=== PATIENT | male | born 1955 | race Caucasian/White ===

== ENCOUNTER 2016-07-06 08:51 | Outpatient (CLI) | payer OTHER ==
--- NOTE | 2016-07-06 09:45 | RAD ---
PORTABLE AP CHEST: Date: 07/06/16 HISTORY: Head/neck cancer. COMPARISON: 04/17/16. FINDINGS: Cardiac silhouette and pulmonary vasculature are within normal limits. Lungs remain expanded, but cl ear. No discrete pulmonary nodule or mass is visualized. There has been no interval change from the prior exam. IMPRESSION: Stable chest without evidence of an acute cardiopulmonary process. POS: [facility]
== END 2016-07-06 08:52 | disposition home or self-care (01) ==
LOC: MADRAD 08:51
PROVIDERS: ATTEND Radiology Radiation Oncology
DX: C12 Malignant neoplasm of pyriform sinus (principal)
CPT/HCPCS: 71020

== ENCOUNTER 2017-10-28 13:18 | Outpatient (CLI) | payer OTHER ==
--- NOTE | 2017-10-28 14:12 | RAD ---
LEFT KNEE THREE VIEWS: HISTORY: Left knee pain. FINDINGS: There is chronic appearing collapse of the medial tibial plateau with severe varus angulation. Less prominent cortical remodeling of the femoral condyles and lateral tibial plateau. Bulky tricompartme ntal osteophytosis. Joint space narrowing at the patellofemoral compartment. Fluid distention of th e suprapatellar bursa. Calcification over the arterial structures. IMPRESSION: 1. Severe osteoarthritic changes, including extensive remodeling of the medial tibial plateau and va woody angulation. Large joint effusion. 2. Atherosclerosis. POS: [facility]
== END 2017-10-28 13:19 | disposition home or self-care (01) ==
LOC: MADRAD 13:18
PROVIDERS: ATTEND Orthopaedic Surgery
DX: M25.562 Pain in left knee (principal); M17.12 Unilateral primary osteoarthritis, left knee; M25.462 Effusion, left knee; I70.90 Unspecified atherosclerosis; M21.862 Other specified acquired deformities of left lower leg

== ENCOUNTER 2019-08-19 19:50 | Emergency (ER) | payer OTHER ==
[2019-08-19] MEDS ORDERED: Sodium Chloride 0.9% 1,000 ML ONE (20:19)
[2019-08-19] MEDS ORDERED: Ondansetron PF 4 MG/2 ML Vial ONE (20:19)
[2019-08-19] MEDS ORDERED: Morphine 4 MG/ML VIAL ONE (20:19)
--- NOTE | 2019-08-19 20:19 | RAD ---
XR Hip Rt 2-3 View INDICATION: Right hip injury COMPARISON: None FINDINGS: Bones: There is a mildly displaced, comminuted right intertrochanteric hip fracture. Hip joint: There is mild to moderate right hip osteoarthrosis. SI joints and symphysis pubis: Radiographically normal. Intrapelvic contents: Visualized bowel gas pattern is within normal limits. Surrounding soft tissues: There are moderate vascular calcifications seen involving the visualized va sculature. IMPRESSION: 1. Mildly displaced, comminuted right intertrochanteric hip fracture.
[2019-08-19 20:20] LABS: #Basophils 0.3 thou/uL (0.0-0.2); #Lymphocytes 0.8 thou/uL (1.20-3.40); #Monocytes 0.8 thou/uL (0.11-0.59); #Neutrophils 9.8 thou/uL (1.40-6.50); %Basophils 2.6 % (0.0-1.0); %Eosinophils 0.1 % (0.0-10.0); %Lymphocytes 6.7 % (21.0-51.0); %Monocytes 6.5 % (0.0-10.0); Hemoglobin 13.2 g/dL (14.0-18.0); Mean Corpuscular HGB CONC 32.1 g/dL (32.0-36.0); Mean Corpuscular Hemoglobin 31.4 pg (27.0-31.0); Mean Platelet Volume 8.5 fL (7.4-10.4); Platelet Count 204 thou/uL (130-400); RBC Distribution Width 11.4 % (11.5-14.5); White Blood Cell (WBC) Count 11.7 thou/uL (4.8-10.8)
--- NOTE | 2019-08-19 20:31 | RAD ---
XR Elbow Rt 4 View STANDARD INDICATION: Elbow pain and injury FINDINGS: Bones: No acute fracture or subluxation is evident.. Joints: Mild osteoarthrosis. No joint capsular distention. Soft tissues: IV cannula seen within the antecubital fossa. IMPRESSION: No acute osseous abnormality.
[2019-08-19] MEDS ORDERED: Adacel (T-DAP) 0.5 ML SYRINGE ONE (20:33)
[2019-08-19 20:34] LABS: Anion Gap 21 mmol/L (10-20); BUN (Urea Nitrogen) 6 mg/dL (8.4-25.7); Calc. Creatinine Clearance 0 mL/min (70-130); Calcium 8.5 mg/dL (7.8-10.44); Carbon Dioxide 19 mmol/L (23-31); Chloride 94 mmol/L (98-107); Estimated GFR-MDRD Greater than 90; Glucose 121 mg/dL (80-115); Potassium 4.7 mmol/L (3.5-5.1); Sodium 129 mmol/L (136-145)
== END 2019-08-19 21:48 | disposition short-term general hospital (02) ==
LOC: MADERS 19:50
DX: S72.001A Fracture of unspecified part of neck of right femur, initial encounter for closed fracture (principal); F17.210 Nicotine dependence, cigarettes, uncomplicated; W17.89XA Other fall from one level to another, initial encounter
CPT/HCPCS: 80048; 85025; 90471; 90715; 96374; 96375; J2270; J2405; J7050

== ENCOUNTER 2019-11-23 13:48 | Outpatient (CLI) | payer MEDICARE, MEDICAID ==
--- NOTE | 2019-11-23 14:37 | RAD ---
RIGHT KNEE 3 VIEWS: Date: 11/23/2019 HISTORY: Osteoarthritis, right knee pain. FINDINGS/IMPRESSION: There are marked degenerative changes in the right knee. No fracture, dislocation, or bony destructio n is seen. Vascular calcifications are present. POS: OFF
== END 2019-11-23 13:49 | disposition home or self-care (01) ==
LOC: MADRAD 13:48
PROVIDERS: ATTEND Orthopaedic Surgery
DX: M17.11 Unilateral primary osteoarthritis, right knee (principal); I70.90 Unspecified atherosclerosis

== ENCOUNTER 2020-02-01 14:14 | Outpatient (CLI) | payer MEDICARE, MEDICAID ==
[2020-02-01 14:34] LABS: Clarity Clear (Clear); Leukocyte Negative (Negative); Nitrite Negative (Negative)
[2020-02-01 14:35] LABS: Bilirubin Negative (Negative); Blood, Urine Negative (Negative); Glucose, Urine (Dipstick) Negative (Negative); Ketone, Urine Negative (Negative); Protein, Urine (Dipstick) Negative (Neg-Trace); Urobilinogen 0.2 mg/dL (Less than 2)
--- NOTE | 2020-02-01 14:37 | RAD ---
EXAM: Two views chest PROVIDED CLINICAL HISTORY: Preoperative evaluation COMPARISON: 12/20/2017 FINDINGS: Cardiac silhouette and pulmonary vasculature are within normal limits. The lungs are clear. Stable w edge-shaped compression deformities are seen involving mid thoracic vertebral bodies. Multilevel degenerative changes are also again seen in the thoracic spine. IMPRESSION: No acute cardiopulmonary process. Stable wedge-shaped compression deformities involving midthoracic vertebral bodies.
[2020-02-01 14:40] LABS: INR-International Normal Ratio 0.9; PTT 29.7 sec (22.9-36.1); Prothrombin Time 12.6 sec (12.0-14.7)
[2020-02-01 14:45] LABS: ALT (SGPT) 16 U/L (8-55); AST (SGOT) 21 U/L (5-34); Alkaline Phosphatase 132 U/L (40-110); Anion Gap 15 mmol/L (10-20); BUN (Urea Nitrogen) 6 mg/dL (8.4-25.7); Bilirubin, Total 0.7 mg/dL (0.2-1.2); Calc. Creatinine Clearance 0 mL/min (70-130); Calcium 9.1 mg/dL (7.8-10.44); Carbon Dioxide 25 mmol/L (23-31); Chloride 93 mmol/L (98-107); Estimated GFR-MDRD Greater than 90; Globulin 3.1 g/dL (2.4-3.5); Glucose 98 mg/dL (80-115); Potassium 4.3 mmol/L (3.5-5.1); Protein, Total 7.1 g/dL (5.8-8.1); Sodium 129 mmol/L (136-145)
[2020-02-01 14:53] LABS: #Basophils 0.1 thou/uL (0.0-0.2); #Eosinphils 0.3 thou/uL (0.0-0.7); #Lymphocytes 1.5 thou/uL (1.20-3.40); #Monocytes 0.6 thou/uL (0.11-0.59); #Neutrophils 3.9 thou/uL (1.40-6.50); %Basophils 1.5 % (0.0-1.0); %Eosinophils 4.7 % (0.0-10.0); %Lymphocytes 23.5 % (21.0-51.0); %Monocytes 8.7 % (0.0-10.0); %Neutrophils 61.6 % (42.0-75.0); Bacteria/HPF Rare-Few HPF (None Seen); Hemoglobin 15.1 g/dL (14.0-18.0); Mean Corpuscular HGB CONC 32.3 g/dL (32.0-36.0); Mean Corpuscular Hemoglobin 31.9 pg (27.0-31.0); Mean Corpuscular Volume 98.8 fL (78.0-98.0); Mean Platelet Volume 7.5 fL (7.4-10.4); Platelet Count 259 thou/uL (130-400); RBC Distribution Width 10.6 % (11.5-14.5); RBC/HPF 0-3 HPF (0-3); Red Blood Cell (RBC) Count 4.74 mill/uL (4.70-6.10); Squamous Epithelial 0-3 HPF (0-3); WBC/HPF None Seen HPF (0-3); White Blood Cell (WBC) Count 6.4 thou/uL (4.8-10.8)
[2020-02-01 21:58] LABS: Creatinine, Urine 121.28 mg/dL (63-166); Microalbumin Urine 1.7 mg/dL (0.5-50.0)
== END 2020-02-01 14:15 | disposition home or self-care (01) ==
LOC: MADLAB 14:14
PROVIDERS: ATTEND Family Medicine
DX: Z01.818 Encounter for other preprocedural examination (principal); Z01.812 Encounter for preprocedural laboratory examination; M43.8X4 Other specified deforming dorsopathies, thoracic region
CPT/HCPCS: 36415; 71046; 80053; 81001; 82043; 85025; 85610; 85730

== ENCOUNTER 2020-05-08 11:50 | Emergency (ER) | payer MEDICARE, MEDICAID ==
[2020-05-08] MEDS ORDERED: Albuterol Sulfate 2.5 mg/0.5 ml Neb ONE (12:02)
[2020-05-08] MEDS ORDERED: methylPREDNISolone Sod Succ/PF 125 MG/2 ML VIAL ONE (12:32)
[2020-05-08] MEDS ORDERED: Ipratropium Bromide 2.5 ml Neb ONE (12:32)
--- NOTE | 2020-05-08 12:34 | RAD ---
Frontal radiograph chest: 05/08/2020 COMPARISON: 02/01/2020 HISTORY: Cough FINDINGS: There is extensive new interstitial opacity with a perihilar/bibasilar predominance, right greater than left. There is focal rounded increased density in the right hilar region. Blunting of bilateral costophrenic angles noted suggesting bilateral pleural effusions. Pulmonary vascular conges tion noted. IMPRESSION: Interstitial opacity in the perihilar regions and both lung bases with small bilateral pl eural effusions. Findings suggest interval development of pulmonary edema. Infectious pneumonitis cannot be excluded. These findings include a focal area of opacity with a rounded configuration in the right hilum. This is new when compared to prior imaging. This suggests focal airspace disease. Mass lesion cannot be fully excluded and thus, short-term follow-up imaging of the chest following treatment is advised to document resolution. CODE T
[2020-05-08 12:52] LABS: CKMB 5.7 ng/mL (0-6.6)
[2020-05-08 12:53] LABS: Hemoglobin 14.3 g/dL (14.0-18.0); Manual Diff?? YES; Mean Corpuscular HGB CONC 32.8 g/dL (32.0-36.0); Mean Corpuscular Hemoglobin 31.3 pg (27.0-31.0); Mean Corpuscular Volume 95.4 fL (78.0-98.0); Mean Platelet Volume 8.4 fL (7.4-10.4); Platelet Count 250 thou/uL (130-400); RBC Distribution Width 11.1 % (11.5-14.5); Red Blood Cell (RBC) Count 4.58 mill/uL (4.70-6.10); White Blood Cell (WBC) Count 11.9 thou/uL (4.8-10.8)
[2020-05-08 12:54] LABS: Anisocytosis SLIGHT = 6-15 cells (100X) (0-5/hpf); Band 2 % (5-11); Lymphocytes 7 % (21-51); Monocytes 10 % (0-10); Neutrophil 81 % (42-75); Platelet Morphology Comment Appears Adequate
[2020-05-08 12:58] LABS: AST (SGOT) 25 U/L (5-34); Albumin 3.9 g/dL (3.4-4.8); Anion Gap 20 mmol/L (10-20); BUN (Urea Nitrogen) 16 mg/dL (8.4-25.7); Bilirubin, Total 1.2 mg/dL (0.2-1.2); Calc. Creatinine Clearance 0 mL/min (70-130); Calcium 8.8 mg/dL (7.8-10.44); Carbon Dioxide 21 mmol/L (23-31); Chloride 87 mmol/L (98-107); Globulin 3.3 g/dL (2.4-3.5); Glucose 204 mg/dL (80-115); Potassium 4.3 mmol/L (3.5-5.1); Protein, Total 7.2 g/dL (5.8-8.1); Sodium 124 mmol/L (136-145)
[2020-05-08 12:59] LABS: ALT (SGPT) 17 U/L (8-55); Alkaline Phosphatase 111 U/L (40-110)
[2020-05-08 14:04] LABS: SARS-CoV-2 NAA Rapid Test Not Detected (NotDetected)
[2020-05-08] MEDS ORDERED: Doxycycline 100 MG CAP ONE (14:17)
[2020-05-08] MEDS ORDERED: Aspirin 325 MG TAB ONE (14:17)
[2020-05-08] MEDS ORDERED: Nitroglycerin 2% Ointment 1 INCH/1 GM Packet ONE (14:34)
[2020-05-08] MEDS ORDERED: Heparin 5,000 UNITS/ML VIAL ONE (14:43)
== END 2020-05-08 15:01 | disposition short-term general hospital (02) ==
LOC: MADERS 11:50
DX: J44.1 Chronic obstructive pulmonary disease with (acute) exacerbation (principal); I21.4 Non-ST elevation (NSTEMI) myocardial infarction; R94.31 Abnormal electrocardiogram [ECG] [EKG]; R06.03 Acute respiratory distress; F17.210 Nicotine dependence, cigarettes, uncomplicated; Z79.82 Long term (current) use of aspirin; Z79.51 Long term (current) use of inhaled steroids; Z79.899 Other long term (current) drug therapy
CPT/HCPCS: 0240U; 71045; 80053; 82553; 83880; 84484; 85025; 87804; 93005; 96374; 96375; J1644; J2930; J7611

== ENCOUNTER 2020-05-17 18:04 | Inpatient (IN) | payer MEDICARE, MEDICAID ==
[2020-05-17] MEDS ORDERED: Zolpidem Tartrate 5 MG TAB PO PRN (18:11)
[2020-05-17] MEDS ORDERED: Nitroglycerin 0.4 MG TAB (25 Tab Bottle) SL PRN (18:11)
[2020-05-17] MEDS ORDERED: Acetaminophen 325 MG TAB PO PRN (18:17)
[2020-05-17 19:03] LABS: ALT (SGPT) 74 U/L (8-55); AST (SGOT) 31 U/L (5-34); Albumin 3.3 g/dL (3.4-4.8); Alkaline Phosphatase 83 U/L (40-110); Anion Gap 13 mmol/L (10-20); BUN (Urea Nitrogen) 13 mg/dL (8.4-25.7); Bilirubin, Total 0.5 mg/dL (0.2-1.2); Calc. Creatinine Clearance 0 mL/min (70-130); Calcium 7.9 mg/dL (7.8-10.44); Carbon Dioxide 29 mmol/L (23-31); Chloride 91 mmol/L (98-107); Globulin 2.3 g/dL (2.4-3.5); Glucose 120 mg/dL (80-115); Potassium 4.3 mmol/L (3.5-5.1); Protein, Total 5.6 g/dL (5.8-8.1); Sodium 129 mmol/L (136-145)
[2020-05-17] MEDS: Mometasone/Formoterol 60 PUFF AER INH SCH (22:00)
[2020-05-17] MEDS: Famotidine 20 MG TAB PO SCH (22:01)
[2020-05-17] MEDS: Atorvastatin Calcium 40 MG TAB PO SCH (22:01)
[2020-05-17] MEDS: Enoxaparin Sodium 40 MG/0.4 ML SYRINGE SC SCH (22:02)
[2020-05-18] MEDS: Mometasone/Formoterol 60 PUFF AER INH SCH ×2 (01:16→21:30)
[2020-05-18 05:39] LABS: #Basophils 0.1 thou/uL (0.0-0.2); #Eosinphils 0.3 thou/uL (0.0-0.7); #Lymphocytes 1.3 thou/uL (1.20-3.40); #Monocytes 0.8 thou/uL (0.11-0.59); #Neutrophils 9.3 thou/uL (1.40-6.50); %Basophils 0.9 % (0.0-1.0); %Eosinophils 2.5 % (0.0-10.0); %Neutrophils 78.6 % (42.0-75.0); Hemoglobin 8.4 g/dL (14.0-18.0); Mean Corpuscular HGB CONC 33.4 g/dL (32.0-36.0); Mean Corpuscular Hemoglobin 32.1 pg (27.0-31.0); Mean Corpuscular Volume 96.1 fL (78.0-98.0); Mean Platelet Volume 7.8 fL (7.4-10.4); Platelet Count 326 thou/uL (130-400); RBC Distribution Width 11.5 % (11.5-14.5); Red Blood Cell (RBC) Count 2.63 mill/uL (4.70-6.10); White Blood Cell (WBC) Count 11.9 thou/uL (4.8-10.8)
[2020-05-18] MEDS ORDERED: Lisinopril 5 MG TAB PO SCH (09:00)
[2020-05-18] MEDS: Multivitamin W/ Minerals 1 TAB PO SCH (09:10)
[2020-05-18] MEDS: Folic Acid 1 MG TAB PO SCH (09:11)
[2020-05-18] MEDS: Thiamine 100 MG TAB PO SCH (09:12)
[2020-05-18] MEDS: Magnesium Oxide 400 MG TAB PO SCH (09:12)
[2020-05-18] MEDS: Famotidine 20 MG TAB PO SCH ×2 (09:12→20:30)
[2020-05-18] MEDS: Aspirin 325 mg Enteric Coated Tablet PO SCH (09:12)
[2020-05-18] MEDS: Lisinopril 5 MG TAB PO SCH (11:46)
[2020-05-18] MEDS: Carbamide Peroxide 6.5% Otic Drops 15 ml Bottle EA EAR PRN (14:53)
[2020-05-18] MEDS: Atorvastatin Calcium 40 MG TAB PO SCH (20:30)
[2020-05-18] MEDS: Enoxaparin Sodium 40 MG/0.4 ML SYRINGE SC SCH (20:31)
[2020-05-19] MEDS: Carbamide Peroxide 6.5% Otic Drops 15 ml Bottle EA EAR PRN (03:45)
[2020-05-19] MEDS: Magnesium Oxide 400 MG TAB PO SCH (08:30)
[2020-05-19] MEDS: Multivitamin W/ Minerals 1 TAB PO SCH (08:31)
[2020-05-19] MEDS: Famotidine 20 MG TAB PO SCH ×2 (08:31→20:55)
[2020-05-19] MEDS: Thiamine 100 MG TAB PO SCH (08:31)
[2020-05-19] MEDS: Mometasone/Formoterol 60 PUFF AER INH SCH ×2 (08:31→21:22)
[2020-05-19] MEDS: Folic Acid 1 MG TAB PO SCH (08:31)
[2020-05-19] MEDS: Aspirin 325 mg Enteric Coated Tablet PO SCH (08:31)
[2020-05-19] MEDS: Lisinopril 5 MG TAB PO SCH (08:32)
[2020-05-19] MEDS: Bisacodyl 5 MG TAB PO PRN (10:31)
[2020-05-19] MEDS ORDERED: Furosemide 40 MG TAB PO SCH (14:45)
[2020-05-19] MEDS: Enoxaparin Sodium 40 MG/0.4 ML SYRINGE SC SCH (20:54)
[2020-05-19] MEDS: Atorvastatin Calcium 40 MG TAB PO SCH (20:55)
[2020-05-20 05:24] LABS: Hemoglobin 8.2 g/dL (14.0-18.0); Mean Corpuscular HGB CONC 34.2 g/dL (32.0-36.0); Mean Corpuscular Hemoglobin 32.7 pg (27.0-31.0); Mean Corpuscular Volume 95.6 fL (78.0-98.0); Mean Platelet Volume 7.4 fL (7.4-10.4); Platelet Count 334 thou/uL (130-400); RBC Distribution Width 11.7 % (11.5-14.5); Red Blood Cell (RBC) Count 2.52 mill/uL (4.70-6.10)
[2020-05-20 05:34] LABS: Anion Gap 13 mmol/L (10-20); BUN (Urea Nitrogen) 11 mg/dL (8.4-25.7); Calc. Creatinine Clearance 159 mL/min (70-130); Carbon Dioxide 29 mmol/L (23-31); Chloride 92 mmol/L (98-107); Glucose 98 mg/dL (80-115); Potassium 4.6 mmol/L (3.5-5.1); Sodium 129 mmol/L (136-145)
[2020-05-20] MEDS: Aspirin 325 mg Enteric Coated Tablet PO SCH (08:35)
[2020-05-20] MEDS: Famotidine 20 MG TAB PO SCH ×2 (08:35→20:45)
[2020-05-20] MEDS: Magnesium Oxide 400 MG TAB PO SCH (08:36)
[2020-05-20] MEDS: Folic Acid 1 MG TAB PO SCH (08:36)
[2020-05-20] MEDS: Thiamine 100 MG TAB PO SCH (08:36)
[2020-05-20] MEDS: Bisacodyl 5 MG TAB PO PRN (08:37)
[2020-05-20] MEDS: Lisinopril 5 MG TAB PO SCH (08:39)
[2020-05-20] MEDS: Carbamide Peroxide 6.5% Otic Drops 15 ml Bottle EA EAR PRN (08:40)
[2020-05-20] MEDS: Mometasone/Formoterol 60 PUFF AER INH SCH ×2 (08:40→20:45)
[2020-05-20] MEDS: Multivitamin W/ Minerals 1 TAB PO SCH (09:00)
[2020-05-20] MEDS ORDERED: Docusate 100 MG CAP PO PRN (13:36)
[2020-05-20] MEDS ORDERED: Furosemide 20 MG TAB PO SCH (13:45)
[2020-05-20] MEDS ORDERED: Polyethylene Glycol 3350 17 GM Packet PO SCH (13:45)
[2020-05-20] MEDS: Albuterol Sulfate 2.5 mg/3 ml Neb NEB PRN (15:39)
[2020-05-20] MEDS: Enoxaparin Sodium 40 MG/0.4 ML SYRINGE SC SCH (20:45)
[2020-05-20] MEDS: Atorvastatin Calcium 40 MG TAB PO SCH (20:45)
[2020-05-21] MEDS: Mometasone/Formoterol 60 PUFF AER INH SCH ×2 (10:05→21:46)
[2020-05-21] MEDS: Polyethylene Glycol 3350 17 GM Packet PO SCH (10:06)
[2020-05-21] MEDS: Furosemide 20 MG TAB PO SCH (10:06)
[2020-05-21] MEDS: Folic Acid 1 MG TAB PO SCH (10:06)
[2020-05-21] MEDS: Famotidine 20 MG TAB PO SCH ×2 (10:06→21:43)
[2020-05-21] MEDS: Aspirin 325 mg Enteric Coated Tablet PO SCH (10:06)
[2020-05-21] MEDS: Thiamine 100 MG TAB PO SCH (10:06)
[2020-05-21] MEDS: Magnesium Oxide 400 MG TAB PO SCH (10:07)
[2020-05-21] MEDS: Multivitamin W/ Minerals 1 TAB PO SCH (10:07)
[2020-05-21] MEDS: Bisacodyl 5 MG TAB PO PRN (21:42)
[2020-05-21] MEDS: Atorvastatin Calcium 40 MG TAB PO SCH (21:43)
[2020-05-21] MEDS: Enoxaparin Sodium 40 MG/0.4 ML SYRINGE SC SCH (21:43)
[2020-05-22] MEDS: Magnesium Oxide 400 MG TAB PO SCH (08:14)
[2020-05-22] MEDS: Thiamine 100 MG TAB PO SCH (08:14)
[2020-05-22] MEDS: Multivitamin W/ Minerals 1 TAB PO SCH (08:14)
[2020-05-22] MEDS: Aspirin 325 mg Enteric Coated Tablet PO SCH (08:14)
[2020-05-22] MEDS: Famotidine 20 MG TAB PO SCH ×2 (08:14→21:30)
[2020-05-22] MEDS: Polyethylene Glycol 3350 17 GM Packet PO SCH (08:15)
[2020-05-22] MEDS: Furosemide 20 MG TAB PO SCH (08:15)
[2020-05-22] MEDS: Folic Acid 1 MG TAB PO SCH (08:15)
[2020-05-22] MEDS: Mometasone/Formoterol 60 PUFF AER INH SCH ×2 (08:15→21:30)
[2020-05-22] MEDS: Enoxaparin Sodium 40 MG/0.4 ML SYRINGE SC SCH (21:30)
[2020-05-22] MEDS: Atorvastatin Calcium 40 MG TAB PO SCH (21:30)
[2020-05-23] MEDS: Magnesium Oxide 400 MG TAB PO SCH (08:20)
[2020-05-23] MEDS: Famotidine 20 MG TAB PO SCH ×2 (08:20→21:06)
[2020-05-23] MEDS: Furosemide 20 MG TAB PO SCH (08:20)
[2020-05-23] MEDS: Multivitamin W/ Minerals 1 TAB PO SCH (08:20)
[2020-05-23] MEDS: Thiamine 100 MG TAB PO SCH (08:20)
[2020-05-23] MEDS: Aspirin 325 mg Enteric Coated Tablet PO SCH (08:20)
[2020-05-23] MEDS: Folic Acid 1 MG TAB PO SCH (08:20)
[2020-05-23] MEDS: Polyethylene Glycol 3350 17 GM Packet PO SCH (08:21)
[2020-05-23] MEDS: Mometasone/Formoterol 60 PUFF AER INH SCH ×2 (08:21→21:07)
[2020-05-23] MEDS: Bisacodyl 5 MG TAB PO PRN (16:30)
[2020-05-23] MEDS: Atorvastatin Calcium 40 MG TAB PO SCH (21:06)
[2020-05-23] MEDS: Enoxaparin Sodium 40 MG/0.4 ML SYRINGE SC SCH (21:08)
[2020-05-24] MEDS: Folic Acid 1 MG TAB PO SCH (10:26)
[2020-05-24] MEDS: Aspirin 325 mg Enteric Coated Tablet PO SCH (10:26)
[2020-05-24] MEDS: Multivitamin W/ Minerals 1 TAB PO SCH ×2 (10:26→10:27)
[2020-05-24] MEDS: Magnesium Oxide 400 MG TAB PO SCH (10:26)
[2020-05-24] MEDS: Thiamine 100 MG TAB PO SCH (10:27)
[2020-05-24] MEDS: Furosemide 20 MG TAB PO SCH (10:27)
[2020-05-24] MEDS: Famotidine 20 MG TAB PO SCH ×2 (10:27→20:27)
[2020-05-24] MEDS: Mometasone/Formoterol 60 PUFF AER INH SCH ×2 (10:34→20:27)
[2020-05-24] MEDS: Polyethylene Glycol 3350 17 GM Packet PO SCH (10:38)
[2020-05-24] MEDS: Enoxaparin Sodium 40 MG/0.4 ML SYRINGE SC SCH (20:27)
[2020-05-24] MEDS: Atorvastatin Calcium 40 MG TAB PO SCH (20:27)
[2020-05-25] MEDS: Magnesium Oxide 400 MG TAB PO SCH (09:19)
[2020-05-25] MEDS: Aspirin 325 mg Enteric Coated Tablet PO SCH (09:19)
[2020-05-25] MEDS: Polyethylene Glycol 3350 17 GM Packet PO SCH (09:19)
[2020-05-25] MEDS: Famotidine 20 MG TAB PO SCH ×2 (09:19→20:31)
[2020-05-25] MEDS: Folic Acid 1 MG TAB PO SCH (09:20)
[2020-05-25] MEDS: Thiamine 100 MG TAB PO SCH (09:20)
[2020-05-25] MEDS: Furosemide 20 MG TAB PO SCH (09:20)
[2020-05-25] MEDS: Mometasone/Formoterol 60 PUFF AER INH SCH ×2 (09:20→20:30)
[2020-05-25] MEDS ORDERED: Furosemide 20 MG TAB PO SCH (19:00)
[2020-05-25 19:14] LABS: #Basophils 0.1 thou/uL (0.0-0.2); #Eosinphils 0.1 thou/uL (0.0-0.7); #Lymphocytes 0.6 thou/uL (1.20-3.40); #Monocytes 0.6 thou/uL (0.11-0.59); #Neutrophils 4.1 thou/uL (1.40-6.50); %Basophils 1.7 % (0.0-1.0); %Eosinophils 2.6 % (0.0-10.0); %Monocytes 10.7 % (0.0-10.0); Hemoglobin 7.6 g/dL (14.0-18.0); Mean Corpuscular HGB CONC 32.2 g/dL (32.0-36.0); Mean Corpuscular Hemoglobin 31.2 pg (27.0-31.0); Mean Corpuscular Volume 96.9 fL (78.0-98.0); Mean Platelet Volume 6.8 fL (7.4-10.4); Platelet Count 314 thou/uL (130-400); RBC Distribution Width 12.2 % (11.5-14.5); Red Blood Cell (RBC) Count 2.45 mill/uL (4.70-6.10); White Blood Cell (WBC) Count 5.5 thou/uL (4.8-10.8)
[2020-05-25 19:29] LABS: ALT (SGPT) 28 U/L (8-55); AST (SGOT) 19 U/L (5-34); Albumin 3.3 g/dL (3.4-4.8); Alkaline Phosphatase 115 U/L (40-110); Anion Gap 14 mmol/L (10-20); BUN (Urea Nitrogen) 16 mg/dL (8.4-25.7); Bilirubin, Total 0.4 mg/dL (0.2-1.2); Calc. Creatinine Clearance 133 mL/min (70-130); Calcium 8.4 mg/dL (7.8-10.44); Carbon Dioxide 29 mmol/L (23-31); Chloride 94 mmol/L (98-107); Globulin 2.4 g/dL (2.4-3.5); Glucose 107 mg/dL (80-115); Potassium 4.6 mmol/L (3.5-5.1); Protein, Total 5.7 g/dL (5.8-8.1); Sodium 132 mmol/L (136-145)
[2020-05-25] MEDS: Enoxaparin Sodium 40 MG/0.4 ML SYRINGE SC SCH (20:30)
[2020-05-25] MEDS: Atorvastatin Calcium 40 MG TAB PO SCH (20:30)
[2020-05-26] MEDS: Aspirin 325 mg Enteric Coated Tablet PO SCH (09:27)
[2020-05-26] MEDS: Famotidine 20 MG TAB PO SCH ×2 (09:27→20:07)
[2020-05-26] MEDS: Folic Acid 1 MG TAB PO SCH (09:27)
[2020-05-26] MEDS: Multivitamin W/ Minerals 1 TAB PO SCH (09:27)
[2020-05-26] MEDS: Thiamine 100 MG TAB PO SCH (09:28)
[2020-05-26] MEDS: Polyethylene Glycol 3350 17 GM Packet PO SCH (09:28)
[2020-05-26] MEDS: Furosemide 20 MG TAB PO SCH ×2 (09:28→13:26)
[2020-05-26] MEDS: Mometasone/Formoterol 60 PUFF AER INH SCH ×2 (09:28→20:07)
[2020-05-26] MEDS: Magnesium Oxide 400 MG TAB PO SCH (09:28)
[2020-05-26] MEDS: Enoxaparin Sodium 40 MG/0.4 ML SYRINGE SC SCH (20:06)
[2020-05-26] MEDS: Atorvastatin Calcium 40 MG TAB PO SCH (20:07)
[2020-05-27] MEDS: Polyethylene Glycol 3350 17 GM Packet PO SCH (10:33)
[2020-05-27] MEDS: Mometasone/Formoterol 60 PUFF AER INH SCH ×2 (10:33→21:35)
[2020-05-27] MEDS: Thiamine 100 MG TAB PO SCH (10:34)
[2020-05-27] MEDS: Aspirin 325 mg Enteric Coated Tablet PO SCH (10:34)
[2020-05-27] MEDS: Famotidine 20 MG TAB PO SCH ×2 (10:34→21:34)
[2020-05-27] MEDS: Folic Acid 1 MG TAB PO SCH (10:34)
[2020-05-27] MEDS: Multivitamin W/ Minerals 1 TAB PO SCH (10:34)
[2020-05-27] MEDS: Furosemide 20 MG TAB PO SCH ×2 (10:35→13:14)
[2020-05-27] MEDS: Magnesium Oxide 400 MG TAB PO SCH (10:35)
[2020-05-27] MEDS ORDERED: WARFARIN IVPB PRN (13:33)
[2020-05-27] MEDS ORDERED: Furosemide 20 MG/2 ML VIAL SLOW IVP SCH (17:30)
[2020-05-27] MEDS: Enoxaparin Sodium 40 MG/0.4 ML SYRINGE SC SCH (21:33)
[2020-05-27] MEDS: Atorvastatin Calcium 40 MG TAB PO SCH (21:33)
[2020-05-28] MEDS: Magnesium Oxide 400 MG TAB PO SCH (08:39)
[2020-05-28] MEDS: Mometasone/Formoterol 60 PUFF AER INH SCH ×2 (08:39→21:27)
[2020-05-28] MEDS: Thiamine 100 MG TAB PO SCH (08:39)
[2020-05-28] MEDS: Folic Acid 1 MG TAB PO SCH (08:39)
[2020-05-28] MEDS: Famotidine 20 MG TAB PO SCH ×2 (08:39→21:23)
[2020-05-28] MEDS: Aspirin 325 mg Enteric Coated Tablet PO SCH (08:39)
[2020-05-28] MEDS: Multivitamin W/ Minerals 1 TAB PO SCH (08:39)
[2020-05-28] MEDS: Furosemide 20 MG TAB PO SCH ×2 (08:39→15:04)
[2020-05-28] MEDS: Polyethylene Glycol 3350 17 GM Packet PO SCH (08:40)
[2020-05-28] MEDS ORDERED: Senokot S 8.6-50 MG TAB PO PRN (11:16)
[2020-05-28] MEDS ORDERED: Senokot S 8.6-50 MG TAB PO SCH (11:30)
[2020-05-28] MEDS ORDERED: Potassium Chloride 10 MEQ TAB PO SCH (17:15)
[2020-05-28] MEDS ORDERED: Furosemide 20 MG/2 ML VIAL SLOW IVP SCH (17:15)
[2020-05-28] MEDS: Atorvastatin Calcium 40 MG TAB PO SCH (21:23)
[2020-05-28] MEDS: Enoxaparin Sodium 40 MG/0.4 ML SYRINGE SC SCH (21:23)
[2020-05-29] MEDS ORDERED: Furosemide 20 MG/2 ML VIAL SLOW IVP SCH (06:00)
[2020-05-29 06:02] LABS: Anion Gap 11 mmol/L (10-20); BUN (Urea Nitrogen) 16 mg/dL (8.4-25.7); Calc. Creatinine Clearance 149 mL/min (70-130); Carbon Dioxide 31 mmol/L (23-31); Chloride 96 mmol/L (98-107); Glucose 95 mg/dL (80-115); Potassium 4.4 mmol/L (3.5-5.1); Sodium 134 mmol/L (136-145)
[2020-05-29 06:12] LABS: #Basophils 0.1 thou/uL (0.0-0.2); #Eosinphils 0.2 thou/uL (0.0-0.7); #Lymphocytes 0.6 thou/uL (1.20-3.40); #Monocytes 0.6 thou/uL (0.11-0.59); #Neutrophils 3.5 thou/uL (1.40-6.50); %Basophils 1.4 % (0.0-1.0); %Eosinophils 4.7 % (0.0-10.0); %Monocytes 11.7 % (0.0-10.0); %Neutrophils 70.1 % (42.0-75.0); Hemoglobin 8.1 g/dL (14.0-18.0); Mean Corpuscular Hemoglobin 30.9 pg (27.0-31.0); Mean Corpuscular Volume 96.4 fL (78.0-98.0); Mean Platelet Volume 7.3 fL (7.4-10.4); Platelet Count 247 thou/uL (130-400); RBC Distribution Width 12.8 % (11.5-14.5); Red Blood Cell (RBC) Count 2.63 mill/uL (4.70-6.10)
[2020-05-29] MEDS: Mometasone/Formoterol 60 PUFF AER INH SCH ×2 (08:49→20:21)
[2020-05-29] MEDS: Triamcinolone 0.1% Cream 15 GM TUBE TOP SCH ×2 (08:49→20:22)
[2020-05-29] MEDS: Polyethylene Glycol 3350 17 GM Packet PO SCH (08:50)
[2020-05-29] MEDS: Multivitamin W/ Minerals 1 TAB PO SCH (08:51)
[2020-05-29] MEDS: Folic Acid 1 MG TAB PO SCH (08:51)
[2020-05-29] MEDS: Famotidine 20 MG TAB PO SCH ×2 (08:51→20:21)
[2020-05-29] MEDS: Potassium Chloride 20 MEQ TAB PO SCH (08:51)
[2020-05-29] MEDS: Aspirin 325 mg Enteric Coated Tablet PO SCH (08:51)
[2020-05-29] MEDS: Magnesium Oxide 400 MG TAB PO SCH (08:51)
[2020-05-29] MEDS: Thiamine 100 MG TAB PO SCH (08:51)
[2020-05-29] MEDS: Furosemide 40 MG/4 ML VIAL SLOW IVP SCH (15:29)
[2020-05-29] MEDS: Atorvastatin Calcium 40 MG TAB PO SCH (20:21)
[2020-05-29] MEDS: Enoxaparin Sodium 40 MG/0.4 ML SYRINGE SC SCH (20:21)
[2020-05-29] MEDS ORDERED: hydrOXYzine 25 MG TAB PO SCH (21:00)
[2020-05-30] MEDS: Furosemide 40 MG/4 ML VIAL SLOW IVP SCH ×2 (05:22→14:44)
[2020-05-30] MEDS: Potassium Chloride 20 MEQ TAB PO SCH (08:37)
[2020-05-30] MEDS: Aspirin 325 mg Enteric Coated Tablet PO SCH (08:37)
[2020-05-30] MEDS: Famotidine 20 MG TAB PO SCH ×2 (08:37→20:46)
[2020-05-30] MEDS: Folic Acid 1 MG TAB PO SCH (08:37)
[2020-05-30] MEDS: Magnesium Oxide 400 MG TAB PO SCH (08:37)
[2020-05-30] MEDS: Polyethylene Glycol 3350 17 GM Packet PO SCH (08:37)
[2020-05-30] MEDS: Multivitamin W/ Minerals 1 TAB PO SCH (08:37)
[2020-05-30] MEDS: Thiamine 100 MG TAB PO SCH (08:38)
[2020-05-30] MEDS: Triamcinolone 0.1% Cream 15 GM TUBE TOP SCH ×2 (08:43→20:48)
[2020-05-30] MEDS: Mometasone/Formoterol 60 PUFF AER INH SCH ×2 (08:43→20:48)
[2020-05-30] MEDS: Enoxaparin Sodium 40 MG/0.4 ML SYRINGE SC SCH (20:46)
[2020-05-30] MEDS: Atorvastatin Calcium 40 MG TAB PO SCH (20:46)
[2020-05-31] MEDS: Furosemide 40 MG/4 ML VIAL SLOW IVP SCH ×2 (05:12→15:03)
[2020-05-31] MEDS: Aspirin 325 mg Enteric Coated Tablet PO SCH (08:21)
[2020-05-31] MEDS: Potassium Chloride 20 MEQ TAB PO SCH (08:21)
[2020-05-31] MEDS: Thiamine 100 MG TAB PO SCH (08:21)
[2020-05-31] MEDS: Famotidine 20 MG TAB PO SCH ×2 (08:21→22:54)
[2020-05-31] MEDS: Folic Acid 1 MG TAB PO SCH (08:21)
[2020-05-31] MEDS: Multivitamin W/ Minerals 1 TAB PO SCH (08:21)
[2020-05-31] MEDS: Magnesium Oxide 400 MG TAB PO SCH (08:21)
[2020-05-31] MEDS: Polyethylene Glycol 3350 17 GM Packet PO SCH (08:21)
[2020-05-31] MEDS: Mometasone/Formoterol 60 PUFF AER INH SCH ×2 (08:22→22:57)
[2020-05-31] MEDS: Triamcinolone 0.1% Cream 15 GM TUBE TOP SCH ×2 (08:22→22:55)
[2020-05-31] MEDS: Atorvastatin Calcium 40 MG TAB PO SCH (22:54)
[2020-05-31] MEDS: Enoxaparin Sodium 40 MG/0.4 ML SYRINGE SC SCH (22:58)
[2020-06-01] MEDS: Furosemide 40 MG/4 ML VIAL SLOW IVP SCH (06:06)
[2020-06-01 08:13] LABS: Anion Gap 12 mmol/L (10-20); BUN (Urea Nitrogen) 13 mg/dL (8.4-25.7); Calc. Creatinine Clearance 160 mL/min (70-130); Calcium 8.2 mg/dL (7.8-10.44); Carbon Dioxide 34 mmol/L (23-31); Chloride 95 mmol/L (98-107); Glucose 93 mg/dL (80-115); Potassium 4.6 mmol/L (3.5-5.1); Sodium 136 mmol/L (136-145)
[2020-06-01] MEDS: Thiamine 100 MG TAB PO SCH (08:43)
[2020-06-01] MEDS: Magnesium Oxide 400 MG TAB PO SCH (08:43)
[2020-06-01] MEDS: Polyethylene Glycol 3350 17 GM Packet PO SCH (08:43)
[2020-06-01] MEDS: Multivitamin W/ Minerals 1 TAB PO SCH (08:43)
[2020-06-01] MEDS: Aspirin 325 mg Enteric Coated Tablet PO SCH (08:43)
[2020-06-01] MEDS: Potassium Chloride 20 MEQ TAB PO SCH (08:43)
[2020-06-01] MEDS: Famotidine 20 MG TAB PO SCH ×2 (08:43→20:40)
[2020-06-01] MEDS: Mometasone/Formoterol 60 PUFF AER INH SCH ×2 (08:51→20:41)
[2020-06-01] MEDS ORDERED: Furosemide 20 MG TAB PO SCH (09:00)
[2020-06-01] MEDS: Folic Acid 1 MG TAB PO SCH (09:16)
[2020-06-01] MEDS: Furosemide 40 MG TAB PO SCH (10:06)
[2020-06-01] MEDS: Triamcinolone 0.1% Cream 15 GM TUBE TOP SCH ×2 (10:28→20:40)
[2020-06-01] MEDS: Enoxaparin Sodium 40 MG/0.4 ML SYRINGE SC SCH (20:40)
[2020-06-01] MEDS: Atorvastatin Calcium 40 MG TAB PO SCH (20:41)
[2020-06-02] MEDS: Multivitamin W/ Minerals 1 TAB PO SCH (08:46)
[2020-06-02] MEDS: Thiamine 100 MG TAB PO SCH (08:46)
[2020-06-02] MEDS: Aspirin 325 mg Enteric Coated Tablet PO SCH (08:46)
[2020-06-02] MEDS: Famotidine 20 MG TAB PO SCH ×2 (08:46→20:18)
[2020-06-02] MEDS: Potassium Chloride 20 MEQ TAB PO SCH (08:46)
[2020-06-02] MEDS: Furosemide 40 MG TAB PO SCH (08:47)
[2020-06-02] MEDS: Polyethylene Glycol 3350 17 GM Packet PO SCH (08:47)
[2020-06-02] MEDS: Magnesium Oxide 400 MG TAB PO SCH (08:47)
[2020-06-02] MEDS: Folic Acid 1 MG TAB PO SCH (08:47)
[2020-06-02] MEDS: Triamcinolone 0.1% Cream 15 GM TUBE TOP SCH ×2 (08:47→20:18)
[2020-06-02] MEDS: Mometasone/Formoterol 60 PUFF AER INH SCH ×2 (08:51→20:19)
[2020-06-02] MEDS ORDERED: Furosemide 20 MG TAB PO SCH (09:00)
[2020-06-02 19:45] LABS: Hemoglobin 8.6 g/dL (14.0-18.0); Mean Corpuscular HGB CONC 32.3 g/dL (32.0-36.0); Mean Corpuscular Hemoglobin 30.5 pg (27.0-31.0); Mean Corpuscular Volume 94.4 fL (78.0-98.0); Mean Platelet Volume 6.3 fL (7.4-10.4); Platelet Count 241 thou/uL (130-400); RBC Distribution Width 12.5 % (11.5-14.5); Red Blood Cell (RBC) Count 2.81 mill/uL (4.70-6.10); White Blood Cell (WBC) Count 4.4 thou/uL (4.8-10.8)
[2020-06-02 20:03] LABS: Band 9 % (5-11); Lymphocytes 22 % (21-51); MDiff Complete? YES; Monocytes 6 % (0-10); Neutrophil 63 % (42-75); Platelet Morphology Comment Appears Adequate
[2020-06-02] MEDS: Atorvastatin Calcium 40 MG TAB PO SCH (20:18)
[2020-06-02] MEDS: Enoxaparin Sodium 40 MG/0.4 ML SYRINGE SC SCH (20:19)
[2020-06-03 06:07] LABS: Eosinophils 11 % (0-10); Hemoglobin 8.2 g/dL (14.0-18.0); Hypochromia MODERATE=16-30 cells (100X) (0-5/hpf); Lymphocytes 25 % (21-51); MDiff Complete? YES; Mean Corpuscular HGB CONC 31.9 g/dL (32.0-36.0); Mean Platelet Volume 6.7 fL (7.4-10.4); Monocytes 7 % (0-10); Neutrophil 56 % (42-75); Platelet Count 231 thou/uL (130-400); Platelet Morphology Comment Appears Adequate; RBC Distribution Width 12.6 % (11.5-14.5); Red Blood Cell (RBC) Count 2.73 mill/uL (4.70-6.10); White Blood Cell (WBC) Count 4.3 thou/uL (4.8-10.8)
[2020-06-03 06:26] LABS: Anion Gap 11 mmol/L (10-20); BUN (Urea Nitrogen) 11 mg/dL (8.4-25.7); Calc. Creatinine Clearance 162 mL/min (70-130); Calcium 7.9 mg/dL (7.8-10.44); Carbon Dioxide 31 mmol/L (23-31); Chloride 97 mmol/L (98-107); Glucose 95 mg/dL (80-115); Potassium 4.4 mmol/L (3.5-5.1); Sodium 135 mmol/L (136-145)
[2020-06-03] MEDS: Magnesium Oxide 400 MG TAB PO SCH (08:52)
[2020-06-03] MEDS: Potassium Chloride 20 MEQ TAB PO SCH (08:52)
[2020-06-03] MEDS: Multivitamin W/ Minerals 1 TAB PO SCH (08:52)
[2020-06-03] MEDS: Aspirin 325 mg Enteric Coated Tablet PO SCH (08:53)
[2020-06-03] MEDS: Furosemide 40 MG TAB PO SCH (08:53)
[2020-06-03] MEDS: Famotidine 20 MG TAB PO SCH ×2 (08:53→20:30)
[2020-06-03] MEDS: Folic Acid 1 MG TAB PO SCH (08:53)
[2020-06-03] MEDS: Mometasone/Formoterol 60 PUFF AER INH SCH ×2 (08:54→20:30)
[2020-06-03] MEDS: Polyethylene Glycol 3350 17 GM Packet PO SCH (08:54)
[2020-06-03] MEDS: Thiamine 100 MG TAB PO SCH (08:56)
[2020-06-03] MEDS: Triamcinolone 0.1% Cream 15 GM TUBE TOP SCH ×2 (08:59→20:32)
[2020-06-03] MEDS: Albuterol Sulfate 2.5 mg/3 ml Neb NEB PRN (12:36)
[2020-06-03] MEDS: Naproxen 500 MG TAB PO SCH (17:57)
[2020-06-03] MEDS: Enoxaparin Sodium 40 MG/0.4 ML SYRINGE SC SCH (20:30)
[2020-06-03] MEDS: Atorvastatin Calcium 40 MG TAB PO SCH (20:30)
[2020-06-04] MEDS: Naproxen 500 MG TAB PO SCH ×2 (05:18→17:23)
[2020-06-04] MEDS: Folic Acid 1 MG TAB PO SCH (08:24)
[2020-06-04] MEDS: Thiamine 100 MG TAB PO SCH (08:24)
[2020-06-04] MEDS: Potassium Chloride 20 MEQ TAB PO SCH (08:24)
[2020-06-04] MEDS: Famotidine 20 MG TAB PO SCH ×2 (08:24→21:05)
[2020-06-04] MEDS: Magnesium Oxide 400 MG TAB PO SCH (08:24)
[2020-06-04] MEDS: Multivitamin W/ Minerals 1 TAB PO SCH (08:24)
[2020-06-04] MEDS: Furosemide 40 MG TAB PO SCH (08:24)
[2020-06-04] MEDS: Polyethylene Glycol 3350 17 GM Packet PO SCH (08:25)
[2020-06-04] MEDS: Mometasone/Formoterol 60 PUFF AER INH SCH ×2 (08:28→21:05)
[2020-06-04] MEDS: Aspirin 325 mg Enteric Coated Tablet PO SCH (08:28)
[2020-06-04] MEDS: Triamcinolone 0.1% Cream 15 GM TUBE TOP SCH ×2 (08:35→21:12)
[2020-06-04] MEDS: Atorvastatin Calcium 40 MG TAB PO SCH (21:04)
[2020-06-04] MEDS: Enoxaparin Sodium 40 MG/0.4 ML SYRINGE SC SCH (21:05)
[2020-06-05] MEDS: Naproxen 500 MG TAB PO SCH ×2 (05:19→17:39)
[2020-06-05] MEDS: Polyethylene Glycol 3350 17 GM Packet PO SCH (08:12)
[2020-06-05] MEDS: Thiamine 100 MG TAB PO SCH (08:12)
[2020-06-05] MEDS: Multivitamin W/ Minerals 1 TAB PO SCH (08:12)
[2020-06-05] MEDS: Famotidine 20 MG TAB PO SCH ×2 (08:12→20:19)
[2020-06-05] MEDS: Potassium Chloride 20 MEQ TAB PO SCH (08:13)
[2020-06-05] MEDS: Aspirin 325 mg Enteric Coated Tablet PO SCH (08:13)
[2020-06-05] MEDS: Mometasone/Formoterol 60 PUFF AER INH SCH ×2 (08:13→20:19)
[2020-06-05] MEDS: Magnesium Oxide 400 MG TAB PO SCH (08:13)
[2020-06-05] MEDS: Furosemide 40 MG TAB PO SCH (08:13)
[2020-06-05] MEDS: Folic Acid 1 MG TAB PO SCH (08:13)
[2020-06-05] MEDS: Triamcinolone 0.1% Cream 15 GM TUBE TOP SCH ×2 (11:31→21:16)
[2020-06-05] MEDS ORDERED: Furosemide 40 MG TAB PO SCH (19:15)
[2020-06-05] MEDS: Enoxaparin Sodium 40 MG/0.4 ML SYRINGE SC SCH (20:18)
[2020-06-05] MEDS: Atorvastatin Calcium 40 MG TAB PO SCH (20:19)
[2020-06-05] MEDS ORDERED: Ferrous Sulfate 325 MG TAB PO SCH (21:00)
[2020-06-06] MEDS: Naproxen 500 MG TAB PO SCH ×2 (05:43→20:32)
[2020-06-06] MEDS: Furosemide 40 MG TAB PO SCH ×2 (05:45→13:28)
[2020-06-06] MEDS: Mometasone/Formoterol 60 PUFF AER INH SCH ×2 (08:08→20:33)
[2020-06-06] MEDS: Multivitamin W/ Minerals 1 TAB PO SCH (08:09)
[2020-06-06] MEDS: Polyethylene Glycol 3350 17 GM Packet PO SCH (08:09)
[2020-06-06] MEDS: Magnesium Oxide 400 MG TAB PO SCH (08:09)
[2020-06-06] MEDS: Famotidine 20 MG TAB PO SCH ×2 (08:09→20:31)
[2020-06-06] MEDS: Folic Acid 1 MG TAB PO SCH (08:09)
[2020-06-06] MEDS: Thiamine 100 MG TAB PO SCH (08:09)
[2020-06-06] MEDS: Ferrous Sulfate 325 MG TAB PO SCH ×2 (08:09→17:46)
[2020-06-06] MEDS: Aspirin 325 mg Enteric Coated Tablet PO SCH (08:09)
[2020-06-06] MEDS: Potassium Chloride 20 MEQ TAB PO SCH (08:09)
[2020-06-06] MEDS: Triamcinolone 0.1% Cream 15 GM TUBE TOP SCH ×2 (08:10→20:36)
[2020-06-06] MEDS: Enoxaparin Sodium 40 MG/0.4 ML SYRINGE SC SCH (20:31)
[2020-06-06] MEDS: Atorvastatin Calcium 40 MG TAB PO SCH (20:31)
[2020-06-07] MEDS: Furosemide 40 MG TAB PO SCH ×2 (05:49→14:57)
[2020-06-07] MEDS: Polyethylene Glycol 3350 17 GM Packet PO SCH (08:35)
[2020-06-07] MEDS: Mometasone/Formoterol 60 PUFF AER INH SCH ×2 (08:35→21:43)
[2020-06-07] MEDS: Magnesium Oxide 400 MG TAB PO SCH (08:38)
[2020-06-07] MEDS: Naproxen 500 MG TAB PO SCH ×2 (08:38→20:21)
[2020-06-07] MEDS: Aspirin 325 mg Enteric Coated Tablet PO SCH (08:38)
[2020-06-07] MEDS: Famotidine 20 MG TAB PO SCH ×2 (08:38→20:21)
[2020-06-07] MEDS: Folic Acid 1 MG TAB PO SCH (08:38)
[2020-06-07] MEDS: Ferrous Sulfate 325 MG TAB PO SCH ×2 (08:39→16:56)
[2020-06-07] MEDS: Potassium Chloride 20 MEQ TAB PO SCH (08:39)
[2020-06-07] MEDS: Multivitamin W/ Minerals 1 TAB PO SCH (08:39)
[2020-06-07] MEDS: Thiamine 100 MG TAB PO SCH (08:39)
[2020-06-07] MEDS: Triamcinolone 0.1% Cream 15 GM TUBE TOP SCH ×2 (08:40→20:22)
[2020-06-07] MEDS ORDERED: Enoxaparin Sodium 40 MG/0.4 ML SYRINGE ONE (19:49)
[2020-06-07] MEDS: Atorvastatin Calcium 40 MG TAB PO SCH (20:21)
[2020-06-07] MEDS: Enoxaparin Sodium 40 MG/0.4 ML SYRINGE SC SCH (20:21)
[2020-06-08] MEDS: Furosemide 40 MG TAB PO SCH ×2 (05:59→14:53)
[2020-06-08] MEDS: Ferrous Sulfate 325 MG TAB PO SCH ×2 (09:16→17:15)
[2020-06-08] MEDS: Potassium Chloride 20 MEQ TAB PO SCH (09:16)
[2020-06-08] MEDS: Polyethylene Glycol 3350 17 GM Packet PO SCH (09:16)
[2020-06-08] MEDS: Thiamine 100 MG TAB PO SCH (09:17)
[2020-06-08] MEDS: Aspirin 325 mg Enteric Coated Tablet PO SCH (09:17)
[2020-06-08] MEDS: Folic Acid 1 MG TAB PO SCH (09:17)
[2020-06-08] MEDS: Famotidine 20 MG TAB PO SCH ×2 (09:17→20:58)
[2020-06-08] MEDS: Multivitamin W/ Minerals 1 TAB PO SCH (09:17)
[2020-06-08] MEDS: Naproxen 500 MG TAB PO SCH ×2 (09:17→21:04)
[2020-06-08] MEDS: Magnesium Oxide 400 MG TAB PO SCH (09:17)
[2020-06-08] MEDS: Mometasone/Formoterol 60 PUFF AER INH SCH ×2 (09:18→21:00)
[2020-06-08] MEDS: Triamcinolone 0.1% Cream 15 GM TUBE TOP SCH ×2 (09:23→21:05)
[2020-06-08] MEDS: Enoxaparin Sodium 40 MG/0.4 ML SYRINGE SC SCH (20:59)
[2020-06-08] MEDS: Atorvastatin Calcium 40 MG TAB PO SCH (20:59)
[2020-06-09] MEDS: Furosemide 40 MG TAB PO SCH ×2 (05:55→13:03)
[2020-06-09] MEDS: Famotidine 20 MG TAB PO SCH ×2 (08:59→20:09)
[2020-06-09] MEDS: Polyethylene Glycol 3350 17 GM Packet PO SCH (09:00)
[2020-06-09] MEDS: Ferrous Sulfate 325 MG TAB PO SCH ×2 (09:00→17:25)
[2020-06-09] MEDS: Aspirin 325 mg Enteric Coated Tablet PO SCH (09:00)
[2020-06-09] MEDS: Folic Acid 1 MG TAB PO SCH (09:00)
[2020-06-09] MEDS: Naproxen 500 MG TAB PO SCH ×2 (09:00→20:05)
[2020-06-09] MEDS: Potassium Chloride 20 MEQ TAB PO SCH (09:00)
[2020-06-09] MEDS: Thiamine 100 MG TAB PO SCH (09:01)
[2020-06-09] MEDS: Magnesium Oxide 400 MG TAB PO SCH (09:01)
[2020-06-09] MEDS: Multivitamin W/ Minerals 1 TAB PO SCH (09:01)
[2020-06-09] MEDS: Mometasone/Formoterol 60 PUFF AER INH SCH (09:02)
[2020-06-09] MEDS: Triamcinolone 0.1% Cream 15 GM TUBE TOP SCH ×2 (09:07→20:12)
[2020-06-09] MEDS: Mometasone/Formoterol 200/5 60 PUFF INH SCH (20:02)
[2020-06-09] MEDS: Enoxaparin Sodium 40 MG/0.4 ML SYRINGE SC SCH (20:08)
[2020-06-09] MEDS: Atorvastatin Calcium 40 MG TAB PO SCH (20:09)
[2020-06-10] MEDS: Furosemide 40 MG TAB PO SCH ×2 (05:33→13:43)
[2020-06-10] MEDS: Thiamine 100 MG TAB PO SCH (08:22)
[2020-06-10] MEDS: Multivitamin W/ Minerals 1 TAB PO SCH (08:22)
[2020-06-10] MEDS: Naproxen 500 MG TAB PO SCH ×2 (08:22→20:59)
[2020-06-10] MEDS: Aspirin 325 mg Enteric Coated Tablet PO SCH (08:22)
[2020-06-10] MEDS: Magnesium Oxide 400 MG TAB PO SCH (08:22)
[2020-06-10] MEDS: Polyethylene Glycol 3350 17 GM Packet PO SCH (08:22)
[2020-06-10] MEDS: Potassium Chloride 20 MEQ TAB PO SCH (08:22)
[2020-06-10] MEDS: Ferrous Sulfate 325 MG TAB PO SCH ×2 (08:22→17:53)
[2020-06-10] MEDS: Famotidine 20 MG TAB PO SCH ×2 (08:22→20:59)
[2020-06-10] MEDS: Folic Acid 1 MG TAB PO SCH (08:22)
[2020-06-10] MEDS: Triamcinolone 0.1% Cream 15 GM TUBE TOP SCH ×2 (08:23→21:04)
[2020-06-10] MEDS: Mometasone/Formoterol 200/5 60 PUFF INH SCH ×2 (08:23→20:57)
[2020-06-10 15:32] VITALS: BMI 25.6
[2020-06-10] MEDS: Atorvastatin Calcium 40 MG TAB PO SCH (20:58)
[2020-06-10] MEDS: Enoxaparin Sodium 40 MG/0.4 ML SYRINGE SC SCH (20:59)
[2020-06-11] MEDS: Furosemide 40 MG TAB PO SCH ×2 (05:38→15:54)
[2020-06-11] MEDS: Multivitamin W/ Minerals 1 TAB PO SCH (08:04)
[2020-06-11] MEDS: Magnesium Oxide 400 MG TAB PO SCH (08:04)
[2020-06-11] MEDS: Polyethylene Glycol 3350 17 GM Packet PO SCH (08:04)
[2020-06-11] MEDS: Potassium Chloride 20 MEQ TAB PO SCH (08:04)
[2020-06-11] MEDS: Naproxen 500 MG TAB PO SCH ×2 (08:04→20:55)
[2020-06-11] MEDS: Aspirin 325 mg Enteric Coated Tablet PO SCH (08:04)
[2020-06-11] MEDS: Famotidine 20 MG TAB PO SCH ×2 (08:04→20:55)
[2020-06-11] MEDS: Folic Acid 1 MG TAB PO SCH (08:05)
[2020-06-11] MEDS: Ferrous Sulfate 325 MG TAB PO SCH ×2 (08:05→15:54)
[2020-06-11] MEDS: Mometasone/Formoterol 200/5 60 PUFF INH SCH ×2 (08:06→20:53)
[2020-06-11] MEDS: Thiamine 100 MG TAB PO SCH (09:00)
[2020-06-11] MEDS: Triamcinolone 0.1% Cream 15 GM TUBE TOP SCH ×2 (09:00→20:56)
[2020-06-11] MEDS: Enoxaparin Sodium 40 MG/0.4 ML SYRINGE SC SCH (20:54)
[2020-06-11] MEDS: Atorvastatin Calcium 40 MG TAB PO SCH (20:54)
[2020-06-12] MEDS: Furosemide 40 MG TAB PO SCH ×2 (05:47→14:48)
[2020-06-12] MEDS: Naproxen 500 MG TAB PO SCH ×2 (09:13→20:32)
[2020-06-12] MEDS: Famotidine 20 MG TAB PO SCH ×2 (09:13→20:23)
[2020-06-12] MEDS: Aspirin 325 mg Enteric Coated Tablet PO SCH (09:13)
[2020-06-12] MEDS: Ferrous Sulfate 325 MG TAB PO SCH ×2 (09:13→17:24)
[2020-06-12] MEDS: Potassium Chloride 20 MEQ TAB PO SCH (09:13)
[2020-06-12] MEDS: Folic Acid 1 MG TAB PO SCH (09:13)
[2020-06-12] MEDS: Polyethylene Glycol 3350 17 GM Packet PO SCH (09:14)
[2020-06-12] MEDS: Magnesium Oxide 400 MG TAB PO SCH (09:14)
[2020-06-12] MEDS: Multivitamin W/ Minerals 1 TAB PO SCH (09:14)
[2020-06-12] MEDS: Thiamine 100 MG TAB PO SCH (09:14)
[2020-06-12] MEDS: Triamcinolone 0.1% Cream 15 GM TUBE TOP SCH ×2 (09:14→21:02)
[2020-06-12] MEDS: Mometasone/Formoterol 200/5 60 PUFF INH SCH ×2 (09:19→20:25)
[2020-06-12] MEDS: Enoxaparin Sodium 40 MG/0.4 ML SYRINGE SC SCH (20:23)
[2020-06-12] MEDS: Atorvastatin Calcium 40 MG TAB PO SCH (20:24)
[2020-06-13] MEDS: Furosemide 40 MG TAB PO SCH ×2 (05:46→16:33)
[2020-06-13] MEDS: Magnesium Oxide 400 MG TAB PO SCH (09:21)
[2020-06-13] MEDS: Mometasone/Formoterol 200/5 60 PUFF INH SCH ×2 (09:21→21:19)
[2020-06-13] MEDS: Naproxen 500 MG TAB PO SCH ×2 (09:22→21:17)
[2020-06-13] MEDS: Aspirin 325 mg Enteric Coated Tablet PO SCH (09:22)
[2020-06-13] MEDS: Multivitamin W/ Minerals 1 TAB PO SCH (09:22)
[2020-06-13] MEDS: Potassium Chloride 20 MEQ TAB PO SCH (09:22)
[2020-06-13] MEDS: Folic Acid 1 MG TAB PO SCH (09:22)
[2020-06-13] MEDS: Ferrous Sulfate 325 MG TAB PO SCH ×2 (09:22→16:32)
[2020-06-13] MEDS: Famotidine 20 MG TAB PO SCH ×2 (09:23→21:18)
[2020-06-13] MEDS: Triamcinolone 0.1% Cream 15 GM TUBE TOP SCH ×2 (09:23→21:25)
[2020-06-13] MEDS: Thiamine 100 MG TAB PO SCH (09:23)
[2020-06-13] MEDS: Polyethylene Glycol 3350 17 GM Packet PO SCH (09:23)
[2020-06-13] MEDS: Enoxaparin Sodium 40 MG/0.4 ML SYRINGE SC SCH (21:16)
[2020-06-13] MEDS: Atorvastatin Calcium 40 MG TAB PO SCH (21:25)
[2020-06-14] MEDS: Furosemide 40 MG TAB PO SCH ×2 (05:21→15:04)
[2020-06-14] MEDS: Mometasone/Formoterol 200/5 60 PUFF INH SCH (09:48)
[2020-06-14] MEDS: Folic Acid 1 MG TAB PO SCH (09:50)
[2020-06-14] MEDS: Thiamine 100 MG TAB PO SCH (09:50)
[2020-06-14] MEDS: Triamcinolone 0.1% Cream 15 GM TUBE TOP SCH (09:50)
[2020-06-14] MEDS: Aspirin 325 mg Enteric Coated Tablet PO SCH (09:50)
[2020-06-14] MEDS: Famotidine 20 MG TAB PO SCH (09:50)
[2020-06-14] MEDS: Polyethylene Glycol 3350 17 GM Packet PO SCH (09:50)
[2020-06-14] MEDS: Ferrous Sulfate 325 MG TAB PO SCH ×2 (09:50→18:19)
[2020-06-14] MEDS: Potassium Chloride 20 MEQ TAB PO SCH (09:50)
[2020-06-14] MEDS: Magnesium Oxide 400 MG TAB PO SCH (09:50)
[2020-06-14] MEDS: Multivitamin W/ Minerals 1 TAB PO SCH (09:50)
[2020-06-14] MEDS: Naproxen 500 MG TAB PO SCH (09:51)
[2020-06-14 12:51] LABS: Anion Gap 16 mmol/L (10-20); BUN (Urea Nitrogen) 16 mg/dL (8.4-25.7); Calc. Creatinine Clearance 115 mL/min (70-130); Calcium 8.9 mg/dL (7.8-10.44); Carbon Dioxide 29 mmol/L (23-31); Chloride 95 mmol/L (98-107); Glucose 113 mg/dL (80-115); Potassium 4.3 mmol/L (3.5-5.1); Sodium 136 mmol/L (136-145)
[2020-06-14 17:44] VITALS: BP 108/58; TEMP 97.3
== END 2020-06-14 17:25 | disposition home or self-care (01) | DRG 280 ==
LOC: MADMS 18:04
PROVIDERS: ADMIT Family Medicine; ATTEND Family Medicine
DX: I11.0 Hypertensive heart disease with heart failure (principal); I21.4 Non-ST elevation (NSTEMI) myocardial infarction; I50.21 Acute systolic (congestive) heart failure; E87.1 Hypo-osmolality and hyponatremia; D62 Acute posthemorrhagic anemia; Z85.818 Personal history of malignant neoplasm of other sites of lip, oral cavity, and pharynx; Z87.891 Personal history of nicotine dependence; Z95.1 Presence of aortocoronary bypass graft; J44.9 Chronic obstructive pulmonary disease, unspecified; I25.5 Ischemic cardiomyopathy; F10.10 Alcohol abuse, uncomplicated; R26.81 Unsteadiness on feet; G89.29 Other chronic pain; M17.9 Osteoarthritis of knee, unspecified; R21 Rash and other nonspecific skin eruption; R53.81 Other malaise; K40.20 Bilateral inguinal hernia, without obstruction or gangrene, not specified as recurrent; I25.10 Atherosclerotic heart disease of native coronary artery without angina pectoris
CPT/HCPCS: 36415; 71046; 80048; 80053; 83880; 85025; 85027; 94640; 94664; J1650; J1940; J7611; J7620

== ENCOUNTER 2021-01-31 11:32 | Outpatient (CLI) | payer MEDICARE, MEDICAID ==
[2021-01-31 12:48] LABS: INR-International Normal Ratio 0.9; Prothrombin Time 12.7 sec (12.0-14.7)
[2021-01-31 12:50] LABS: PTT 31.5 sec (22.9-36.1)
[2021-01-31 12:57] LABS: ALT (SGPT) 18 U/L (8-55); AST (SGOT) 22 U/L (5-34); Albumin 3.4 g/dL (3.4-4.8); Alkaline Phosphatase 138 U/L (40-110); Anion Gap 14 mmol/L (10-20); BUN (Urea Nitrogen) 5 mg/dL (8.4-25.7); Bilirubin, Total 0.6 mg/dL (0.2-1.2); Calc. Creatinine Clearance 0 mL/min (70-130); Calcium 8.7 mg/dL (7.8-10.44); Carbon Dioxide 29 mmol/L (23-31); Chloride 89 mmol/L (98-107); Globulin 3.4 g/dL (2.4-3.5); Glucose 89 mg/dL (80-115); Potassium 4.5 mmol/L (3.5-5.1); Protein, Total 6.8 g/dL (5.8-8.1); Sodium 127 mmol/L (136-145)
[2021-01-31 13:14] LABS: #Basophils 0.1 thou/uL (0.0-0.2); #Eosinphils 0.1 thou/uL (0.0-0.7); #Lymphocytes 1.2 thou/uL (1.20-3.40); #Monocytes 0.5 thou/uL (0.11-0.59); #Neutrophils 5.9 thou/uL (1.40-6.50); %Basophils 1.2 % (0.0-1.0); %Eosinophils 0.8 % (0.0-10.0); %Lymphocytes 15.7 % (21.0-51.0); %Monocytes 6.5 % (0.0-10.0); %Neutrophils 75.8 % (42.0-75.0); Mean Corpuscular HGB CONC 32.6 g/dL (32.0-36.0); Mean Corpuscular Hemoglobin 30.4 pg (27.0-31.0); Mean Corpuscular Volume 93.2 fL (78.0-98.0); Mean Platelet Volume 7.6 fL (7.4-10.4); Platelet Count 305 thou/uL (130-400); RBC Distribution Width 10.9 % (11.5-14.5); White Blood Cell (WBC) Count 7.8 thou/uL (4.8-10.8)
[2021-02-01 14:28] LABS: SARS-CoV-2 PCR by NAA Not Detected (NotDetected)
== END 2021-01-31 11:33 | disposition home or self-care (01) ==
LOC: MADLAB 11:32
DX: Z01.818 Encounter for other preprocedural examination (principal); C15.3 Malignant neoplasm of upper third of esophagus; Z20.822 Contact with and (suspected) exposure to COVID-19
CPT/HCPCS: 36415; 71046; 80053; 85025; 85610; 85730; U0003; U0005

== ENCOUNTER 2021-02-12 09:42 | Outpatient (CLI) | payer MEDICARE, MEDICAID ==
[2021-02-12 10:09] LABS: Albumin 2.9 g/dL (3.4-4.8); Protein, Total 5.9 g/dL (5.8-8.1)
== END 2021-02-12 09:43 | disposition home or self-care (01) ==
LOC: MADLAB 09:42
PROVIDERS: ATTEND Surgery
DX: C15.3 Malignant neoplasm of upper third of esophagus (principal)
CPT/HCPCS: 36415; 82040; 84134; 84155

== ENCOUNTER 2021-02-13 21:13 | Emergency (ER) | payer MEDICARE, MEDICAID ==
[2021-02-13] MEDS ORDERED: Iopamidol 370 76% 125 ML VIAL FS ONE (21:14)
[2021-02-13] MEDS ORDERED: Ondansetron PF 4 MG/2 ML Vial ONE (21:19)
[2021-02-13 21:43] LABS: #Basophils 0.1 thou/uL (0.0-0.2); #Eosinphils 0.1 thou/uL (0.0-0.7); #Lymphocytes 0.8 thou/uL (1.20-3.40); #Monocytes 0.8 thou/uL (0.11-0.59); #Neutrophils 7.7 thou/uL (1.40-6.50); %Basophils 1.5 % (0.0-1.0); %Eosinophils 0.8 % (0.0-10.0); %Lymphocytes 8.6 % (21.0-51.0); %Monocytes 8.2 % (0.0-10.0); %Neutrophils 80.9 % (42.0-75.0); Hemoglobin 12.8 g/dL (14.0-18.0); INR-International Normal Ratio 0.9; Mean Corpuscular HGB CONC 33.3 g/dL (32.0-36.0); Mean Corpuscular Hemoglobin 30.6 pg (27.0-31.0); Mean Corpuscular Volume 92.1 fL (78.0-98.0); Mean Platelet Volume 7.2 fL (7.4-10.4); Platelet Count 306 thou/uL (130-400); Prothrombin Time 12.7 sec (12.0-14.7); RBC Distribution Width 10.9 % (11.5-14.5); Red Blood Cell (RBC) Count 4.19 mill/uL (4.70-6.10); White Blood Cell (WBC) Count 9.5 thou/uL (4.8-10.8)
[2021-02-13 21:57] LABS: ALT (SGPT) 30 U/L (8-55); AST (SGOT) 31 U/L (5-34); Acetaminophen Less than 6.0 mcg/mL (10.0-30.0); Albumin 3.7 g/dL (3.4-4.8); Alcohol Less than 10 mg/dL (Less than 10); Alkaline Phosphatase 105 U/L (40-110); Anion Gap 19 mmol/L (10-20); BUN (Urea Nitrogen) 8 mg/dL (8.4-25.7); Bilirubin, Total 0.7 mg/dL (0.2-1.2); CK (CPK) 49 U/L (30-200); Calc. Creatinine Clearance 0 mL/min (70-130); Calcium 8.7 mg/dL (7.8-10.44); Carbon Dioxide 27 mmol/L (23-31); Chloride 85 mmol/L (98-107); Globulin 3.4 g/dL (2.4-3.5); Glucose 127 mg/dL (80-115); Lipase 6 U/L (8-78); Magnesium 1.8 mg/dL (1.6-2.6); Potassium 3.4 mmol/L (3.5-5.1); Protein, Total 7.1 g/dL (5.8-8.1); Salicylate Less than 8.0 mg/dL (15.0-30.0); Sodium 128 mmol/L (136-145)
[2021-02-13 22:19] LABS: Base Excess-Venous 2.4 mmol/L (-2.0 to 3.0); Bicarbonate (HCO3v) 27.5 mmol/L (22.0-28.0); CO2 Tension (PvCO2) 43.6 mmHg (42.0-51.0); Calcium, Ionized 1.08 mmol/L (1.15-1.33); Chloride 84 mmol/L (98-107); Hemoglobin - Calc 13.2 g/dL (14.0-18.0); Potassium 3.3 mmol/L (3.5-5.1); Sodium 126 mmol/L (138-145); T. Carbon Dioxide 28.8 mmol/L (22.0-28.0); vO2 Saturation-calc 58.3 % (60.0-85.0)
[2021-02-13] MEDS ORDERED: Nitroglycerin 2% Ointment 1 INCH/1 GM Packet ONE (22:32)
[2021-02-13] MEDS ORDERED: Sodium Chloride 0.9% 1,000 ML ONE (22:32)
[2021-02-13] MEDS ORDERED: Cefepime 2 GM VIAL ONE (23:53)
[2021-02-13] MEDS ORDERED: Sodium Chloride 0.9% 250 ML 250 ML ONE (23:53)
[2021-02-13] MEDS ORDERED: Sodium Chloride 0.9% 100 ML ONE (23:53)
[2021-02-14] MEDS ORDERED: Ondansetron PF 4 MG/2 ML Vial ONE (01:10)
[2021-02-14 01:19] LABS: Amphetamine Not Detected (NotDetected); Barbiturates Screen Not Detected (NotDetected); Benzodiazepine Screen Not Detected (NotDetected); Cocaine Metabolite Screen Not Detected (NotDetected); Medtox Control Line Valid? VALID (VALID); Methadone Not Detected (NotDetected); Methamphetamine Not Detected (NotDetected); Opiate Screen Not Detected (NotDetected); Oxycodone Screen Not Detected (NotDetected); Phencyclidine (PCP) Not Detected (NotDetected); THC/Cannabinoid Screen Detected (NotDetected); Tricyclic Screen Not Detected (NotDetected)
[2021-02-14] MEDS ORDERED: Enoxaparin Sodium 80 MG/0.8 ML SYRINGE ONE (01:20)
[2021-02-14 01:48] LABS: SARS-CoV-2 NAA Rapid Test Not Detected (NotDetected)
== END 2021-02-14 02:11 | disposition short-term general hospital (02) ==
LOC: MADERS 21:13
DX: R07.9 Chest pain, unspecified (principal); J18.9 Pneumonia, unspecified organism; E87.1 Hypo-osmolality and hyponatremia; Z20.822 Contact with and (suspected) exposure to COVID-19; I25.10 Atherosclerotic heart disease of native coronary artery without angina pectoris; I25.2 Old myocardial infarction; J44.9 Chronic obstructive pulmonary disease, unspecified; Z87.891 Personal history of nicotine dependence
CPT/HCPCS: 71045; 71275; 74176; 80053; 80306; 80307; 82330; 82550; 82803; 83605; 83690; 83735; 83880; 84484; 85025; 85610; 86850; 86900; 86901; 87040; 87070; 87205; 93005; 96365; 96372; 96375; 96376; J0692; J1650; J2405; J3370; J3490; J7050; Q9967; U0002

== ENCOUNTER 2021-02-26 09:49 | Outpatient (CLI) | payer MEDICARE, MEDICAID ==
[2021-02-26 10:25] LABS: Albumin 3.3 g/dL (3.4-4.8); Protein, Total 6.9 g/dL (5.8-8.1)
== END 2021-02-26 09:50 | disposition home or self-care (01) ==
LOC: MADLAB 09:49
PROVIDERS: ATTEND Nurse Practitioner Family
DX: R77.0 Abnormality of albumin (principal)
CPT/HCPCS: 36415; 82040; 84134; 84155

== ENCOUNTER 2021-03-05 09:41 | Outpatient (CLI) | payer MEDICARE, MEDICAID ==
[2021-03-05 10:11] LABS: Albumin 3.5 g/dL (3.4-4.8); Protein, Total 6.7 g/dL (5.8-8.1)
== END 2021-03-05 09:42 | disposition home or self-care (01) ==
LOC: MADLAB 09:41
PROVIDERS: ATTEND Nurse Practitioner Family
DX: C15.3 Malignant neoplasm of upper third of esophagus (principal)
CPT/HCPCS: 36415; 82040; 84134; 84155

== ENCOUNTER 2021-05-14 15:28 | Inpatient (IN) | payer MEDICARE, MEDICAID ==
[2021-05-14 16:05] VITALS: BMI 21.1
[2021-05-14] MEDS ORDERED: Nystatin Cream 15 GM TUBE TOP PRN (16:47)
[2021-05-14] MEDS: Midodrine HCl 2.5 MG TAB PO SCH (17:51)
[2021-05-14] MEDS: Arformoterol 15 MCG/2 ML NEB NEB SCH (20:11)
[2021-05-14] MEDS: Artificial Tear Sol 15 ML BOT EA EYE SCH (20:11)
[2021-05-14] MEDS: Polyethylene Glycol 3350 17 GM Packet PO SCH (20:11)
[2021-05-14] MEDS: Budesonide 0.5 MG/2 ML NEB NEB SCH (20:12)
[2021-05-14] MEDS: Atorvastatin Calcium 40 MG TAB PO SCH (20:13)
[2021-05-14] MEDS: Gabapentin 400 MG CAP PO SCH (20:13)
[2021-05-15] MEDS: Levothyroxine Sodium 112 MCG TAB PO SCH (05:05)
[2021-05-15 05:28] LABS: #Basophils 0.1 thou/uL (0.0-0.2); #Eosinphils 0.3 thou/uL (0.0-0.7); #Lymphocytes 1.6 thou/uL (1.20-3.40); #Monocytes 0.5 thou/uL (0.11-0.59); %Basophils 1.5 % (0.0-1.0); %Eosinophils 6.3 % (0.0-10.0); %Lymphocytes 29.1 % (21.0-51.0); %Monocytes 9.1 % (0.0-10.0); %Neutrophils 54.1 % (42.0-75.0); Hemoglobin 9.9 g/dL (14.0-18.0); Mean Corpuscular HGB CONC 32.8 g/dL (32.0-36.0); Mean Corpuscular Hemoglobin 29.9 pg (27.0-31.0); Mean Corpuscular Volume 91.1 fL (78.0-98.0); Mean Platelet Volume 8.8 fL (7.4-10.4); Platelet Count 182 thou/uL (130-400); RBC Distribution Width 13.4 % (11.5-14.5); Red Blood Cell (RBC) Count 3.33 mill/uL (4.70-6.10); White Blood Cell (WBC) Count 5.6 thou/uL (4.8-10.8)
[2021-05-15 05:35] LABS: ALT (SGPT) 11 U/L (8-55); AST (SGOT) 14 U/L (5-34); Albumin 2.8 g/dL (3.4-4.8); Alkaline Phosphatase 103 U/L (40-110); Anion Gap 10 mmol/L (10-20); BUN (Urea Nitrogen) 13 mg/dL (8.4-25.7); Bilirubin, Total 0.2 mg/dL (0.2-1.2); Calc. Creatinine Clearance 114 mL/min (70-130); Calcium 8.5 mg/dL (7.8-10.44); Carbon Dioxide 29 mmol/L (23-31); Chloride 103 mmol/L (98-107); Glucose 92 mg/dL (80-115); Potassium 4.4 mmol/L (3.5-5.1); Protein, Total 5.8 g/dL (5.8-8.1); Sodium 138 mmol/L (136-145)
[2021-05-15] MEDS: Amiodarone 200 MG TAB PO SCH (08:44)
[2021-05-15] MEDS: Midodrine HCl 2.5 MG TAB PO SCH (08:44)
[2021-05-15] MEDS: Polyethylene Glycol 3350 17 GM Packet PO SCH ×2 (08:45→20:50)
[2021-05-15] MEDS: Arformoterol 15 MCG/2 ML NEB NEB SCH ×2 (08:45→20:49)
[2021-05-15] MEDS: Aspirin Chewable 81 MG TAB PO SCH (08:45)
[2021-05-15] MEDS: Gabapentin 400 MG CAP PO SCH ×3 (08:46→20:47)
[2021-05-15] MEDS: Folic Acid 1 MG TAB PO SCH (08:46)
[2021-05-15] MEDS: Sodium Chloride 1 GM TAB PO SCH (08:46)
[2021-05-15] MEDS: Budesonide 0.5 MG/2 ML NEB NEB SCH ×2 (08:46→20:49)
[2021-05-15] MEDS: Artificial Tear Sol 15 ML BOT EA EYE SCH ×2 (08:55→20:57)
[2021-05-15] MEDS ORDERED: Furosemide 40 MG TAB PO SCH (09:00)
[2021-05-15] MEDS ORDERED: Cholecalciferol 1,000 UNITS (25 MCG) TAB PO SCH (09:00)
[2021-05-15 11:59] LABS: SARS-CoV-2 PCR by NAA Not Detected (NotDetected)
[2021-05-15] MEDS: Midodrine HCl 2.5 MG TAB PO PRN (20:47)
[2021-05-15] MEDS: Atorvastatin Calcium 40 MG TAB PO SCH (20:48)
[2021-05-16] MEDS: Levothyroxine Sodium 112 MCG TAB PO SCH (06:05)
[2021-05-16] MEDS: Arformoterol 15 MCG/2 ML NEB NEB SCH ×2 (07:43→20:55)
[2021-05-16] MEDS: Budesonide 0.5 MG/2 ML NEB NEB SCH ×2 (07:52→20:55)
[2021-05-16] MEDS: Polyethylene Glycol 3350 17 GM Packet PO SCH ×2 (08:27→20:55)
[2021-05-16] MEDS: Amiodarone 200 MG TAB PO SCH (08:33)
[2021-05-16] MEDS: Furosemide 20 MG TAB PO SCH (08:33)
[2021-05-16] MEDS: Sodium Chloride 1 GM TAB PO SCH (08:33)
[2021-05-16] MEDS: Gabapentin 400 MG CAP PO SCH ×3 (08:33→20:56)
[2021-05-16] MEDS: Aspirin Chewable 81 MG TAB PO SCH (08:33)
[2021-05-16] MEDS: Folic Acid 1 MG TAB PO SCH (08:34)
[2021-05-16] MEDS: Cholecalciferol (Vitamin D3) 5,000 UNITS CAPSULE PO SCH (08:34)
[2021-05-16] MEDS: Artificial Tear Sol 15 ML BOT EA EYE SCH ×2 (08:47→20:57)
[2021-05-16] MEDS ORDERED: Acetaminophen 325 MG TAB PO PRN (17:27)
[2021-05-16] MEDS: traMADol HCl 50 MG TAB PO PRN (17:36)
[2021-05-16] MEDS: Atorvastatin Calcium 40 MG TAB PO SCH (20:56)
[2021-05-16] MEDS: Midodrine HCl 2.5 MG TAB PO PRN (20:57)
[2021-05-17] MEDS: Levothyroxine Sodium 112 MCG TAB PO SCH (05:49)
[2021-05-17] MEDS: Budesonide 0.5 MG/2 ML NEB NEB SCH ×2 (08:04→21:33)
[2021-05-17] MEDS: Arformoterol 15 MCG/2 ML NEB NEB SCH ×2 (08:05→21:33)
[2021-05-17] MEDS: Cholecalciferol (Vitamin D3) 5,000 UNITS CAPSULE PO SCH (08:07)
[2021-05-17] MEDS: Gabapentin 400 MG CAP PO SCH ×3 (08:07→21:33)
[2021-05-17] MEDS: Furosemide 20 MG TAB PO SCH (08:07)
[2021-05-17] MEDS: Amiodarone 200 MG TAB PO SCH (08:07)
[2021-05-17] MEDS: Polyethylene Glycol 3350 17 GM Packet PO SCH ×2 (08:07→21:34)
[2021-05-17] MEDS: Sodium Chloride 1 GM TAB PO SCH (08:08)
[2021-05-17] MEDS: Aspirin Chewable 81 MG TAB PO SCH (08:08)
[2021-05-17] MEDS: Folic Acid 1 MG TAB PO SCH (08:08)
[2021-05-17] MEDS: Artificial Tear Sol 15 ML BOT EA EYE SCH ×2 (08:16→21:34)
[2021-05-17] MEDS: Atorvastatin Calcium 40 MG TAB PO SCH (21:32)
[2021-05-18] MEDS: Levothyroxine Sodium 112 MCG TAB PO SCH (06:00)
[2021-05-18] MEDS: Budesonide 0.5 MG/2 ML NEB NEB SCH ×2 (08:01→21:18)
[2021-05-18] MEDS: Gabapentin 400 MG CAP PO SCH ×3 (08:01→21:18)
[2021-05-18] MEDS: Polyethylene Glycol 3350 17 GM Packet PO SCH ×2 (08:01→21:18)
[2021-05-18] MEDS: Arformoterol 15 MCG/2 ML NEB NEB SCH ×2 (08:01→21:18)
[2021-05-18] MEDS: Sodium Chloride 1 GM TAB PO SCH (08:01)
[2021-05-18] MEDS: Aspirin Chewable 81 MG TAB PO SCH (08:02)
[2021-05-18] MEDS: Furosemide 20 MG TAB PO SCH (08:02)
[2021-05-18] MEDS: Folic Acid 1 MG TAB PO SCH (08:02)
[2021-05-18] MEDS: Cholecalciferol (Vitamin D3) 5,000 UNITS CAPSULE PO SCH (08:02)
[2021-05-18] MEDS: Amiodarone 200 MG TAB PO SCH (08:02)
[2021-05-18] MEDS: Artificial Tear Sol 15 ML BOT EA EYE SCH ×2 (08:12→21:21)
[2021-05-18] MEDS: Atorvastatin Calcium 40 MG TAB PO SCH (21:18)
[2021-05-19] MEDS: Levothyroxine Sodium 112 MCG TAB PO SCH (05:36)
[2021-05-19] MEDS: traMADol HCl 50 MG TAB PO PRN (08:39)
[2021-05-19] MEDS: Gabapentin 400 MG CAP PO SCH ×4 (08:40→20:17)
[2021-05-19] MEDS: Furosemide 20 MG TAB PO SCH (08:40)
[2021-05-19] MEDS: Aspirin Chewable 81 MG TAB PO SCH (08:41)
[2021-05-19] MEDS: Cholecalciferol (Vitamin D3) 5,000 UNITS CAPSULE PO SCH (08:41)
[2021-05-19] MEDS: Folic Acid 1 MG TAB PO SCH (08:41)
[2021-05-19] MEDS: Amiodarone 200 MG TAB PO SCH (08:41)
[2021-05-19] MEDS: Sodium Chloride 1 GM TAB PO SCH (08:41)
[2021-05-19] MEDS: Polyethylene Glycol 3350 17 GM Packet PO SCH ×2 (08:43→20:16)
[2021-05-19] MEDS: Arformoterol 15 MCG/2 ML NEB NEB SCH ×2 (08:43→20:16)
[2021-05-19] MEDS: Budesonide 0.5 MG/2 ML NEB NEB SCH ×2 (08:43→20:16)
[2021-05-19] MEDS: Artificial Tear Sol 15 ML BOT EA EYE SCH ×2 (14:28→20:17)
[2021-05-19] MEDS: Atorvastatin Calcium 40 MG TAB PO SCH (20:17)
[2021-05-20] MEDS: Levothyroxine Sodium 112 MCG TAB PO SCH (05:23)
[2021-05-20] MEDS: Polyethylene Glycol 3350 17 GM Packet PO SCH ×2 (09:05→20:57)
[2021-05-20] MEDS: Gabapentin 400 MG CAP PO SCH ×3 (09:05→20:56)
[2021-05-20] MEDS: Furosemide 20 MG TAB PO SCH (09:05)
[2021-05-20] MEDS: Folic Acid 1 MG TAB PO SCH (09:05)
[2021-05-20] MEDS: Amiodarone 200 MG TAB PO SCH (09:05)
[2021-05-20] MEDS: Cholecalciferol (Vitamin D3) 5,000 UNITS CAPSULE PO SCH (09:05)
[2021-05-20] MEDS: Sodium Chloride 1 GM TAB PO SCH (09:05)
[2021-05-20] MEDS: Aspirin Chewable 81 MG TAB PO SCH (09:05)
[2021-05-20] MEDS: Artificial Tear Sol 15 ML BOT EA EYE SCH ×2 (09:06→21:18)
[2021-05-20] MEDS: Arformoterol 15 MCG/2 ML NEB NEB SCH ×2 (09:06→20:56)
[2021-05-20] MEDS: Budesonide 0.5 MG/2 ML NEB NEB SCH ×2 (09:06→20:56)
[2021-05-20] MEDS: Midodrine HCl 2.5 MG TAB PO PRN ×2 (12:15→20:56)
[2021-05-20] MEDS: Atorvastatin Calcium 40 MG TAB PO SCH (20:56)
[2021-05-21] MEDS: Levothyroxine Sodium 112 MCG TAB PO SCH (05:16)
[2021-05-21] MEDS: Cholecalciferol (Vitamin D3) 5,000 UNITS CAPSULE PO SCH (07:59)
[2021-05-21] MEDS: Sodium Chloride 1 GM TAB PO SCH (07:59)
[2021-05-21] MEDS: Aspirin Chewable 81 MG TAB PO SCH (07:59)
[2021-05-21] MEDS: Amiodarone 200 MG TAB PO SCH (07:59)
[2021-05-21] MEDS: Furosemide 20 MG TAB PO SCH (07:59)
[2021-05-21] MEDS: Folic Acid 1 MG TAB PO SCH (07:59)
[2021-05-21] MEDS: Gabapentin 400 MG CAP PO SCH ×3 (07:59→21:02)
[2021-05-21] MEDS: Artificial Tear Sol 15 ML BOT EA EYE SCH ×2 (08:00→21:08)
[2021-05-21] MEDS: Arformoterol 15 MCG/2 ML NEB NEB SCH ×2 (08:00→21:08)
[2021-05-21] MEDS: Budesonide 0.5 MG/2 ML NEB NEB SCH ×2 (08:00→21:01)
[2021-05-21] MEDS: Polyethylene Glycol 3350 17 GM Packet PO SCH ×2 (08:02→21:02)
[2021-05-21] MEDS: Midodrine HCl 2.5 MG TAB PO PRN (11:58)
[2021-05-21] MEDS: Atorvastatin Calcium 40 MG TAB PO SCH (21:02)
[2021-05-22] MEDS: Levothyroxine Sodium 112 MCG TAB PO SCH (05:29)
[2021-05-22 07:32] VITALS: BP 109/70; TEMP 98.7
[2021-05-22] MEDS: Arformoterol 15 MCG/2 ML NEB NEB SCH (07:43)
[2021-05-22] MEDS: Amiodarone 200 MG TAB PO SCH (07:44)
[2021-05-22] MEDS: Budesonide 0.5 MG/2 ML NEB NEB SCH (07:44)
[2021-05-22] MEDS: Furosemide 20 MG TAB PO SCH (07:44)
[2021-05-22] MEDS: Gabapentin 400 MG CAP PO SCH (07:45)
[2021-05-22] MEDS: Aspirin Chewable 81 MG TAB PO SCH (07:45)
[2021-05-22] MEDS: Sodium Chloride 1 GM TAB PO SCH (07:46)
[2021-05-22] MEDS: Cholecalciferol (Vitamin D3) 5,000 UNITS CAPSULE PO SCH (07:46)
[2021-05-22] MEDS: Folic Acid 1 MG TAB PO SCH (07:46)
[2021-05-22] MEDS: Artificial Tear Sol 15 ML BOT EA EYE SCH (07:47)
[2021-05-22] MEDS: Polyethylene Glycol 3350 17 GM Packet PO SCH (07:48)
== END 2021-05-22 08:45 | disposition home or self-care (01) | DRG 948 ==
LOC: MADMS 15:28
PROVIDERS: ADMIT Family Medicine; ATTEND Family Medicine
DX: R53.81 Other malaise (principal); R26.81 Unsteadiness on feet; I25.10 Atherosclerotic heart disease of native coronary artery without angina pectoris; I50.9 Heart failure, unspecified; J44.9 Chronic obstructive pulmonary disease, unspecified; I48.91 Unspecified atrial fibrillation; E11.51 Type 2 diabetes mellitus with diabetic peripheral angiopathy without gangrene; I25.5 Ischemic cardiomyopathy; F17.210 Nicotine dependence, cigarettes, uncomplicated; E03.9 Hypothyroidism, unspecified; L89.152 Pressure ulcer of sacral region, stage 2; D64.9 Anemia, unspecified; I11.0 Hypertensive heart disease with heart failure; M17.12 Unilateral primary osteoarthritis, left knee; Z20.822 Contact with and (suspected) exposure to COVID-19; Z88.8 Allergy status to other drugs, medicaments and biological substances; Z79.899 Other long term (current) drug therapy; Z95.1 Presence of aortocoronary bypass graft; Z79.82 Long term (current) use of aspirin
CPT/HCPCS: 80053; 85025; 94640; J7626; U0003; U0005

== ENCOUNTER 2021-11-27 08:55 | Outpatient (CLI) | payer MEDICARE, MEDICAID ==
[2021-11-27 09:03] LABS: #Basophils 0.1 thou/uL (0.0-0.2); #Eosinphils 0.3 thou/uL (0.0-0.7); #Lymphocytes 1.7 thou/uL (1.20-3.40); #Monocytes 0.4 thou/uL (0.11-0.59); #Neutrophils 3.3 thou/uL (1.40-6.50); %Basophils 1.3 % (0.0-1.0); %Eosinophils 4.6 % (0.0-10.0); %Lymphocytes 28.7 % (21.0-51.0); %Monocytes 7.4 % (0.0-10.0); %Neutrophils 58.1 % (42.0-75.0); Hemoglobin 11.3 g/dL (14.0-18.0); Mean Corpuscular HGB CONC 31.2 g/dL (32.0-36.0); Mean Corpuscular Hemoglobin 30.9 pg (27.0-31.0); Mean Corpuscular Volume 99.2 fL (78.0-98.0); Mean Platelet Volume 8.7 fL (7.4-10.4); Platelet Count 228 thou/uL (130-400); Red Blood Cell (RBC) Count 3.64 mill/uL (4.70-6.10); White Blood Cell (WBC) Count 5.7 thou/uL (4.8-10.8)
[2021-11-27 10:00] LABS: ALT (SGPT) 13 U/L (8-55); AST (SGOT) 27 U/L (5-34); Albumin 3.3 g/dL (3.4-4.8); Alkaline Phosphatase 116 U/L (40-110); Anion Gap 12 mmol/L (10-20); BUN (Urea Nitrogen) 12 mg/dL (8.4-25.7); Bilirubin, Total 0.5 mg/dL (0.2-1.2); Calc. Creatinine Clearance 0 mL/min (70-130); Calcium 8.6 mg/dL (7.8-10.44); Carbon Dioxide 28 mmol/L (23-31); Chloride 96 mmol/L (98-107); Estimated GFR 99; Globulin 3.7 g/dL (2.4-3.5); Glucose 91 mg/dL (80-115); Potassium 3.9 mmol/L (3.5-5.1); Sodium 132 mmol/L (136-145)
== END 2021-11-27 08:56 | disposition home or self-care (01) ==
LOC: MADLABBHPM 08:55 → MADLAB 08:56
PROVIDERS: ATTEND Family Medicine
DX: I11.0 Hypertensive heart disease with heart failure (principal); I50.9 Heart failure, unspecified; D62 Acute posthemorrhagic anemia
CPT/HCPCS: 80053; 84443; 85025

== ENCOUNTER 2022-05-04 11:56 | Emergency (ER) | payer MEDICARE, OTHER ==
[~2022-05-04 11:56] MED LIST: Iopamidol 370 76% 125 ML VIAL FS ONE
[2022-05-04 12:19] LABS: #Monocytes 0.3 thou/uL (0.11-0.59); #Neutrophils 9.3 thou/uL (1.40-6.50); %Basophils 0.2 % (0.0-1.0); %Eosinophils 0.2 % (0.0-10.0); %Lymphocytes 9.1 % (21.0-51.0); %Monocytes 3.1 % (0.0-10.0); %Neutrophils 87.3 % (42.0-75.0); Hemoglobin 13.1 g/dL (14.0-18.0); Mean Corpuscular HGB CONC 32.6 g/dL (32.0-36.0); Mean Corpuscular Hemoglobin 28.7 pg (27.0-31.0); Mean Corpuscular Volume 87.9 fl (78.0-98.0); Mean Platelet Volume 7.3 fL (7.4-10.4); Platelet Count 326 10x3/uL (130-400); RBC Distribution Width 12.3 % (11.5-14.5); Red Blood Cell (RBC) Count 4.56 mill/uL (4.70-6.10); White Blood Cell (WBC) Count 10.6 10x3/uL (4.8-10.8)
[2022-05-04] MEDS ORDERED: Sodium Chloride 0.9% 100 ML ONE (12:27)
[2022-05-04] MEDS ORDERED: Aspirin Chewable 81 MG TAB ONE (12:27)
[2022-05-04] MEDS ORDERED: Sodium Chloride 0.9% 250 ML 250 ML ONE (12:27)
[2022-05-04] MEDS ORDERED: cefTRIAXone\\ROCEPHIN 2 GM VIAL ONE (12:27)
[2022-05-04] MEDS ORDERED: Azithromycin 500 MG VIAL ONE (12:27)
[2022-05-04] MEDS ORDERED: Sodium Chloride 0.9% 1,000 ML ONE (12:27)
[2022-05-04] MEDS ORDERED: Ipratropium/Albuterol 3 ML NEB ONE (12:27)
[2022-05-04 12:38] LABS: ALT (SGPT) 9 U/L (8-55); AST (SGOT) 14 U/L (5-34); Albumin 2.5 g/dL (3.4-4.8); Alkaline Phosphatase 75 U/L (40-110); Anion Gap 17 mmol/L (10-20); BUN (Urea Nitrogen) 17 mg/dL (8.4-25.7); Bilirubin, Total 0.4 mg/dL (0.2-1.2); Calc. Creatinine Clearance 0 mL/min (70-130); Calcium 8.1 mg/dL (7.8-10.44); Carbon Dioxide 24 mmol/L (23-31); Chloride 97 mmol/L (98-107); Estimated GFR 102; Globulin 4.2 g/dL (2.4-3.5); Glucose 90 mg/dL (80-115); Magnesium 1.9 mg/dL (1.6-2.6); Potassium 4.1 mmol/L (3.5-5.1); Protein, Total 6.7 g/dL (5.8-8.1); Sodium 134 mmol/L (136-145)
[2022-05-04 12:39] LABS: Prothrombin Time 13.6 sec (12.0-14.7)
[2022-05-04 12:40] LABS: PTT 32.9 sec (22.9-36.1)
[2022-05-04] MEDS ORDERED: Sodium Chloride 0.9% 100 ML BAG ONE (12:43)
[2022-05-04 12:44] LABS: Base Excess-Venous 2.1 mmol/L (-2.0 to 3.0); Bicarbonate (HCO3v) 25.6 mmol/L (22.0-28.0); CO2 Tension (PvCO2) 35.9 mmHg (42.0-51.0); Chloride 98 mmol/L (98-107); Hemoglobin - Calc 14.8 g/dL (14.0-18.0); Sodium 135 mmol/L (138-145); T. Carbon Dioxide 26.7 mmol/L (22.0-28.0); vO2 Saturation-calc 99.9 % (60.0-85.0)
[2022-05-04 12:57] LABS: Lipase Less than 5 U/L (8-78)
[2022-05-04 13:16] LABS: SARS-CoV-2 NAA Rapid Test Not Detected (NotDetected)
[2022-05-04] MEDS ORDERED: methylPREDNISolone Sod Succ/PF 125 MG/2 ML VIAL ONE (13:57)
[2022-05-04 15:30] LABS: Troponin I 0.011 ng/mL (< 0.028)
== END 2022-05-04 19:07 | disposition short-term general hospital (02) ==
LOC: MADERS 11:56
DX: J18.9 Pneumonia, unspecified organism (principal); J44.9 Chronic obstructive pulmonary disease, unspecified; R09.02 Hypoxemia; R94.6 Abnormal results of thyroid function studies; I25.10 Atherosclerotic heart disease of native coronary artery without angina pectoris; Z87.891 Personal history of nicotine dependence; Z20.822 Contact with and (suspected) exposure to COVID-19
CPT/HCPCS: 36415; 71045; 71275; 74177; 80053; 82330; 82803; 83605; 83690; 83735; 83880; 84439; 84443; 84484; 85014; 85025; 85610; 85730; 87040; 87070; 87077; 87186; 87205; 93005; 94760; 96361; 96365; 96375; J0696; J2930; J3490; J7050; J7620; Q9967

== ENCOUNTER 2022-05-13 19:00 | Inpatient (IN) | payer MEDICARE, MEDICAID ==
[2022-05-13] MEDS ORDERED: Acetaminophen 325 MG TAB PO PRN (21:25)
[2022-05-13] MEDS ORDERED: Famotidine 20 MG TAB PO SCH (21:30)
[2022-05-14] MEDS: Ipratropium/Albuterol 3 ML NEB NEB SCH ×4 (00:19→17:32)
[2022-05-14] MEDS: HYDROcodone/Acetaminophen 5/325 mg Tablet PO PRN (03:44)
[2022-05-14 05:29] LABS: Anion Gap 9 mmol/L (10-20); BUN (Urea Nitrogen) 15 mg/dL (8.4-25.7); Calc. Creatinine Clearance 106 mL/min (70-130); Calcium 7.2 mg/dL (7.8-10.44); Carbon Dioxide 30 mmol/L (23-31); Chloride 102 mmol/L (98-107); Estimated GFR 105; Glucose 70 mg/dL (80-115); Potassium 2.8 mmol/L (3.5-5.1); Sodium 138 mmol/L (136-145)
[2022-05-14] MEDS: Levothyroxine Sodium 112 MCG TAB PO SCH (06:10)
[2022-05-14] MEDS: Doxycycline 100 MG CAP PO SCH ×2 (09:08→22:00)
[2022-05-14] MEDS: Famotidine 20 MG TAB PO SCH ×2 (09:08→22:01)
[2022-05-14] MEDS ORDERED: Potassium Chloride 20 MEQ TAB PO SCH (12:45)
[2022-05-14] MEDS: Potassium Chloride 20 MEQ TAB PO SCH (17:32)
[2022-05-14] MEDS ORDERED: FLU VACC QS2022-23(65YR UP)/PF 240 MCG/0.7 ML SYRINGE IM ONE (23:45)
[2022-05-15] MEDS: Ipratropium/Albuterol 3 ML NEB NEB SCH ×5 (00:11→23:14)
[2022-05-15] MEDS: HYDROcodone/Acetaminophen 5/325 mg Tablet PO PRN ×3 (00:14→19:12)
[2022-05-15] MEDS: Levothyroxine Sodium 112 MCG TAB PO SCH (05:21)
[2022-05-15 05:23] LABS: Hemoglobin 10.5 g/dL (14.0-18.0); Platelet Count 240 10x3/uL (130-400)
[2022-05-15] MEDS: Famotidine 20 MG TAB PO SCH ×2 (08:21→20:57)
[2022-05-15] MEDS: Potassium Chloride 20 MEQ TAB PO SCH ×2 (08:21→17:18)
[2022-05-15] MEDS: Doxycycline 100 MG CAP PO SCH ×2 (08:21→20:58)
[2022-05-15] MEDS: Lantiseptic Ointment 130 GM JAR TOP SCH (09:21)
[2022-05-16] MEDS: Ipratropium/Albuterol 3 ML NEB NEB SCH ×4 (06:22→23:07)
[2022-05-16] MEDS: Levothyroxine Sodium 112 MCG TAB PO SCH (06:22)
[2022-05-16] MEDS: Famotidine 20 MG TAB PO SCH ×2 (09:02→20:27)
[2022-05-16] MEDS: Potassium Chloride 20 MEQ TAB PO SCH ×2 (09:02→17:39)
[2022-05-16] MEDS: Doxycycline 100 MG CAP PO SCH ×2 (09:03→20:27)
[2022-05-16] MEDS: Lantiseptic Ointment 130 GM JAR TOP SCH (09:03)
[2022-05-16] MEDS: HYDROcodone/Acetaminophen 5/325 mg Tablet PO PRN (09:08)
[2022-05-17] MEDS: Levothyroxine Sodium 112 MCG TAB PO SCH (05:49)
[2022-05-17] MEDS: Ipratropium/Albuterol 3 ML NEB NEB SCH ×4 (05:50→23:17)
[2022-05-17] MEDS: HYDROcodone/Acetaminophen 5/325 mg Tablet PO PRN ×2 (08:38→12:43)
[2022-05-17] MEDS: Famotidine 20 MG TAB PO SCH ×2 (08:39→21:34)
[2022-05-17] MEDS: Potassium Chloride 20 MEQ TAB PO SCH ×2 (08:39→17:19)
[2022-05-17] MEDS: Doxycycline 100 MG CAP PO SCH ×2 (08:39→21:32)
[2022-05-17] MEDS: Lantiseptic Ointment 130 GM JAR TOP SCH (08:40)
[2022-05-17] MEDS ORDERED: Furosemide 20 MG TAB PO SCH (15:00)
[2022-05-18] MEDS: Levothyroxine Sodium 112 MCG TAB PO SCH (05:32)
[2022-05-18] MEDS: Ipratropium/Albuterol 3 ML NEB NEB SCH ×4 (05:32→23:23)
[2022-05-18] MEDS: Potassium Chloride 20 MEQ TAB PO SCH ×2 (08:43→17:41)
[2022-05-18] MEDS: HYDROcodone/Acetaminophen 5/325 mg Tablet PO PRN ×2 (08:43→23:22)
[2022-05-18] MEDS: Doxycycline 100 MG CAP PO SCH ×2 (08:43→21:28)
[2022-05-18] MEDS: Famotidine 20 MG TAB PO SCH ×2 (08:43→21:28)
[2022-05-18] MEDS: Lantiseptic Ointment 130 GM JAR TOP SCH (08:44)
[2022-05-18] MEDS ORDERED: Meloxicam 7.5 MG TAB PO SCH (13:15)
[2022-05-18] MEDS ORDERED: Furosemide 20 MG TAB PO SCH (13:15)
[2022-05-18 13:37] LABS: Anion Gap 10 mmol/L (10-20); BUN (Urea Nitrogen) 12 mg/dL (8.4-25.7); Calc. Creatinine Clearance 112 mL/min (70-130); Calcium 7.5 mg/dL (7.8-10.44); Carbon Dioxide 29 mmol/L (23-31); Chloride 99 mmol/L (98-107); Estimated GFR 107; Glucose 86 mg/dL (80-115); Potassium 4.5 mmol/L (3.5-5.1); Sodium 133 mmol/L (136-145)
[2022-05-19] MEDS: Acetaminophen ER (8hr) 650 MG TAB PO SCH (05:59)
[2022-05-19] MEDS: Ipratropium/Albuterol 3 ML NEB NEB SCH ×4 (06:00→23:16)
[2022-05-19] MEDS: Levothyroxine Sodium 112 MCG TAB PO SCH (06:00)
[2022-05-19] MEDS: Furosemide 20 MG TAB PO SCH (09:56)
[2022-05-19] MEDS: Potassium Chloride 20 MEQ TAB PO SCH ×2 (09:56→17:13)
[2022-05-19] MEDS: Lantiseptic Ointment 130 GM JAR TOP SCH (09:57)
[2022-05-19] MEDS: Meloxicam 7.5 MG TAB PO SCH (09:57)
[2022-05-19] MEDS: Famotidine 20 MG TAB PO SCH ×2 (09:58→20:01)
[2022-05-19] MEDS: HYDROcodone/Acetaminophen 5/325 mg Tablet PO PRN (15:38)
[2022-05-20] MEDS: Acetaminophen ER (8hr) 650 MG TAB PO SCH (05:18)
[2022-05-20] MEDS: Levothyroxine Sodium 112 MCG TAB PO SCH (05:18)
[2022-05-20] MEDS: Ipratropium/Albuterol 3 ML NEB NEB SCH ×4 (05:19→21:57)
[2022-05-20] MEDS: Furosemide 20 MG TAB PO SCH (08:28)
[2022-05-20] MEDS: Famotidine 20 MG TAB PO SCH ×2 (08:28→21:50)
[2022-05-20] MEDS: Potassium Chloride 20 MEQ TAB PO SCH ×2 (08:28→17:03)
[2022-05-20] MEDS: Meloxicam 7.5 MG TAB PO SCH (08:29)
[2022-05-20] MEDS: Lantiseptic Ointment 130 GM JAR TOP SCH (08:30)
[2022-05-20] MEDS: HYDROcodone/Acetaminophen 5/325 mg Tablet PO PRN (15:25)
[2022-05-21] MEDS: Acetaminophen ER (8hr) 650 MG TAB PO SCH (05:04)
[2022-05-21] MEDS: Levothyroxine Sodium 112 MCG TAB PO SCH (05:05)
[2022-05-21] MEDS: Ipratropium/Albuterol 3 ML NEB NEB SCH ×3 (05:05→17:12)
[2022-05-21] MEDS: Famotidine 20 MG TAB PO SCH ×2 (08:17→21:24)
[2022-05-21] MEDS: Furosemide 20 MG TAB PO SCH (08:17)
[2022-05-21] MEDS: Meloxicam 7.5 MG TAB PO SCH (08:17)
[2022-05-21] MEDS: Potassium Chloride 20 MEQ TAB PO SCH ×2 (08:17→17:12)
[2022-05-21] MEDS: Lantiseptic Ointment 130 GM JAR TOP SCH (10:37)
[2022-05-21] MEDS ORDERED: Triamcinolone 0.1% Cream 15 GM TUBE TOP PRN (17:57)
[2022-05-21] MEDS: hydrOXYzine 25 MG TAB PO PRN (21:25)
[2022-05-22] MEDS: Ipratropium/Albuterol 3 ML NEB NEB SCH ×4 (00:20→17:32)
[2022-05-22] MEDS: Acetaminophen ER (8hr) 650 MG TAB PO SCH (05:45)
[2022-05-22] MEDS: Levothyroxine Sodium 112 MCG TAB PO SCH (05:45)
[2022-05-22] MEDS ORDERED: Lantiseptic Ointment 130 GM JAR TOP PRN (06:03)
[2022-05-22] MEDS: Potassium Chloride 20 MEQ TAB PO SCH (08:14)
[2022-05-22] MEDS: Furosemide 20 MG TAB PO SCH (08:14)
[2022-05-22] MEDS: Famotidine 20 MG TAB PO SCH ×2 (08:15→21:50)
[2022-05-22] MEDS: Meloxicam 7.5 MG TAB PO SCH (08:15)
[2022-05-22] MEDS: hydrOXYzine 25 MG TAB PO PRN ×2 (08:25→22:09)
[2022-05-22] MEDS: Lantiseptic Ointment 130 GM JAR TOP SCH ×2 (08:26→21:44)
[2022-05-22] MEDS: HYDROcodone/Acetaminophen 5/325 mg Tablet PO PRN (21:44)
[2022-05-23] MEDS: Ipratropium/Albuterol 3 ML NEB NEB SCH ×4 (00:47→17:36)
[2022-05-23] MEDS: Acetaminophen ER (8hr) 650 MG TAB PO SCH (06:00)
[2022-05-23] MEDS: Levothyroxine Sodium 112 MCG TAB PO SCH (06:00)
[2022-05-23] MEDS: Potassium Chloride 20 MEQ TAB PO SCH (09:06)
[2022-05-23] MEDS: Famotidine 20 MG TAB PO SCH ×2 (09:06→21:18)
[2022-05-23] MEDS: Furosemide 20 MG TAB PO SCH (09:06)
[2022-05-23] MEDS: Meloxicam 7.5 MG TAB PO SCH (09:06)
[2022-05-23] MEDS: Lantiseptic Ointment 130 GM JAR TOP SCH ×2 (09:08→21:19)
[2022-05-23] MEDS: hydrOXYzine 25 MG TAB PO PRN (21:18)
[2022-05-24] MEDS: Ipratropium/Albuterol 3 ML NEB NEB SCH ×5 (00:17→23:04)
[2022-05-24] MEDS: Acetaminophen ER (8hr) 650 MG TAB PO SCH (05:48)
[2022-05-24] MEDS: Levothyroxine Sodium 112 MCG TAB PO SCH (05:48)
[2022-05-24] MEDS: Furosemide 20 MG TAB PO SCH (09:01)
[2022-05-24] MEDS: Potassium Chloride 20 MEQ TAB PO SCH (09:01)
[2022-05-24] MEDS: Meloxicam 7.5 MG TAB PO SCH (09:01)
[2022-05-24] MEDS: Famotidine 20 MG TAB PO SCH ×2 (09:01→21:26)
[2022-05-24] MEDS: Silver Sulfadiazine 50 GM JAR TP SCH (09:03)
[2022-05-24] MEDS: Lantiseptic Ointment 130 GM JAR TOP SCH ×2 (09:05→21:36)
[2022-05-24] MEDS: HYDROcodone/Acetaminophen 5/325 mg Tablet PO PRN ×2 (12:24→21:26)
[2022-05-24] MEDS: hydrOXYzine 25 MG TAB PO PRN (21:30)
[2022-05-25] MEDS: Levothyroxine Sodium 112 MCG TAB PO SCH (05:00)
[2022-05-25] MEDS: Ipratropium/Albuterol 3 ML NEB NEB SCH ×4 (05:00→23:36)
[2022-05-25] MEDS: Acetaminophen ER (8hr) 650 MG TAB PO SCH (05:01)
[2022-05-25] MEDS: Potassium Chloride 20 MEQ TAB PO SCH (08:40)
[2022-05-25] MEDS: Famotidine 20 MG TAB PO SCH ×2 (08:40→21:25)
[2022-05-25] MEDS: Meloxicam 7.5 MG TAB PO SCH (08:40)
[2022-05-25] MEDS: Furosemide 20 MG TAB PO SCH (08:40)
[2022-05-25] MEDS: Lantiseptic Ointment 130 GM JAR TOP SCH ×2 (08:41→21:49)
[2022-05-25] MEDS: Silver Sulfadiazine 50 GM JAR TP SCH (08:42)
[2022-05-25] MEDS: hydrOXYzine 25 MG TAB PO PRN (21:25)
[2022-05-25] MEDS: HYDROcodone/Acetaminophen 5/325 mg Tablet PO PRN (21:26)
[2022-05-26] MEDS: Ipratropium/Albuterol 3 ML NEB NEB SCH ×3 (05:34→17:10)
[2022-05-26] MEDS: Acetaminophen ER (8hr) 650 MG TAB PO SCH (05:35)
[2022-05-26] MEDS: Levothyroxine Sodium 112 MCG TAB PO SCH (05:35)
[2022-05-26 05:45] LABS: Anion Gap 10 mmol/L (10-20); BUN (Urea Nitrogen) 9 mg/dL (8.4-25.7); Calc. Creatinine Clearance 106 mL/min (70-130); Calcium 7.9 mg/dL (7.8-10.44); Carbon Dioxide 28 mmol/L (23-31); Chloride 97 mmol/L (98-107); Estimated GFR 105; Glucose 101 mg/dL (80-115); Potassium 3.7 mmol/L (3.5-5.1); Sodium 131 mmol/L (136-145)
[2022-05-26] MEDS: Meloxicam 7.5 MG TAB PO SCH (08:20)
[2022-05-26] MEDS: Furosemide 20 MG TAB PO SCH (08:20)
[2022-05-26] MEDS: Potassium Chloride 20 MEQ TAB PO SCH (08:20)
[2022-05-26] MEDS: Famotidine 20 MG TAB PO SCH ×2 (08:20→21:41)
[2022-05-26] MEDS: Lantiseptic Ointment 130 GM JAR TOP SCH ×2 (08:21→21:41)
[2022-05-26] MEDS: HYDROcodone/Acetaminophen 5/325 mg Tablet PO PRN ×2 (13:20→21:46)
[2022-05-26] MEDS: Silver Sulfadiazine 50 GM JAR TP SCH (15:26)
[2022-05-26] MEDS: hydrOXYzine 25 MG TAB PO PRN (21:41)
[2022-05-27] MEDS: Ipratropium/Albuterol 3 ML NEB NEB SCH ×4 (00:55→17:07)
[2022-05-27] MEDS: Levothyroxine Sodium 112 MCG TAB PO SCH (05:46)
[2022-05-27] MEDS: Acetaminophen ER (8hr) 650 MG TAB PO SCH (05:46)
[2022-05-27] MEDS: Meloxicam 7.5 MG TAB PO SCH (08:15)
[2022-05-27] MEDS: Potassium Chloride 20 MEQ TAB PO SCH (08:15)
[2022-05-27] MEDS: Famotidine 20 MG TAB PO SCH ×2 (08:16→21:21)
[2022-05-27] MEDS: Furosemide 20 MG TAB PO SCH (08:16)
[2022-05-27] MEDS: Senokot S 8.6-50 MG TAB PO SCH ×2 (08:17→21:21)
[2022-05-27] MEDS: Lantiseptic Ointment 130 GM JAR TOP SCH ×2 (08:17→21:21)
[2022-05-27] MEDS: Polyethylene Glycol 3350 17 GM Packet PO SCH (08:17)
[2022-05-27] MEDS: HYDROcodone/Acetaminophen 5/325 mg Tablet PO PRN ×3 (08:25→21:18)
[2022-05-27] MEDS: Silver Sulfadiazine 50 GM JAR TP SCH (12:19)
[2022-05-28] MEDS: Ipratropium/Albuterol 3 ML NEB NEB SCH ×5 (00:40→23:13)
[2022-05-28] MEDS: Levothyroxine Sodium 112 MCG TAB PO SCH (06:04)
[2022-05-28] MEDS: Acetaminophen ER (8hr) 650 MG TAB PO SCH (06:04)
[2022-05-28 07:26] LABS: Anion Gap 11 mmol/L (10-20); BUN (Urea Nitrogen) 8 mg/dL (8.4-25.7); Calc. Creatinine Clearance 115 mL/min (70-130); Calcium 8.2 mg/dL (7.8-10.44); Carbon Dioxide 27 mmol/L (23-31); Chloride 95 mmol/L (98-107); Estimated GFR 109; Glucose 96 mg/dL (80-115); Potassium 4.3 mmol/L (3.5-5.1); Sodium 129 mmol/L (136-145)
[2022-05-28] MEDS: Furosemide 20 MG TAB PO SCH (08:04)
[2022-05-28] MEDS: Potassium Chloride 20 MEQ TAB PO SCH (08:04)
[2022-05-28] MEDS: Famotidine 20 MG TAB PO SCH ×2 (08:05→20:33)
[2022-05-28] MEDS: Meloxicam 7.5 MG TAB PO SCH (08:05)
[2022-05-28] MEDS: Senokot S 8.6-50 MG TAB PO SCH ×2 (08:05→20:33)
[2022-05-28] MEDS: Polyethylene Glycol 3350 17 GM Packet PO SCH (08:05)
[2022-05-28] MEDS: Lantiseptic Ointment 130 GM JAR TOP SCH ×2 (08:06→20:34)
[2022-05-28] MEDS: HYDROcodone/Acetaminophen 5/325 mg Tablet PO PRN (08:10)
[2022-05-28] MEDS: Triamcinolone 0.1% Cream 15 GM TUBE TOP SCH ×2 (08:15→20:36)
[2022-05-28] MEDS: Silver Sulfadiazine 50 GM JAR TP SCH (08:15)
[2022-05-28] MEDS: hydrOXYzine 25 MG TAB PO PRN (20:39)
[2022-05-28] MEDS: Sodium Chloride 1 GM TAB PO SCH (20:39)
[2022-05-29] MEDS: Acetaminophen ER (8hr) 650 MG TAB PO SCH (04:47)
[2022-05-29] MEDS: Ipratropium/Albuterol 3 ML NEB NEB SCH ×4 (04:48→23:30)
[2022-05-29] MEDS: Levothyroxine Sodium 112 MCG TAB PO SCH (04:48)
[2022-05-29 05:35] LABS: Hemoglobin 9.2 g/dL (14.0-18.0); Platelet Count 262 10x3/uL (130-400)
[2022-05-29 05:44] LABS: Anion Gap 11 mmol/L (10-20); BUN (Urea Nitrogen) 7 mg/dL (8.4-25.7); Calc. Creatinine Clearance 110 mL/min (70-130); Calcium 8.2 mg/dL (7.8-10.44); Carbon Dioxide 27 mmol/L (23-31); Chloride 98 mmol/L (98-107); Estimated GFR 106; Glucose 106 mg/dL (80-115); Potassium 4.4 mmol/L (3.5-5.1); Sodium 132 mmol/L (136-145)
[2022-05-29] MEDS: Potassium Chloride 20 MEQ TAB PO SCH (08:32)
[2022-05-29] MEDS: Polyethylene Glycol 3350 17 GM Packet PO SCH (08:32)
[2022-05-29] MEDS: Famotidine 20 MG TAB PO SCH ×2 (08:33→20:39)
[2022-05-29] MEDS: Meloxicam 7.5 MG TAB PO SCH (08:33)
[2022-05-29] MEDS: Furosemide 20 MG TAB PO SCH (08:33)
[2022-05-29] MEDS: Sodium Chloride 1 GM TAB PO SCH ×2 (08:33→20:39)
[2022-05-29] MEDS: HYDROcodone/Acetaminophen 5/325 mg Tablet PO PRN ×2 (08:33→20:52)
[2022-05-29] MEDS: Senokot S 8.6-50 MG TAB PO SCH ×2 (08:33→20:39)
[2022-05-29] MEDS: Silver Sulfadiazine 50 GM JAR TP SCH (08:35)
[2022-05-29] MEDS: Lantiseptic Ointment 130 GM JAR TOP SCH ×2 (08:35→20:40)
[2022-05-29] MEDS: Triamcinolone 0.1% Cream 15 GM TUBE TOP SCH ×2 (08:36→20:43)
[2022-05-30] MEDS: Acetaminophen ER (8hr) 650 MG TAB PO SCH (05:33)
[2022-05-30] MEDS: Levothyroxine Sodium 112 MCG TAB PO SCH (05:34)
[2022-05-30] MEDS: Ipratropium/Albuterol 3 ML NEB NEB SCH ×3 (05:35→17:18)
[2022-05-30] MEDS: Polyethylene Glycol 3350 17 GM Packet PO SCH (08:08)
[2022-05-30] MEDS: HYDROcodone/Acetaminophen 5/325 mg Tablet PO PRN ×2 (08:10→12:22)
[2022-05-30] MEDS: Famotidine 20 MG TAB PO SCH ×2 (08:10→20:49)
[2022-05-30] MEDS: Sodium Chloride 1 GM TAB PO SCH ×2 (08:10→20:49)
[2022-05-30] MEDS: Potassium Chloride 20 MEQ TAB PO SCH (08:10)
[2022-05-30] MEDS: Furosemide 20 MG TAB PO SCH (08:10)
[2022-05-30] MEDS: Meloxicam 7.5 MG TAB PO SCH (08:10)
[2022-05-30] MEDS: Silver Sulfadiazine 50 GM JAR TP SCH (08:11)
[2022-05-30] MEDS: Lantiseptic Ointment 130 GM JAR TOP SCH ×2 (08:11→20:50)
[2022-05-30] MEDS: Senokot S 8.6-50 MG TAB PO SCH ×2 (08:11→20:49)
[2022-05-30] MEDS: Triamcinolone 0.1% Cream 15 GM TUBE TOP SCH ×2 (08:12→20:51)
[2022-05-30] MEDS ORDERED: Furosemide 20 MG TAB PO SCH (21:00)
[2022-05-31] MEDS: Ipratropium/Albuterol 3 ML NEB NEB SCH ×5 (00:09→23:44)
[2022-05-31] MEDS: Levothyroxine Sodium 112 MCG TAB PO SCH (05:18)
[2022-05-31] MEDS: Acetaminophen ER (8hr) 650 MG TAB PO SCH (05:19)
[2022-05-31] MEDS ORDERED: Furosemide 20 MG TAB PO SCH ×3 (06:45→14:00)
[2022-05-31] MEDS: Famotidine 20 MG TAB PO SCH ×2 (08:20→20:42)
[2022-05-31] MEDS: Meloxicam 7.5 MG TAB PO SCH (08:20)
[2022-05-31] MEDS: Senokot S 8.6-50 MG TAB PO SCH ×2 (08:20→20:42)
[2022-05-31] MEDS: Sodium Chloride 1 GM TAB PO SCH ×2 (08:20→20:42)
[2022-05-31] MEDS: Potassium Chloride 20 MEQ TAB PO SCH (08:20)
[2022-05-31] MEDS: Polyethylene Glycol 3350 17 GM Packet PO SCH (08:20)
[2022-05-31] MEDS: Lantiseptic Ointment 130 GM JAR TOP SCH ×2 (08:21→20:46)
[2022-05-31] MEDS: Silver Sulfadiazine 50 GM JAR TP SCH (08:24)
[2022-05-31] MEDS: Triamcinolone 0.1% Cream 15 GM TUBE TOP SCH ×2 (08:24→20:46)
[2022-05-31] MEDS: HYDROcodone/Acetaminophen 5/325 mg Tablet PO PRN ×2 (09:27→20:41)
[2022-05-31] MEDS: Furosemide 20 MG TAB PO SCH (15:07)
[2022-05-31] MEDS: hydrOXYzine 25 MG TAB PO PRN (20:42)
[2022-06-01] MEDS: Furosemide 20 MG TAB PO SCH ×2 (05:08→13:27)
[2022-06-01] MEDS: Acetaminophen ER (8hr) 650 MG TAB PO SCH (05:09)
[2022-06-01] MEDS: Ipratropium/Albuterol 3 ML NEB NEB SCH ×3 (05:09→17:15)
[2022-06-01] MEDS: Levothyroxine Sodium 112 MCG TAB PO SCH (05:09)
[2022-06-01 07:21] LABS: #Basophils 0.1 thou/uL (0.0-0.2); #Eosinphils 0.4 thou/uL (0.0-0.7); #Lymphocytes 2.1 thou/uL (1.20-3.40); #Monocytes 0.6 thou/uL (0.11-0.59); %Eosinophils 5.9 % (0.0-10.0); %Lymphocytes 29.7 % (21.0-51.0); %Monocytes 8.1 % (0.0-10.0); %Neutrophils 55.3 % (42.0-75.0); Hemoglobin 8.6 g/dL (14.0-18.0); Mean Corpuscular HGB CONC 33.2 g/dL (32.0-36.0); Mean Corpuscular Hemoglobin 29.2 pg (27.0-31.0); Mean Corpuscular Volume 87.8 fl (78.0-98.0); Mean Platelet Volume 5.8 fL (7.4-10.4); Platelet Count 393 10x3/uL (130-400); RBC Distribution Width 13.6 % (11.5-14.5); Red Blood Cell (RBC) Count 2.95 mill/uL (4.70-6.10); White Blood Cell (WBC) Count 7.2 10x3/uL (4.8-10.8)
[2022-06-01 07:24] LABS: Anion Gap 9 mmol/L (10-20); BUN (Urea Nitrogen) 6 mg/dL (8.4-25.7); Calc. Creatinine Clearance 99 mL/min (70-130); Calcium 8.1 mg/dL (7.8-10.44); Carbon Dioxide 31 mmol/L (23-31); Chloride 97 mmol/L (98-107); Estimated GFR 104; Glucose 94 mg/dL (80-115); Potassium 4.3 mmol/L (3.5-5.1); Sodium 133 mmol/L (136-145)
[2022-06-01] MEDS: HYDROcodone/Acetaminophen 5/325 mg Tablet PO PRN ×3 (08:01→21:09)
[2022-06-01] MEDS: Meloxicam 7.5 MG TAB PO SCH (08:01)
[2022-06-01] MEDS: Sodium Chloride 1 GM TAB PO SCH ×2 (08:01→21:10)
[2022-06-01] MEDS: Famotidine 20 MG TAB PO SCH ×2 (08:02→21:10)
[2022-06-01] MEDS: Potassium Chloride 20 MEQ TAB PO SCH (08:02)
[2022-06-01] MEDS: Triamcinolone 0.1% Cream 15 GM TUBE TOP SCH ×2 (08:03→21:11)
[2022-06-01] MEDS: Silver Sulfadiazine 50 GM JAR TP SCH (08:04)
[2022-06-01] MEDS: Lantiseptic Ointment 130 GM JAR TOP SCH ×2 (08:04→21:11)
[2022-06-01] MEDS: Polyethylene Glycol 3350 17 GM Packet PO SCH ×2 (08:04→08:09)
[2022-06-01] MEDS: Senokot S 8.6-50 MG TAB PO SCH ×2 (08:04→21:10)
[2022-06-01] MEDS: hydrOXYzine 25 MG TAB PO PRN (21:10)
[2022-06-02] MEDS: Ipratropium/Albuterol 3 ML NEB NEB SCH ×5 (00:15→23:49)
[2022-06-02] MEDS: Levothyroxine Sodium 112 MCG TAB PO SCH (05:22)
[2022-06-02] MEDS: Acetaminophen ER (8hr) 650 MG TAB PO SCH (05:23)
[2022-06-02] MEDS: HYDROcodone/Acetaminophen 5/325 mg Tablet PO PRN ×3 (05:23→20:55)
[2022-06-02] MEDS: Furosemide 20 MG TAB PO SCH ×2 (05:23→14:14)
[2022-06-02] MEDS: Senokot S 8.6-50 MG TAB PO SCH ×2 (08:16→20:55)
[2022-06-02] MEDS: Potassium Chloride 20 MEQ TAB PO SCH (08:16)
[2022-06-02] MEDS: Meloxicam 7.5 MG TAB PO SCH (08:17)
[2022-06-02] MEDS: Sodium Chloride 1 GM TAB PO SCH ×2 (08:17→20:55)
[2022-06-02] MEDS: Famotidine 20 MG TAB PO SCH ×2 (08:17→20:55)
[2022-06-02] MEDS: Lantiseptic Ointment 130 GM JAR TOP SCH ×2 (08:18→21:16)
[2022-06-02] MEDS: Silver Sulfadiazine 50 GM JAR TP SCH (08:18)
[2022-06-02] MEDS: Polyethylene Glycol 3350 17 GM Packet PO SCH (08:18)
[2022-06-02] MEDS: Triamcinolone 0.1% Cream 15 GM TUBE TOP SCH ×2 (08:18→21:17)
[2022-06-02] MEDS: hydrOXYzine 25 MG TAB PO PRN (20:55)
[2022-06-03] MEDS: Furosemide 20 MG TAB PO SCH ×2 (05:36→14:54)
[2022-06-03] MEDS: Levothyroxine Sodium 112 MCG TAB PO SCH (05:36)
[2022-06-03] MEDS: Acetaminophen ER (8hr) 650 MG TAB PO SCH (05:36)
[2022-06-03] MEDS: HYDROcodone/Acetaminophen 5/325 mg Tablet PO PRN (05:37)
[2022-06-03] MEDS: Ipratropium/Albuterol 3 ML NEB NEB SCH ×3 (05:41→17:52)
[2022-06-03] MEDS: Meloxicam 7.5 MG TAB PO SCH (08:40)
[2022-06-03] MEDS: Famotidine 20 MG TAB PO SCH ×2 (08:40→20:55)
[2022-06-03] MEDS: Polyethylene Glycol 3350 17 GM Packet PO SCH (08:40)
[2022-06-03] MEDS: Senokot S 8.6-50 MG TAB PO SCH ×2 (08:41→20:56)
[2022-06-03] MEDS: Lantiseptic Ointment 130 GM JAR TOP SCH ×2 (08:41→20:56)
[2022-06-03] MEDS: Silver Sulfadiazine 50 GM JAR TP SCH (08:41)
[2022-06-03] MEDS: Potassium Chloride 20 MEQ TAB PO SCH (08:41)
[2022-06-03] MEDS: Sodium Chloride 1 GM TAB PO SCH ×2 (08:41→20:55)
[2022-06-03] MEDS: Triamcinolone 0.1% Cream 15 GM TUBE TOP SCH ×2 (08:42→20:57)
[2022-06-03] MEDS: Diclofenac 1% 100 GM GEL TP SCH ×2 (17:52→20:55)
[2022-06-04] MEDS: Ipratropium/Albuterol 3 ML NEB NEB SCH ×4 (00:33→17:23)
[2022-06-04] MEDS: Acetaminophen ER (8hr) 650 MG TAB PO SCH (05:25)
[2022-06-04] MEDS: Furosemide 20 MG TAB PO SCH ×2 (05:26→14:44)
[2022-06-04] MEDS: Levothyroxine Sodium 112 MCG TAB PO SCH (05:26)
[2022-06-04] MEDS: HYDROcodone/Acetaminophen 5/325 mg Tablet PO PRN (05:28)
[2022-06-04] MEDS: Polyethylene Glycol 3350 17 GM Packet PO SCH (08:34)
[2022-06-04] MEDS: Sodium Chloride 1 GM TAB PO SCH ×2 (08:34→20:57)
[2022-06-04] MEDS: Meloxicam 7.5 MG TAB PO SCH (08:34)
[2022-06-04] MEDS: Potassium Chloride 20 MEQ TAB PO SCH (08:35)
[2022-06-04] MEDS: Senokot S 8.6-50 MG TAB PO SCH ×2 (08:35→20:57)
[2022-06-04] MEDS: Famotidine 20 MG TAB PO SCH ×2 (08:35→20:57)
[2022-06-04] MEDS: Lantiseptic Ointment 130 GM JAR TOP SCH ×2 (08:36→20:55)
[2022-06-04] MEDS: Diclofenac 1% 100 GM GEL TP SCH ×4 (08:36→20:55)
[2022-06-04] MEDS: Triamcinolone 0.1% Cream 15 GM TUBE TOP SCH ×2 (08:37→20:57)
[2022-06-04] MEDS: Silver Sulfadiazine 50 GM JAR TP SCH (08:37)
[2022-06-04] MEDS: Ondansetron ODT 4 MG TAB PO PRN (10:26)
[2022-06-04] MEDS: Acetaminophen 500 MG TAB PO PRN (21:00)
[2022-06-05] MEDS: Ipratropium/Albuterol 3 ML NEB NEB SCH ×4 (00:18→17:49)
[2022-06-05 05:36] LABS: #Basophils 0.2 thou/uL (0.0-0.2); #Eosinphils 0.3 thou/uL (0.0-0.7); #Lymphocytes 1.6 thou/uL (1.20-3.40); #Neutrophils 6.6 thou/uL (1.40-6.50); %Basophils 2.1 % (0.0-1.0); %Eosinophils 2.7 % (0.0-10.0); %Lymphocytes 16.3 % (21.0-51.0); %Monocytes 10.2 % (0.0-10.0); %Neutrophils 68.8 % (42.0-75.0); Hemoglobin 9.2 g/dL (14.0-18.0); Mean Corpuscular HGB CONC 34.3 g/dL (32.0-36.0); Mean Corpuscular Hemoglobin 29.3 pg (27.0-31.0); Mean Corpuscular Volume 85.5 fl (78.0-98.0); Mean Platelet Volume 5.5 fL (7.4-10.4); Platelet Count 479 10x3/uL (130-400); RBC Distribution Width 13.5 % (11.5-14.5); Red Blood Cell (RBC) Count 3.14 mill/uL (4.70-6.10); White Blood Cell (WBC) Count 9.7 10x3/uL (4.8-10.8)
[2022-06-05 05:46] LABS: Anion Gap 9 mmol/L (10-20); BUN (Urea Nitrogen) 10 mg/dL (8.4-25.7); Calc. Creatinine Clearance 96 mL/min (70-130); Calcium 8.1 mg/dL (7.8-10.44); Carbon Dioxide 30 mmol/L (23-31); Chloride 96 mmol/L (98-107); Estimated GFR 103; Glucose 105 mg/dL (80-115); Potassium 3.8 mmol/L (3.5-5.1); Sodium 131 mmol/L (136-145)
[2022-06-05] MEDS: Acetaminophen ER (8hr) 650 MG TAB PO SCH (05:46)
[2022-06-05] MEDS: Furosemide 20 MG TAB PO SCH ×2 (05:47→14:08)
[2022-06-05] MEDS: Levothyroxine Sodium 112 MCG TAB PO SCH (05:47)
[2022-06-05] MEDS: Polyethylene Glycol 3350 17 GM Packet PO SCH (08:39)
[2022-06-05] MEDS: Famotidine 20 MG TAB PO SCH ×2 (08:40→21:15)
[2022-06-05] MEDS: Senokot S 8.6-50 MG TAB PO SCH ×2 (08:40→21:16)
[2022-06-05] MEDS: Sodium Chloride 1 GM TAB PO SCH ×2 (08:40→21:16)
[2022-06-05] MEDS: Meloxicam 7.5 MG TAB PO SCH (08:40)
[2022-06-05] MEDS: Diclofenac 1% 100 GM GEL TP SCH ×4 (08:41→21:16)
[2022-06-05] MEDS: Potassium Chloride 20 MEQ TAB PO SCH (08:41)
[2022-06-05] MEDS: Triamcinolone 0.1% Cream 15 GM TUBE TOP SCH ×2 (08:42→21:16)
[2022-06-05] MEDS: Lantiseptic Ointment 130 GM JAR TOP SCH ×2 (08:42→21:16)
[2022-06-05] MEDS: Silver Sulfadiazine 50 GM JAR TP SCH (08:42)
[2022-06-05] MEDS: Ondansetron ODT 4 MG TAB PO PRN (13:04)
[2022-06-06] MEDS: Ipratropium/Albuterol 3 ML NEB NEB SCH ×4 (00:59→17:17)
[2022-06-06] MEDS: Furosemide 20 MG TAB PO SCH ×2 (05:46→13:04)
[2022-06-06] MEDS: Levothyroxine Sodium 112 MCG TAB PO SCH (05:46)
[2022-06-06] MEDS: Acetaminophen ER (8hr) 650 MG TAB PO SCH (05:46)
[2022-06-06] MEDS: Sodium Chloride 1 GM TAB PO SCH ×2 (08:12→20:54)
[2022-06-06] MEDS: Famotidine 20 MG TAB PO SCH ×2 (08:12→20:54)
[2022-06-06] MEDS: Senokot S 8.6-50 MG TAB PO SCH ×2 (08:12→20:54)
[2022-06-06] MEDS: Meloxicam 7.5 MG TAB PO SCH (08:12)
[2022-06-06] MEDS: Diclofenac 1% 100 GM GEL TP SCH ×4 (08:14→20:56)
[2022-06-06] MEDS: Silver Sulfadiazine 50 GM JAR TP SCH (08:14)
[2022-06-06] MEDS: Polyethylene Glycol 3350 17 GM Packet PO SCH (08:15)
[2022-06-06] MEDS: Lantiseptic Ointment 130 GM JAR TOP SCH ×2 (08:15→20:55)
[2022-06-06] MEDS: Potassium Chloride 20 MEQ TAB PO SCH (08:15)
[2022-06-06] MEDS: Triamcinolone 0.1% Cream 15 GM TUBE TOP SCH ×2 (08:16→20:57)
[2022-06-06] MEDS: Acetaminophen 500 MG TAB PO PRN (21:00)
[2022-06-07] MEDS: Ipratropium/Albuterol 3 ML NEB NEB SCH ×4 (00:40→17:42)
[2022-06-07] MEDS: Acetaminophen ER (8hr) 650 MG TAB PO SCH (05:56)
[2022-06-07] MEDS: Levothyroxine Sodium 112 MCG TAB PO SCH (05:57)
[2022-06-07] MEDS: Furosemide 20 MG TAB PO SCH ×2 (05:57→13:14)
[2022-06-07] MEDS: Senokot S 8.6-50 MG TAB PO SCH ×2 (08:28→20:49)
[2022-06-07] MEDS: Meloxicam 7.5 MG TAB PO SCH (08:28)
[2022-06-07] MEDS: Polyethylene Glycol 3350 17 GM Packet PO SCH (08:28)
[2022-06-07] MEDS: Famotidine 20 MG TAB PO SCH ×2 (08:28→20:49)
[2022-06-07] MEDS: Sodium Chloride 1 GM TAB PO SCH ×2 (08:28→20:49)
[2022-06-07] MEDS: Diclofenac 1% 100 GM GEL TP SCH ×4 (08:31→20:49)
[2022-06-07] MEDS: Potassium Chloride 20 MEQ TAB PO SCH (08:31)
[2022-06-07] MEDS: Triamcinolone 0.1% Cream 15 GM TUBE TOP SCH ×2 (08:32→20:50)
[2022-06-07] MEDS: Lantiseptic Ointment 130 GM JAR TOP SCH ×2 (08:32→20:50)
[2022-06-07] MEDS: Silver Sulfadiazine 50 GM JAR TP SCH (08:32)
[2022-06-07] MEDS: Acetaminophen 500 MG TAB PO PRN (20:54)
[2022-06-08] MEDS: Ipratropium/Albuterol 3 ML NEB NEB SCH ×5 (00:39→23:38)
[2022-06-08] MEDS: Furosemide 20 MG TAB PO SCH ×2 (06:01→14:09)
[2022-06-08] MEDS: Levothyroxine Sodium 112 MCG TAB PO SCH (06:01)
[2022-06-08] MEDS: Acetaminophen ER (8hr) 650 MG TAB PO SCH (06:02)
[2022-06-08] MEDS: Polyethylene Glycol 3350 17 GM Packet PO SCH (08:33)
[2022-06-08] MEDS: Senokot S 8.6-50 MG TAB PO SCH ×2 (08:33→20:56)
[2022-06-08] MEDS: Potassium Chloride 20 MEQ TAB PO SCH (08:33)
[2022-06-08] MEDS: Meloxicam 7.5 MG TAB PO SCH (08:33)
[2022-06-08] MEDS: Famotidine 20 MG TAB PO SCH ×2 (08:33→20:56)
[2022-06-08] MEDS: Diclofenac 1% 100 GM GEL TP SCH ×4 (08:34→20:56)
[2022-06-08] MEDS: Lantiseptic Ointment 130 GM JAR TOP SCH ×2 (08:35→20:56)
[2022-06-08] MEDS: Silver Sulfadiazine 50 GM JAR TP SCH (08:35)
[2022-06-08] MEDS: Triamcinolone 0.1% Cream 15 GM TUBE TOP SCH ×2 (08:35→20:56)
[2022-06-08] MEDS: Sodium Chloride 1 GM TAB PO SCH ×2 (08:35→20:56)
[2022-06-08] MEDS: HYDROcodone/Acetaminophen 5/325 mg Tablet PO PRN (10:23)
[2022-06-09] MEDS: Levothyroxine Sodium 112 MCG TAB PO SCH (06:10)
[2022-06-09] MEDS: Furosemide 20 MG TAB PO SCH ×2 (06:10→14:47)
[2022-06-09] MEDS: Acetaminophen ER (8hr) 650 MG TAB PO SCH (06:11)
[2022-06-09] MEDS: Ipratropium/Albuterol 3 ML NEB NEB SCH ×3 (06:11→17:14)
[2022-06-09] MEDS: HYDROcodone/Acetaminophen 5/325 mg Tablet PO PRN (08:26)
[2022-06-09] MEDS: Potassium Chloride 20 MEQ TAB PO SCH (08:27)
[2022-06-09] MEDS: Senokot S 8.6-50 MG TAB PO SCH ×2 (08:27→20:57)
[2022-06-09] MEDS: Famotidine 20 MG TAB PO SCH ×2 (08:27→20:56)
[2022-06-09] MEDS: Meloxicam 7.5 MG TAB PO SCH (08:27)
[2022-06-09] MEDS: Diclofenac 1% 100 GM GEL TP SCH ×4 (08:28→20:56)
[2022-06-09] MEDS: Lantiseptic Ointment 130 GM JAR TOP SCH ×2 (08:28→20:56)
[2022-06-09] MEDS: Sodium Chloride 1 GM TAB PO SCH ×2 (08:28→20:56)
[2022-06-09] MEDS: Polyethylene Glycol 3350 17 GM Packet PO SCH (08:29)
[2022-06-09] MEDS: Triamcinolone 0.1% Cream 15 GM TUBE TOP SCH ×2 (08:29→20:57)
[2022-06-09] MEDS: Acetaminophen 500 MG TAB PO PRN (20:57)
[2022-06-10] MEDS: Ipratropium/Albuterol 3 ML NEB NEB SCH ×4 (00:20→18:09)
[2022-06-10] MEDS: Ipratropium/Albuterol 3 ML NEB NEB PRN (02:06)
[2022-06-10] MEDS ORDERED: Ipratropium/Albuterol 3 ML NEB NEB SCH (03:15)
[2022-06-10 03:35] LABS: ALT (SGPT) 11 U/L (8-55); AST (SGOT) 11 U/L (5-34); Albumin 2.8 g/dL (3.4-4.8); Alkaline Phosphatase 104 U/L (40-110); Anion Gap 10 mmol/L (10-20); BUN (Urea Nitrogen) 11 mg/dL (8.4-25.7); Bilirubin, Total 0.3 mg/dL (0.2-1.2); Calc. Creatinine Clearance 88 mL/min (70-130); Calcium 8.4 mg/dL (7.8-10.44); Carbon Dioxide 27 mmol/L (23-31); Chloride 100 mmol/L (98-107); Estimated GFR 102; Globulin 3.2 g/dL (2.4-3.5); Glucose 65 mg/dL (80-115); Potassium 3.8 mmol/L (3.5-5.1); Sodium 133 mmol/L (136-145)
[2022-06-10 03:45] LABS: Band 8 % (5-11); Eosinophils 1 % (0-10); Hemoglobin 9.5 g/dL (14.0-18.0); Lymphocytes 19 % (21-51); MDiff Complete? YES; Mean Corpuscular HGB CONC 33.2 g/dL (32.0-36.0); Mean Corpuscular Hemoglobin 29.7 pg (27.0-31.0); Mean Corpuscular Volume 89.5 fl (78.0-98.0); Mean Platelet Volume 5.9 fL (7.4-10.4); Monocytes 10 % (0-10); Neutrophil 62 % (42-75); Platelet Count 412 10x3/uL (130-400); White Blood Cell (WBC) Count 11.1 10x3/uL (4.8-10.8)
[2022-06-10] MEDS ORDERED: guaiFENesin ER 600 MG TAB PO SCH (04:30)
[2022-06-10] MEDS ORDERED: predniSONE 20 MG TAB PO SCH (04:30)
[2022-06-10] MEDS: predniSONE 20 MG TAB PO SCH (04:40)
[2022-06-10] MEDS: Levothyroxine Sodium 112 MCG TAB PO SCH (06:02)
[2022-06-10] MEDS: Furosemide 20 MG TAB PO SCH ×2 (06:02→13:18)
[2022-06-10] MEDS: Acetaminophen ER (8hr) 650 MG TAB PO SCH (06:02)
[2022-06-10] MEDS: Sodium Chloride 1 GM TAB PO SCH ×2 (08:35→21:12)
[2022-06-10] MEDS: HYDROcodone/Acetaminophen 5/325 mg Tablet PO PRN ×2 (08:35→15:52)
[2022-06-10] MEDS: Potassium Chloride 20 MEQ TAB PO SCH (08:36)
[2022-06-10] MEDS: Meloxicam 7.5 MG TAB PO SCH (08:36)
[2022-06-10] MEDS: Triamcinolone 0.1% Cream 15 GM TUBE TOP SCH ×2 (08:37→21:14)
[2022-06-10] MEDS: Polyethylene Glycol 3350 17 GM Packet PO SCH (08:37)
[2022-06-10] MEDS: Famotidine 20 MG TAB PO SCH ×2 (08:37→21:12)
[2022-06-10] MEDS: Senokot S 8.6-50 MG TAB PO SCH ×2 (08:37→21:14)
[2022-06-10] MEDS: Diclofenac 1% 100 GM GEL TP SCH ×4 (08:37→21:13)
[2022-06-10] MEDS: Lantiseptic Ointment 130 GM JAR TOP SCH ×2 (08:38→21:13)
[2022-06-10] MEDS: guaiFENesin ER 600 MG TAB PO SCH (21:12)
[2022-06-11] MEDS: Ipratropium/Albuterol 3 ML NEB NEB SCH ×4 (00:38→17:35)
[2022-06-11] MEDS: Levothyroxine Sodium 112 MCG TAB PO SCH (05:50)
[2022-06-11] MEDS: Acetaminophen ER (8hr) 650 MG TAB PO SCH (05:50)
[2022-06-11] MEDS: Furosemide 20 MG TAB PO SCH ×2 (07:29→14:43)
[2022-06-11] MEDS: HYDROcodone/Acetaminophen 5/325 mg Tablet PO PRN (08:49)
[2022-06-11] MEDS: Meloxicam 7.5 MG TAB PO SCH (08:50)
[2022-06-11] MEDS: Senokot S 8.6-50 MG TAB PO SCH ×2 (08:50→20:19)
[2022-06-11] MEDS: Sodium Chloride 1 GM TAB PO SCH ×2 (08:50→20:18)
[2022-06-11] MEDS: predniSONE 20 MG TAB PO SCH (08:50)
[2022-06-11] MEDS: Potassium Chloride 20 MEQ TAB PO SCH (08:50)
[2022-06-11] MEDS: Famotidine 20 MG TAB PO SCH ×2 (08:50→20:19)
[2022-06-11] MEDS: guaiFENesin ER 600 MG TAB PO SCH ×2 (08:50→20:19)
[2022-06-11] MEDS: Polyethylene Glycol 3350 17 GM Packet PO SCH (08:51)
[2022-06-11] MEDS: Diclofenac 1% 100 GM GEL TP SCH ×4 (08:51→20:19)
[2022-06-11] MEDS: Lantiseptic Ointment 130 GM JAR TOP SCH ×2 (08:51→20:19)
[2022-06-11] MEDS: Triamcinolone 0.1% Cream 15 GM TUBE TOP SCH ×2 (08:51→20:20)
[2022-06-12] MEDS: Levothyroxine Sodium 112 MCG TAB PO SCH (05:46)
[2022-06-12] MEDS: Furosemide 20 MG TAB PO SCH ×2 (05:47→15:11)
[2022-06-12] MEDS: Acetaminophen ER (8hr) 650 MG TAB PO SCH (05:47)
[2022-06-12] MEDS: Ipratropium/Albuterol 3 ML NEB NEB SCH ×4 (05:48→17:45)
[2022-06-12] MEDS ORDERED: Ipratropium/Albuterol 3 ML NEB NEB SCH (07:45)
[2022-06-12] MEDS: Ipratropium/Albuterol 3 ML NEB NEB PRN (08:03)
[2022-06-12] MEDS: Meloxicam 7.5 MG TAB PO SCH (08:03)
[2022-06-12] MEDS: Sodium Chloride 1 GM TAB PO SCH ×2 (08:03→21:12)
[2022-06-12] MEDS: Senokot S 8.6-50 MG TAB PO SCH ×2 (08:03→21:12)
[2022-06-12] MEDS: guaiFENesin ER 600 MG TAB PO SCH ×2 (08:03→21:12)
[2022-06-12] MEDS: Potassium Chloride 20 MEQ TAB PO SCH (08:03)
[2022-06-12] MEDS: predniSONE 20 MG TAB PO SCH (08:04)
[2022-06-12] MEDS: Famotidine 20 MG TAB PO SCH ×2 (08:04→21:12)
[2022-06-12] MEDS: Diclofenac 1% 100 GM GEL TP SCH ×4 (08:07→21:13)
[2022-06-12] MEDS: Lantiseptic Ointment 130 GM JAR TOP SCH ×2 (08:07→21:14)
[2022-06-12] MEDS: Polyethylene Glycol 3350 17 GM Packet PO SCH (08:08)
[2022-06-12] MEDS: Triamcinolone 0.1% Cream 15 GM TUBE TOP SCH ×2 (08:08→21:00)
[2022-06-12] MEDS: HYDROcodone/Acetaminophen 5/325 mg Tablet PO PRN (21:17)
[2022-06-13] MEDS: Ipratropium/Albuterol 3 ML NEB NEB SCH ×4 (00:10→17:22)
[2022-06-13] MEDS: Acetaminophen ER (8hr) 650 MG TAB PO SCH (05:50)
[2022-06-13] MEDS: Furosemide 20 MG TAB PO SCH ×2 (05:50→14:36)
[2022-06-13] MEDS: Levothyroxine Sodium 112 MCG TAB PO SCH (05:50)
[2022-06-13] MEDS: Sodium Chloride 1 GM TAB PO SCH ×2 (08:40→20:30)
[2022-06-13] MEDS: guaiFENesin ER 600 MG TAB PO SCH ×2 (08:40→20:30)
[2022-06-13] MEDS: Meloxicam 7.5 MG TAB PO SCH (08:40)
[2022-06-13] MEDS: Senokot S 8.6-50 MG TAB PO SCH ×2 (08:42→20:31)
[2022-06-13] MEDS: Lantiseptic Ointment 130 GM JAR TOP SCH ×2 (08:42→20:32)
[2022-06-13] MEDS: Polyethylene Glycol 3350 17 GM Packet PO SCH (08:42)
[2022-06-13] MEDS: Famotidine 20 MG TAB PO SCH ×2 (08:42→20:31)
[2022-06-13] MEDS: Diclofenac 1% 100 GM GEL TP SCH ×4 (08:42→20:32)
[2022-06-13] MEDS: predniSONE 20 MG TAB PO SCH (08:43)
[2022-06-13] MEDS: Triamcinolone 0.1% Cream 15 GM TUBE TOP SCH ×2 (08:44→20:31)
[2022-06-13] MEDS: Potassium Chloride 20 MEQ TAB PO SCH (08:44)
[2022-06-14] MEDS: Ipratropium/Albuterol 3 ML NEB NEB SCH ×4 (00:02→17:12)
[2022-06-14] MEDS: Acetaminophen ER (8hr) 650 MG TAB PO SCH (06:03)
[2022-06-14] MEDS: Levothyroxine Sodium 112 MCG TAB PO SCH (06:04)
[2022-06-14] MEDS: Meloxicam 7.5 MG TAB PO SCH (08:41)
[2022-06-14] MEDS: Furosemide 20 MG TAB PO SCH ×2 (08:41→14:00)
[2022-06-14] MEDS: Sodium Chloride 1 GM TAB PO SCH ×2 (08:41→20:35)
[2022-06-14] MEDS: guaiFENesin ER 600 MG TAB PO SCH ×2 (08:41→20:35)
[2022-06-14] MEDS: Potassium Chloride 20 MEQ TAB PO SCH (08:42)
[2022-06-14] MEDS: Famotidine 20 MG TAB PO SCH ×2 (08:42→20:35)
[2022-06-14] MEDS: predniSONE 20 MG TAB PO SCH (08:43)
[2022-06-14] MEDS: Lantiseptic Ointment 130 GM JAR TOP SCH ×2 (08:43→20:37)
[2022-06-14] MEDS: Diclofenac 1% 100 GM GEL TP SCH ×4 (08:43→20:36)
[2022-06-14] MEDS: HYDROcodone/Acetaminophen 5/325 mg Tablet PO PRN (08:48)
[2022-06-14] MEDS: Polyethylene Glycol 3350 17 GM Packet PO SCH (08:49)
[2022-06-14] MEDS: Triamcinolone 0.1% Cream 15 GM TUBE TOP SCH ×2 (08:49→20:37)
[2022-06-14] MEDS: Senokot S 8.6-50 MG TAB PO SCH ×2 (08:49→20:35)
[2022-06-14] MEDS ORDERED: Furosemide 20 MG TAB PO SCH (09:00)
[2022-06-14] MEDS: Ipratropium/Albuterol 3 ML NEB NEB PRN (09:10)
[2022-06-14] MEDS: Midodrine HCl 2.5 MG TAB PO PRN (12:03)
[2022-06-15] MEDS: Ipratropium/Albuterol 3 ML NEB NEB SCH ×4 (01:15→17:29)
[2022-06-15] MEDS: Acetaminophen ER (8hr) 650 MG TAB PO SCH (05:36)
[2022-06-15] MEDS: Levothyroxine Sodium 112 MCG TAB PO SCH (05:37)
[2022-06-15] MEDS: Furosemide 20 MG TAB PO SCH ×2 (05:37→13:57)
[2022-06-15] MEDS: Meloxicam 7.5 MG TAB PO SCH (09:07)
[2022-06-15] MEDS: guaiFENesin ER 600 MG TAB PO SCH ×2 (09:07→21:27)
[2022-06-15] MEDS: Sodium Chloride 1 GM TAB PO SCH ×2 (09:07→21:27)
[2022-06-15] MEDS: Potassium Chloride 20 MEQ TAB PO SCH (09:08)
[2022-06-15] MEDS: Senokot S 8.6-50 MG TAB PO SCH ×2 (09:08→21:27)
[2022-06-15] MEDS: Polyethylene Glycol 3350 17 GM Packet PO SCH (09:08)
[2022-06-15] MEDS: Famotidine 20 MG TAB PO SCH ×2 (09:08→21:27)
[2022-06-15] MEDS: Lantiseptic Ointment 130 GM JAR TOP SCH ×2 (09:09→21:29)
[2022-06-15] MEDS: Diclofenac 1% 100 GM GEL TP SCH ×4 (09:09→21:28)
[2022-06-15] MEDS: Triamcinolone 0.1% Cream 15 GM TUBE TOP SCH ×2 (09:09→21:29)
[2022-06-15] MEDS: Midodrine HCl 2.5 MG TAB PO PRN (09:18)
[2022-06-16] MEDS: Ipratropium/Albuterol 3 ML NEB NEB SCH ×4 (00:48→17:40)
[2022-06-16] MEDS: Acetaminophen ER (8hr) 650 MG TAB PO SCH (05:31)
[2022-06-16] MEDS: Furosemide 20 MG TAB PO SCH ×2 (05:31→14:26)
[2022-06-16] MEDS: Levothyroxine Sodium 112 MCG TAB PO SCH (05:32)
[2022-06-16] MEDS: Midodrine HCl 2.5 MG TAB PO PRN (09:24)
[2022-06-16] MEDS: Meloxicam 7.5 MG TAB PO SCH (09:24)
[2022-06-16] MEDS: Famotidine 20 MG TAB PO SCH ×2 (09:24→20:50)
[2022-06-16] MEDS: guaiFENesin ER 600 MG TAB PO SCH ×2 (09:24→20:51)
[2022-06-16] MEDS: Potassium Chloride 20 MEQ TAB PO SCH (09:24)
[2022-06-16] MEDS: Sodium Chloride 1 GM TAB PO SCH ×2 (09:24→20:51)
[2022-06-16] MEDS: Senokot S 8.6-50 MG TAB PO SCH ×2 (09:24→20:51)
[2022-06-16] MEDS: Lantiseptic Ointment 130 GM JAR TOP SCH ×2 (09:25→20:51)
[2022-06-16] MEDS: Polyethylene Glycol 3350 17 GM Packet PO SCH (09:25)
[2022-06-16] MEDS: Diclofenac 1% 100 GM GEL TP SCH ×4 (09:25→20:50)
[2022-06-16] MEDS: Triamcinolone 0.1% Cream 15 GM TUBE TOP SCH ×2 (09:25→20:51)
[2022-06-16 11:32] VITALS: BMI 17.8
[2022-06-16] MEDS: Midodrine HCl 5 MG TAB PO SCH ×2 (14:26→20:51)
[2022-06-16] MEDS: HYDROcodone/Acetaminophen 5/325 mg Tablet PO PRN (20:55)
[2022-06-17] MEDS: Ipratropium/Albuterol 3 ML NEB NEB SCH ×5 (00:07→23:45)
[2022-06-17] MEDS: Levothyroxine Sodium 112 MCG TAB PO SCH (05:35)
[2022-06-17] MEDS: Acetaminophen ER (8hr) 650 MG TAB PO SCH (05:35)
[2022-06-17] MEDS: Furosemide 20 MG TAB PO SCH ×2 (05:35→14:26)
[2022-06-17] MEDS: Meloxicam 7.5 MG TAB PO SCH (08:20)
[2022-06-17] MEDS: Diclofenac 1% 100 GM GEL TP SCH ×4 (08:20→21:17)
[2022-06-17] MEDS: Sodium Chloride 1 GM TAB PO SCH ×2 (08:20→21:14)
[2022-06-17] MEDS: Famotidine 20 MG TAB PO SCH ×2 (08:20→21:14)
[2022-06-17] MEDS: Midodrine HCl 5 MG TAB PO SCH ×3 (08:20→21:14)
[2022-06-17] MEDS: guaiFENesin ER 600 MG TAB PO SCH ×2 (08:20→21:14)
[2022-06-17] MEDS: Lantiseptic Ointment 130 GM JAR TOP SCH ×2 (08:21→21:14)
[2022-06-17] MEDS: Polyethylene Glycol 3350 17 GM Packet PO SCH (08:21)
[2022-06-17] MEDS: Triamcinolone 0.1% Cream 15 GM TUBE TOP SCH ×2 (08:22→21:14)
[2022-06-17] MEDS: Senokot S 8.6-50 MG TAB PO SCH ×2 (08:22→21:14)
[2022-06-17] MEDS: Potassium Chloride 20 MEQ TAB PO SCH (08:22)
[2022-06-17] MEDS: HYDROcodone/Acetaminophen 5/325 mg Tablet PO PRN ×2 (08:25→21:16)
[2022-06-18] MEDS: Furosemide 20 MG TAB PO SCH ×2 (05:18→14:19)
[2022-06-18] MEDS: Acetaminophen ER (8hr) 650 MG TAB PO SCH (05:18)
[2022-06-18] MEDS: Levothyroxine Sodium 112 MCG TAB PO SCH (05:18)
[2022-06-18] MEDS: Ipratropium/Albuterol 3 ML NEB NEB SCH ×2 (05:21→11:47)
[2022-06-18] MEDS: Midodrine HCl 5 MG TAB PO SCH ×2 (07:26→14:18)
[2022-06-18] MEDS: Famotidine 20 MG TAB PO SCH (08:18)
[2022-06-18] MEDS: Sodium Chloride 1 GM TAB PO SCH (08:18)
[2022-06-18] MEDS: Meloxicam 7.5 MG TAB PO SCH (08:18)
[2022-06-18] MEDS: Potassium Chloride 20 MEQ TAB PO SCH (08:18)
[2022-06-18] MEDS: Senokot S 8.6-50 MG TAB PO SCH (08:18)
[2022-06-18] MEDS: Polyethylene Glycol 3350 17 GM Packet PO SCH (08:19)
[2022-06-18] MEDS: Triamcinolone 0.1% Cream 15 GM TUBE TOP SCH (08:19)
[2022-06-18] MEDS: Lantiseptic Ointment 130 GM JAR TOP SCH (08:19)
[2022-06-18] MEDS: guaiFENesin ER 600 MG TAB PO SCH (08:19)
[2022-06-18] MEDS: Diclofenac 1% 100 GM GEL TP SCH (08:19)
[2022-06-18 09:06] VITALS: TEMP 98.1
[2022-06-18 16:51] VITALS: BP 116/62
== END 2022-06-18 16:53 | disposition home or self-care (01) | DRG 947 ==
LOC: MADMS 19:00
PROVIDERS: ADMIT Family Medicine; ATTEND Family Medicine
DX: R53.1 Weakness (principal); J15.1 Pneumonia due to Pseudomonas; J15.211 Pneumonia due to Methicillin susceptible Staphylococcus aureus; J96.01 Acute respiratory failure with hypoxia; E44.0 Moderate protein-calorie malnutrition; E87.1 Hypo-osmolality and hyponatremia; I50.40 Unspecified combined systolic (congestive) and diastolic (congestive) heart failure; Z68.1 Body mass index [BMI] 19.9 or less, adult; J44.0 Chronic obstructive pulmonary disease with (acute) lower respiratory infection; J44.1 Chronic obstructive pulmonary disease with (acute) exacerbation; I25.10 Atherosclerotic heart disease of native coronary artery without angina pectoris; E03.9 Hypothyroidism, unspecified; I25.5 Ischemic cardiomyopathy; G89.29 Other chronic pain; L89.150 Pressure ulcer of sacral region, unstageable; E87.6 Hypokalemia; F10.20 Alcohol dependence, uncomplicated; L28.2 Other prurigo; I95.1 Orthostatic hypotension; D63.8 Anemia in other chronic diseases classified elsewhere; M17.0 Bilateral primary osteoarthritis of knee; Z93.0 Tracheostomy status; Z88.8 Allergy status to other drugs, medicaments and biological substances; Z79.899 Other long term (current) drug therapy; Z98.890 Other specified postprocedural states; Z87.891 Personal history of nicotine dependence; Z85.01 Personal history of malignant neoplasm of esophagus; Z95.1 Presence of aortocoronary bypass graft; I25.2 Old myocardial infarction
CPT/HCPCS: 36415; 71045; 71046; 80048; 80053; 82565; 83605; 85014; 85018; 85025; 85049; 87070; 87077; 87186; 87205; 87811; 97602; J1650; J7512; J7620; Q0162

== ENCOUNTER 2022-07-13 11:07 | Outpatient (CLI) | payer MEDICARE, OTHER ==
[2022-07-13 12:11] LABS: ALT (SGPT) Less than 7 U/L (8-55); AST (SGOT) 13 U/L (5-34); Albumin 3.3 g/dL (3.4-4.8); Alkaline Phosphatase 118 U/L (40-110); Anion Gap 10 mmol/L (10-20); BUN (Urea Nitrogen) 7 mg/dL (8.4-25.7); Bilirubin, Total 0.6 mg/dL (0.2-1.2); Calc. Creatinine Clearance 0 mL/min (70-130); Calcium 8.9 mg/dL (7.8-10.44); Carbon Dioxide 32 mmol/L (23-31); Cardiac Risk 2.1 (Less than 4.5); Chloride 88 mmol/L (98-107); Cholesterol 147 mg/dl (< 200 Desired); Estimated GFR 101; Globulin 3.1 g/dL (2.4-3.5); Glucose 109 mg/dL (80-115); HDL Cholesterol 69 mg/dL (>60 Neg Risk); LDL Cholesterol, Calculated 67 mg/dL; Potassium 4.2 mmol/L (3.5-5.1); Protein, Total 6.4 g/dL (5.8-8.1); Sodium 126 mmol/L (136-145); Triglycerides 57 mg/dL (Less than 150)
== END 2022-07-13 11:08 | disposition home or self-care (01) ==
LOC: MADLAB 11:07 → MADRAD 11:08
PROVIDERS: ATTEND Family Medicine
DX: J18.9 Pneumonia, unspecified organism (principal); I11.0 Hypertensive heart disease with heart failure; E03.9 Hypothyroidism, unspecified; E78.5 Hyperlipidemia, unspecified
CPT/HCPCS: 36415; 71046; 80053; 80061; 84443

== ENCOUNTER 2022-07-22 15:36 | Emergency (ER) | payer MEDICARE, OTHER ==
[~2022-07-22 15:36] MED LIST changes: -Iopamidol 370 76% 125 ML VIAL FS ONE; +Iopamidol 370 76% 200 ML VIAL ONE
[2022-07-22] MEDS ORDERED: methylPREDNISolone Sod Succ/PF 125 MG/2 ML VIAL ONE (16:26)
[2022-07-22] MEDS ORDERED: Sodium Chloride 0.9% 500 ML ONE ×2 (16:26→18:22)
[2022-07-22] MEDS ORDERED: Ipratropium/Albuterol 3 ML NEB ONE (16:26)
[2022-07-22] MEDS ORDERED: Vancomycin 1 GM VIAL ONE (16:54)
[2022-07-22] MEDS ORDERED: Sodium Chloride 0.9% 250 ML 250 ML ONE (16:54)
[2022-07-22] MEDS ORDERED: Sodium Chloride 0.9% 100 ML ONE (16:54)
[2022-07-22] MEDS ORDERED: Cefepime 2 GM VIAL ONE (16:54)
[2022-07-22 17:07] LABS: ALT (SGPT) 7 U/L (8-55); AST (SGOT) 12 U/L (5-34); Albumin 3.4 g/dL (3.4-4.8); Alkaline Phosphatase 107 U/L (40-110); Anion Gap 14 mmol/L (10-20); BUN (Urea Nitrogen) 11 mg/dL (8.4-25.7); Band 3 % (5-11); Bilirubin, Total 0.4 mg/dL (0.2-1.2); Calc. Creatinine Clearance 0 mL/min (70-130); Carbon Dioxide 28 mmol/L (23-31); Chloride 95 mmol/L (98-107); Eosinophils 2 % (0-10); Estimated GFR 99; Globulin 3.3 g/dL (2.4-3.5); Hemoglobin 12.9 g/dL (14.0-18.0); Lymphocytes 7 % (21-51); MDiff Complete? YES; Mean Corpuscular HGB CONC 31.2 g/dL (32.0-36.0); Mean Corpuscular Hemoglobin 29.2 pg (27.0-31.0); Mean Corpuscular Volume 93.3 fl (78.0-98.0); Mean Platelet Volume 8.5 fL (7.4-10.4); Monocytes 3 % (0-10); Neutrophil 82 % (42-75); Platelet Count 349 10x3/uL (130-400); Platelet Morphology Comment Appears Adequate; Potassium 4.1 mmol/L (3.5-5.1); Protein, Total 6.7 g/dL (5.8-8.1); RBC Distribution Width 13.8 % (11.5-14.5); Reactive Lymphocytes 3 % (0-10); Red Blood Cell (RBC) Count 4.43 mill/uL (4.70-6.10); Sodium 133 mmol/L (136-145)
[2022-07-22 17:09] LABS: Base Excess-Venous 4.3 mmol/L (-2.0 to 3.0); Bicarbonate (HCO3v) 33.2 mmol/L (22.0-28.0); CO2 Tension (PvCO2) 67.4 mmHg (42.0-51.0); Calcium, Ionized 1.16 mmol/L (1.15-1.33); Chloride 97 mmol/L (98-107); Glucose 46 mg/dL (80-115); Hemoglobin - Calc 15.6 g/dL (14.0-18.0); Potassium 4.2 mmol/L (3.5-5.1); Sodium 135 mmol/L (138-145); T. Carbon Dioxide 35.3 mmol/L (22.0-28.0); vO2 Saturation-calc 99.1 % (60.0-85.0)
[2022-07-22] MEDS ORDERED: Dextrose 50% Abboject 50 ML SYRINGE ONE (18:00)
[2022-07-22 19:01] LABS: SARS-CoV-2 NAA Rapid Test Not Detected (NotDetected)
== END 2022-07-22 19:08 | disposition short-term general hospital (02) ==
LOC: MADERS 15:36
DX: A41.9 Sepsis, unspecified organism (principal); R65.20 Severe sepsis without septic shock; J18.9 Pneumonia, unspecified organism; J96.22 Acute and chronic respiratory failure with hypercapnia; E16.2 Hypoglycemia, unspecified; I25.10 Atherosclerotic heart disease of native coronary artery without angina pectoris; I25.2 Old myocardial infarction; J44.9 Chronic obstructive pulmonary disease, unspecified; Z20.822 Contact with and (suspected) exposure to COVID-19; Z87.891 Personal history of nicotine dependence; Z79.01 Long term (current) use of anticoagulants; Z79.82 Long term (current) use of aspirin; Z79.899 Other long term (current) drug therapy
CPT/HCPCS: 36416; 71045; 71275; 80053; 82330; 82435; 82803; 83605; 83735; 83880; 84132; 84295; 84484; 85014; 85025; 87040; 93005; 96365; 96367; 96375; J0692; J2930; J3370; J3490; J7030; J7050; J7620; J7999; U0002

== ENCOUNTER 2022-07-29 10:24 | Inpatient (IN) | payer MEDICARE, MEDICAID ==
[2022-07-29] MEDS ORDERED: HYDROcodone/Acetaminophen 5/325 mg Tablet PO PRN (17:35)
[2022-07-29] MEDS ORDERED: hydrOXYzine 25 MG TAB PO PRN (17:36)
[2022-07-29] MEDS ORDERED: Lantiseptic Ointment 130 GM JAR TOP PRN (17:36)
[2022-07-29] MEDS ORDERED: Acetaminophen 500 MG TAB PO PRN (17:37)
[2022-07-29] MEDS ORDERED: Acetaminophen 325 MG TAB PO PRN (17:38)
[2022-07-29] MEDS: Ipratropium/Albuterol 3 ML NEB NEB SCH ×2 (17:58→23:18)
[2022-07-29] MEDS: Sodium Chloride 1 GM TAB PO SCH (20:57)
[2022-07-29] MEDS: guaiFENesin ER 600 MG TAB PO SCH (20:57)
[2022-07-29] MEDS: Midodrine HCl 5 MG TAB PO SCH (20:57)
[2022-07-29] MEDS: Diclofenac 1% 100 GM GEL TP SCH (20:58)
[2022-07-29] MEDS: Famotidine 20 MG TAB PO SCH (20:58)
[2022-07-30] MEDS: Ipratropium/Albuterol 3 ML NEB NEB SCH ×3 (05:38→17:24)
[2022-07-30] MEDS ORDERED: Levothyroxine Sodium 112 MCG TAB PO SCH (06:00)
[2022-07-30] MEDS: Sodium Chloride 1 GM TAB PO SCH ×2 (08:25→20:04)
[2022-07-30] MEDS: Diclofenac 1% 100 GM GEL TP SCH (08:25)
[2022-07-30] MEDS: Midodrine HCl 5 MG TAB PO SCH ×3 (08:25→20:04)
[2022-07-30] MEDS: guaiFENesin ER 600 MG TAB PO SCH ×2 (08:25→20:04)
[2022-07-30] MEDS: Famotidine 20 MG TAB PO SCH ×2 (08:27→20:04)
[2022-07-30] MEDS ORDERED: Meloxicam 7.5 MG TAB PO SCH (09:00)
[2022-07-30] MEDS ORDERED: Polyethylene Glycol 3350 17 GM Packet PO SCH (09:00)
[2022-07-30] MEDS ORDERED: Acetaminophen 325 MG TAB PO PRN (10:45)
[2022-07-30] MEDS ORDERED: hydrOXYzine 25 MG TAB PO PRN (10:45)
[2022-07-30] MEDS: HYDROcodone/Acetaminophen 5/325 mg Tablet PO PRN (11:49)
[2022-07-30] MEDS ORDERED: Midodrine HCl 5 MG TAB PO SCH (15:00)
[2022-07-30] MEDS: Apixaban 5 MG TAB PO SCH (20:04)
[2022-07-30] MEDS: Senokot S 8.6-50 MG TAB PO SCH (20:04)
[2022-07-30] MEDS: Lantiseptic Ointment 130 GM JAR TOP SCH (20:07)
[2022-07-30] MEDS ORDERED: Lantiseptic Ointment 130 GM JAR TOP SCH (21:00)
[2022-07-31] MEDS: Ipratropium/Albuterol 3 ML NEB NEB SCH ×5 (00:33→23:51)
[2022-07-31] MEDS: Levothyroxine Sodium 112 MCG TAB PO SCH (05:01)
[2022-07-31] MEDS: Apixaban 5 MG TAB PO SCH ×2 (08:39→21:01)
[2022-07-31] MEDS: guaiFENesin ER 600 MG TAB PO SCH ×2 (08:39→21:01)
[2022-07-31] MEDS: Atorvastatin Calcium 40 MG TAB PO SCH (08:39)
[2022-07-31] MEDS: Meloxicam 7.5 MG TAB PO SCH (08:39)
[2022-07-31] MEDS: Sodium Chloride 1 GM TAB PO SCH ×2 (08:39→21:01)
[2022-07-31] MEDS: Midodrine HCl 5 MG TAB PO SCH ×3 (08:40→21:00)
[2022-07-31] MEDS: Famotidine 20 MG TAB PO SCH ×2 (08:40→21:01)
[2022-07-31] MEDS: Polyethylene Glycol 3350 17 GM Packet PO SCH (08:41)
[2022-07-31] MEDS: Lantiseptic Ointment 130 GM JAR TOP SCH ×2 (08:41→21:03)
[2022-07-31] MEDS: Senokot S 8.6-50 MG TAB PO SCH ×2 (08:41→21:01)
[2022-07-31] MEDS: HYDROcodone/Acetaminophen 5/325 mg Tablet PO PRN (08:44)
[2022-07-31] MEDS ORDERED: Non-Formulary Item 1 EACH (Levothyroxine Sodium [Levothyroxine] 112 MCG Capsule) PO SCH (09:00)
[2022-07-31] MEDS ORDERED: methylPREDNISolone Sod Succ 40 MG VIAL IVP SCH (18:30)
[2022-07-31] MEDS: Ipratropium/Albuterol 3 ML NEB NEB PRN (18:49)
[2022-08-01] MEDS: Levothyroxine Sodium 112 MCG TAB PO SCH (05:14)
[2022-08-01] MEDS: Ipratropium/Albuterol 3 ML NEB NEB SCH ×3 (05:16→17:45)
[2022-08-01] MEDS: Apixaban 5 MG TAB PO SCH ×2 (08:41→21:22)
[2022-08-01] MEDS: Polyethylene Glycol 3350 17 GM Packet PO SCH (08:41)
[2022-08-01] MEDS: Meloxicam 7.5 MG TAB PO SCH (08:42)
[2022-08-01] MEDS: Sodium Chloride 1 GM TAB PO SCH ×2 (08:42→21:21)
[2022-08-01] MEDS: guaiFENesin ER 600 MG TAB PO SCH ×2 (08:42→21:22)
[2022-08-01] MEDS: Lantiseptic Ointment 130 GM JAR TOP SCH ×2 (08:43→21:22)
[2022-08-01] MEDS: Atorvastatin Calcium 40 MG TAB PO SCH (08:43)
[2022-08-01] MEDS: Midodrine HCl 5 MG TAB PO SCH ×3 (08:43→21:22)
[2022-08-01] MEDS: Famotidine 20 MG TAB PO SCH ×2 (08:43→21:22)
[2022-08-01] MEDS: Senokot S 8.6-50 MG TAB PO SCH ×2 (08:43→21:22)
[2022-08-01] MEDS: methylPREDNISolone Sod Succ 40 MG VIAL IVP SCH (15:44)
[2022-08-02] MEDS: Ipratropium/Albuterol 3 ML NEB NEB SCH ×5 (00:56→23:40)
[2022-08-02] MEDS: Levothyroxine Sodium 112 MCG TAB PO SCH (05:52)
[2022-08-02] MEDS: Midodrine HCl 5 MG TAB PO SCH ×3 (08:34→20:59)
[2022-08-02] MEDS: Atorvastatin Calcium 40 MG TAB PO SCH (08:34)
[2022-08-02] MEDS: guaiFENesin ER 600 MG TAB PO SCH ×2 (08:34→20:59)
[2022-08-02] MEDS: Apixaban 5 MG TAB PO SCH ×2 (08:34→20:59)
[2022-08-02] MEDS: Sodium Chloride 1 GM TAB PO SCH ×2 (08:34→20:59)
[2022-08-02] MEDS: Senokot S 8.6-50 MG TAB PO SCH ×2 (08:34→21:00)
[2022-08-02] MEDS: Meloxicam 7.5 MG TAB PO SCH (08:35)
[2022-08-02] MEDS: Famotidine 20 MG TAB PO SCH ×2 (08:35→20:59)
[2022-08-02] MEDS: Lantiseptic Ointment 130 GM JAR TOP SCH ×2 (08:36→21:00)
[2022-08-02] MEDS: Polyethylene Glycol 3350 17 GM Packet PO SCH (08:36)
[2022-08-02] MEDS: methylPREDNISolone Sod Succ 40 MG VIAL IVP SCH (16:22)
[2022-08-02] MEDS: HYDROcodone/Acetaminophen 5/325 mg Tablet PO PRN (21:05)
[2022-08-03] MEDS: HYDROcodone/Acetaminophen 5/325 mg Tablet PO PRN ×2 (05:43→20:53)
[2022-08-03] MEDS: Levothyroxine Sodium 112 MCG TAB PO SCH (05:43)
[2022-08-03] MEDS: Ipratropium/Albuterol 3 ML NEB NEB SCH ×4 (05:44→23:53)
[2022-08-03] MEDS: Famotidine 20 MG TAB PO SCH ×2 (08:06→20:50)
[2022-08-03] MEDS: Lantiseptic Ointment 130 GM JAR TOP SCH ×2 (08:06→20:51)
[2022-08-03] MEDS: Sodium Chloride 1 GM TAB PO SCH ×2 (08:06→20:50)
[2022-08-03] MEDS: guaiFENesin ER 600 MG TAB PO SCH ×2 (08:06→20:50)
[2022-08-03] MEDS: Midodrine HCl 5 MG TAB PO SCH ×4 (08:06→20:50)
[2022-08-03] MEDS: Apixaban 5 MG TAB PO SCH ×2 (08:06→20:50)
[2022-08-03] MEDS: Atorvastatin Calcium 40 MG TAB PO SCH (08:06)
[2022-08-03] MEDS: Senokot S 8.6-50 MG TAB PO SCH ×2 (08:06→20:50)
[2022-08-03] MEDS: Meloxicam 7.5 MG TAB PO SCH (08:06)
[2022-08-03] MEDS: Polyethylene Glycol 3350 17 GM Packet PO SCH (08:07)
[2022-08-03] MEDS ORDERED: Acetaminophen 325 MG TAB PO PRN (12:26)
[2022-08-03] MEDS ORDERED: predniSONE 20 MG TAB PO SCH (17:15)
[2022-08-04 05:22] LABS: Hemoglobin 10.6 g/dL (14.0-18.0); Platelet Count 399 10x3/uL (130-400)
[2022-08-04] MEDS: Levothyroxine Sodium 112 MCG TAB PO SCH (05:33)
[2022-08-04] MEDS: Ipratropium/Albuterol 3 ML NEB NEB SCH ×4 (05:34→23:39)
[2022-08-04] MEDS: Polyethylene Glycol 3350 17 GM Packet PO SCH (08:01)
[2022-08-04] MEDS: Sodium Chloride 1 GM TAB PO SCH ×2 (08:01→20:24)
[2022-08-04] MEDS: Atorvastatin Calcium 40 MG TAB PO SCH (08:02)
[2022-08-04] MEDS: predniSONE 20 MG TAB PO SCH (08:02)
[2022-08-04] MEDS: Meloxicam 7.5 MG TAB PO SCH (08:02)
[2022-08-04] MEDS: Senokot S 8.6-50 MG TAB PO SCH ×2 (08:02→20:24)
[2022-08-04] MEDS: Apixaban 5 MG TAB PO SCH ×2 (08:02→20:23)
[2022-08-04] MEDS: guaiFENesin ER 600 MG TAB PO SCH ×2 (08:03→20:23)
[2022-08-04] MEDS: Famotidine 20 MG TAB PO SCH ×2 (08:03→20:23)
[2022-08-04] MEDS: Midodrine HCl 5 MG TAB PO SCH ×3 (08:03→20:24)
[2022-08-04] MEDS: Lantiseptic Ointment 130 GM JAR TOP SCH ×2 (08:04→20:23)
[2022-08-04] MEDS: Ipratropium/Albuterol 3 ML NEB NEB PRN (12:04)
[2022-08-04] MEDS: HYDROcodone/Acetaminophen 5/325 mg Tablet PO PRN (20:27)
[2022-08-05] MEDS: Ipratropium/Albuterol 3 ML NEB NEB SCH ×4 (04:57→23:02)
[2022-08-05] MEDS: Levothyroxine Sodium 112 MCG TAB PO SCH (04:58)
[2022-08-05] MEDS: Apixaban 5 MG TAB PO SCH ×2 (08:09→20:51)
[2022-08-05] MEDS: Polyethylene Glycol 3350 17 GM Packet PO SCH (08:09)
[2022-08-05] MEDS: Senokot S 8.6-50 MG TAB PO SCH ×2 (08:09→20:51)
[2022-08-05] MEDS: Sodium Chloride 1 GM TAB PO SCH ×2 (08:09→20:51)
[2022-08-05] MEDS: guaiFENesin ER 600 MG TAB PO SCH ×2 (08:09→20:51)
[2022-08-05] MEDS: Famotidine 20 MG TAB PO SCH ×2 (08:10→20:52)
[2022-08-05] MEDS: Meloxicam 7.5 MG TAB PO SCH (08:10)
[2022-08-05] MEDS: predniSONE 20 MG TAB PO SCH (08:10)
[2022-08-05] MEDS: Midodrine HCl 5 MG TAB PO SCH ×3 (08:10→20:51)
[2022-08-05] MEDS: Atorvastatin Calcium 40 MG TAB PO SCH (08:10)
[2022-08-05] MEDS: Lantiseptic Ointment 130 GM JAR TOP SCH ×2 (08:19→20:52)
[2022-08-05] MEDS: HYDROcodone/Acetaminophen 5/325 mg Tablet PO PRN (20:52)
[2022-08-06] MEDS: Levothyroxine Sodium 112 MCG TAB PO SCH (05:36)
[2022-08-06] MEDS: Ipratropium/Albuterol 3 ML NEB NEB SCH ×4 (05:37→23:30)
[2022-08-06] MEDS: Meloxicam 7.5 MG TAB PO SCH (08:11)
[2022-08-06] MEDS: Apixaban 5 MG TAB PO SCH ×2 (08:11→20:33)
[2022-08-06] MEDS: Senokot S 8.6-50 MG TAB PO SCH ×2 (08:12→20:33)
[2022-08-06] MEDS: predniSONE 20 MG TAB PO SCH (08:12)
[2022-08-06] MEDS: guaiFENesin ER 600 MG TAB PO SCH ×2 (08:12→20:32)
[2022-08-06] MEDS: Sodium Chloride 1 GM TAB PO SCH ×2 (08:12→20:32)
[2022-08-06] MEDS: Midodrine HCl 5 MG TAB PO SCH ×3 (08:12→20:33)
[2022-08-06] MEDS: Polyethylene Glycol 3350 17 GM Packet PO SCH (08:12)
[2022-08-06] MEDS: Famotidine 20 MG TAB PO SCH ×2 (08:12→20:33)
[2022-08-06] MEDS: Atorvastatin Calcium 40 MG TAB PO SCH (08:12)
[2022-08-06] MEDS: Lantiseptic Ointment 130 GM JAR TOP SCH ×2 (08:12→21:28)
[2022-08-06] MEDS: HYDROcodone/Acetaminophen 5/325 mg Tablet PO PRN (20:33)
[2022-08-07] MEDS: Ipratropium/Albuterol 3 ML NEB NEB SCH ×3 (05:02→17:04)
[2022-08-07] MEDS: Levothyroxine Sodium 112 MCG TAB PO SCH (05:02)
[2022-08-07] MEDS: Sodium Chloride 1 GM TAB PO SCH ×2 (08:11→20:32)
[2022-08-07] MEDS: Midodrine HCl 5 MG TAB PO SCH ×3 (08:11→20:32)
[2022-08-07] MEDS: Famotidine 20 MG TAB PO SCH ×2 (08:11→20:31)
[2022-08-07] MEDS: Apixaban 5 MG TAB PO SCH ×2 (08:12→20:31)
[2022-08-07] MEDS: Atorvastatin Calcium 40 MG TAB PO SCH (08:12)
[2022-08-07] MEDS: guaiFENesin ER 600 MG TAB PO SCH ×2 (08:12→20:31)
[2022-08-07] MEDS: Polyethylene Glycol 3350 17 GM Packet PO SCH (08:12)
[2022-08-07] MEDS: Lantiseptic Ointment 130 GM JAR TOP SCH ×2 (08:12→20:33)
[2022-08-07] MEDS: Senokot S 8.6-50 MG TAB PO SCH ×2 (08:12→20:31)
[2022-08-07] MEDS: predniSONE 20 MG TAB PO SCH (08:12)
[2022-08-07] MEDS: Meloxicam 7.5 MG TAB PO SCH (08:12)
[2022-08-07] MEDS: HYDROcodone/Acetaminophen 5/325 mg Tablet PO PRN (08:18)
[2022-08-08] MEDS: Ipratropium/Albuterol 3 ML NEB NEB SCH ×5 (01:31→23:21)
[2022-08-08] MEDS: Levothyroxine Sodium 112 MCG TAB PO SCH (05:52)
[2022-08-08] MEDS: Midodrine HCl 5 MG TAB PO SCH ×3 (08:15→20:02)
[2022-08-08] MEDS: Apixaban 5 MG TAB PO SCH ×2 (08:18→20:01)
[2022-08-08] MEDS: Senokot S 8.6-50 MG TAB PO SCH ×2 (08:18→20:01)
[2022-08-08] MEDS: guaiFENesin ER 600 MG TAB PO SCH ×2 (08:18→20:01)
[2022-08-08] MEDS: predniSONE 20 MG TAB PO SCH (08:18)
[2022-08-08] MEDS: Famotidine 20 MG TAB PO SCH ×2 (08:18→20:01)
[2022-08-08] MEDS: Atorvastatin Calcium 40 MG TAB PO SCH (08:18)
[2022-08-08] MEDS: Sodium Chloride 1 GM TAB PO SCH ×2 (08:18→20:01)
[2022-08-08] MEDS: Meloxicam 7.5 MG TAB PO SCH (08:18)
[2022-08-08] MEDS: Polyethylene Glycol 3350 17 GM Packet PO SCH (08:19)
[2022-08-08] MEDS: Lantiseptic Ointment 130 GM JAR TOP SCH ×2 (08:19→20:02)
[2022-08-08] MEDS: HYDROcodone/Acetaminophen 5/325 mg Tablet PO PRN (08:22)
[2022-08-08] MEDS ORDERED: Furosemide 20 MG TAB PO SCH (11:30)
[2022-08-09] MEDS: HYDROcodone/Acetaminophen 5/325 mg Tablet PO PRN ×3 (00:35→16:09)
[2022-08-09] MEDS: Levothyroxine Sodium 112 MCG TAB PO SCH (05:14)
[2022-08-09] MEDS: Ipratropium/Albuterol 3 ML NEB NEB SCH ×4 (05:15→23:01)
[2022-08-09] MEDS: predniSONE 10 MG TAB PO SCH (08:08)
[2022-08-09] MEDS: Atorvastatin Calcium 40 MG TAB PO SCH (08:08)
[2022-08-09] MEDS: Senokot S 8.6-50 MG TAB PO SCH ×2 (08:08→20:14)
[2022-08-09] MEDS: Meloxicam 7.5 MG TAB PO SCH (08:08)
[2022-08-09] MEDS: Sodium Chloride 1 GM TAB PO SCH ×2 (08:08→20:14)
[2022-08-09] MEDS: guaiFENesin ER 600 MG TAB PO SCH ×2 (08:09→20:14)
[2022-08-09] MEDS: Famotidine 20 MG TAB PO SCH ×2 (08:09→20:15)
[2022-08-09] MEDS: Furosemide 20 MG TAB PO SCH (08:09)
[2022-08-09] MEDS: Lantiseptic Ointment 130 GM JAR TOP SCH ×2 (08:09→20:15)
[2022-08-09] MEDS: Polyethylene Glycol 3350 17 GM Packet PO SCH (08:09)
[2022-08-09] MEDS: Apixaban 5 MG TAB PO SCH ×2 (08:09→20:15)
[2022-08-09] MEDS: Midodrine HCl 5 MG TAB PO SCH ×3 (09:00→20:15)
[2022-08-10] MEDS: Levothyroxine Sodium 112 MCG TAB PO SCH (05:33)
[2022-08-10] MEDS: Ipratropium/Albuterol 3 ML NEB NEB SCH ×4 (05:33→23:11)
[2022-08-10] MEDS: HYDROcodone/Acetaminophen 5/325 mg Tablet PO PRN ×2 (07:58→14:23)
[2022-08-10] MEDS: predniSONE 10 MG TAB PO SCH (08:00)
[2022-08-10] MEDS: guaiFENesin ER 600 MG TAB PO SCH ×2 (08:00→20:09)
[2022-08-10] MEDS: Sodium Chloride 1 GM TAB PO SCH ×2 (08:00→20:09)
[2022-08-10] MEDS: Famotidine 20 MG TAB PO SCH ×2 (08:00→20:09)
[2022-08-10] MEDS: Furosemide 20 MG TAB PO SCH ×3 (08:00→14:23)
[2022-08-10] MEDS: Apixaban 5 MG TAB PO SCH ×2 (08:00→20:09)
[2022-08-10] MEDS: Meloxicam 7.5 MG TAB PO SCH (08:00)
[2022-08-10] MEDS: Polyethylene Glycol 3350 17 GM Packet PO SCH (08:01)
[2022-08-10] MEDS: Lantiseptic Ointment 130 GM JAR TOP SCH ×2 (08:01→20:10)
[2022-08-10] MEDS: Atorvastatin Calcium 40 MG TAB PO SCH (08:01)
[2022-08-10] MEDS: Midodrine HCl 5 MG TAB PO SCH ×3 (08:01→20:09)
[2022-08-10] MEDS: Senokot S 8.6-50 MG TAB PO SCH ×2 (08:01→20:09)
[2022-08-10 13:00] VITALS: BMI 19.3
[2022-08-11] MEDS: Ipratropium/Albuterol 3 ML NEB NEB SCH ×4 (05:49→23:56)
[2022-08-11] MEDS: Levothyroxine Sodium 112 MCG TAB PO SCH (05:50)
[2022-08-11 06:19] LABS: #Eosinphils 0.5 thou/uL (0.0-0.7); Hemoglobin 10.1 g/dL (14.0-18.0); Mean Corpuscular HGB CONC 31.3 g/dL (32.0-36.0)
[2022-08-11 06:28] LABS: Anion Gap 9 mmol/L (10-20); BUN (Urea Nitrogen) 12 mg/dL (8.4-25.7); Calc. Creatinine Clearance 114 mL/min (70-130); Calcium 8.2 mg/dL (7.8-10.44); Carbon Dioxide 35 mmol/L (23-31); Chloride 95 mmol/L (98-107); Estimated GFR 107; Glucose 87 mg/dL (80-115); Potassium 4.1 mmol/L (3.5-5.1); Sodium 135 mmol/L (136-145)
[2022-08-11 06:39] LABS: #Basophils 0.1 thou/uL (0.0-0.2); #Lymphocytes 1.3 thou/uL (1.20-3.40); #Monocytes 0.6 thou/uL (0.11-0.59); #Neutrophils 6.8 thou/uL (1.40-6.50); %Basophils 0.6 % (0.0-1.0); %Eosinophils 5.6 % (0.0-10.0); %Lymphocytes 13.6 % (21.0-51.0); %Monocytes 6.6 % (0.0-10.0); %Neutrophils 73.6 % (42.0-75.0); Mean Corpuscular Hemoglobin 28.9 pg (27.0-31.0); Mean Corpuscular Volume 92.4 fl (78.0-98.0); Platelet Count 282 10x3/uL (130-400); White Blood Cell (WBC) Count 9.2 10x3/uL (4.8-10.8)
[2022-08-11] MEDS ORDERED: Loperamide HCl 2 MG CAP PO PRN (08:29)
[2022-08-11] MEDS: guaiFENesin ER 600 MG TAB PO SCH ×2 (08:38→21:14)
[2022-08-11] MEDS: predniSONE 10 MG TAB PO SCH (08:39)
[2022-08-11] MEDS: Atorvastatin Calcium 40 MG TAB PO SCH (08:39)
[2022-08-11] MEDS: Apixaban 5 MG TAB PO SCH ×2 (08:39→21:14)
[2022-08-11] MEDS: Sodium Chloride 1 GM TAB PO SCH ×2 (08:39→21:14)
[2022-08-11] MEDS: Famotidine 20 MG TAB PO SCH ×2 (08:39→21:14)
[2022-08-11] MEDS: Furosemide 20 MG TAB PO SCH ×2 (08:39→14:53)
[2022-08-11] MEDS: Lantiseptic Ointment 130 GM JAR TOP SCH ×2 (08:40→21:19)
[2022-08-11] MEDS: Midodrine HCl 5 MG TAB PO SCH ×3 (08:41→21:23)
[2022-08-11] MEDS: Senokot S 8.6-50 MG TAB PO SCH ×2 (08:41→21:19)
[2022-08-11] MEDS: Meloxicam 7.5 MG TAB PO SCH (08:41)
[2022-08-11] MEDS: Polyethylene Glycol 3350 17 GM Packet PO SCH (08:41)
[2022-08-12] MEDS: Levothyroxine Sodium 112 MCG TAB PO SCH (05:29)
[2022-08-12] MEDS: Ipratropium/Albuterol 3 ML NEB NEB SCH ×4 (05:29→23:54)
[2022-08-12] MEDS: Meloxicam 7.5 MG TAB PO SCH (09:08)
[2022-08-12] MEDS: Apixaban 5 MG TAB PO SCH ×2 (09:08→21:06)
[2022-08-12] MEDS: Furosemide 20 MG TAB PO SCH ×2 (09:08→14:35)
[2022-08-12] MEDS: guaiFENesin ER 600 MG TAB PO SCH ×2 (09:08→21:06)
[2022-08-12] MEDS: Famotidine 20 MG TAB PO SCH ×2 (09:08→21:06)
[2022-08-12] MEDS: predniSONE 5 MG TAB PO SCH (09:08)
[2022-08-12] MEDS: Polyethylene Glycol 3350 17 GM Packet PO SCH (09:08)
[2022-08-12] MEDS: Sodium Chloride 1 GM TAB PO SCH ×2 (09:09→21:06)
[2022-08-12] MEDS: Lantiseptic Ointment 130 GM JAR TOP SCH ×2 (09:09→21:06)
[2022-08-12] MEDS: Atorvastatin Calcium 40 MG TAB PO SCH (09:09)
[2022-08-12] MEDS: Senokot S 8.6-50 MG TAB PO SCH ×2 (09:09→21:06)
[2022-08-12] MEDS: Midodrine HCl 5 MG TAB PO SCH ×3 (09:09→21:11)
[2022-08-12] MEDS: HYDROcodone/Acetaminophen 5/325 mg Tablet PO PRN (21:11)
[2022-08-13] MEDS: Levothyroxine Sodium 112 MCG TAB PO SCH (05:30)
[2022-08-13] MEDS: Ipratropium/Albuterol 3 ML NEB NEB SCH ×2 (05:31→13:22)
[2022-08-13 08:08] VITALS: BP 119/68; TEMP 98.1
[2022-08-13] MEDS: guaiFENesin ER 600 MG TAB PO SCH (08:32)
[2022-08-13] MEDS: Famotidine 20 MG TAB PO SCH (08:32)
[2022-08-13] MEDS: Senokot S 8.6-50 MG TAB PO SCH (08:33)
[2022-08-13] MEDS: Apixaban 5 MG TAB PO SCH (08:33)
[2022-08-13] MEDS: HYDROcodone/Acetaminophen 5/325 mg Tablet PO PRN (08:33)
[2022-08-13] MEDS: Furosemide 20 MG TAB PO SCH ×2 (08:33→15:01)
[2022-08-13] MEDS: Sodium Chloride 1 GM TAB PO SCH (08:33)
[2022-08-13] MEDS: Midodrine HCl 5 MG TAB PO SCH ×2 (08:33→15:01)
[2022-08-13] MEDS: Polyethylene Glycol 3350 17 GM Packet PO SCH (08:34)
[2022-08-13] MEDS: Lantiseptic Ointment 130 GM JAR TOP SCH (08:34)
[2022-08-13] MEDS: predniSONE 5 MG TAB PO SCH (08:34)
[2022-08-13] MEDS: Atorvastatin Calcium 40 MG TAB PO SCH (08:34)
[2022-08-13] MEDS: Meloxicam 7.5 MG TAB PO SCH (08:34)
== END 2022-08-13 17:23 | DRG 177 ==
LOC: MADMS 14:30
PROVIDERS: ADMIT Emergency Medicine; ATTEND Emergency Medicine
DX: J15.6 Pneumonia due to other Gram-negative bacteria (principal); J96.21 Acute and chronic respiratory failure with hypoxia; E44.0 Moderate protein-calorie malnutrition; J44.1 Chronic obstructive pulmonary disease with (acute) exacerbation; J44.0 Chronic obstructive pulmonary disease with (acute) lower respiratory infection; E87.1 Hypo-osmolality and hyponatremia; Z68.1 Body mass index [BMI] 19.9 or less, adult; R53.1 Weakness; Z66 Do not resuscitate; M17.9 Osteoarthritis of knee, unspecified; I25.10 Atherosclerotic heart disease of native coronary artery without angina pectoris; I95.1 Orthostatic hypotension; I48.0 Paroxysmal atrial fibrillation; Z93.0 Tracheostomy status; Z88.1 Allergy status to other antibiotic agents; Z79.899 Other long term (current) drug therapy; I25.2 Old myocardial infarction; Z95.1 Presence of aortocoronary bypass graft; Z98.890 Other specified postprocedural states
CPT/HCPCS: 36415; 36416; 71045; 80048; 85014; 85018; 85025; 85049; 94640; J2920; J7512; J7620